=== PATIENT | female | born 1955 | race American Indian/Alaskan Native ===

== ENCOUNTER 2022-01-21 22:55 | Inpatient (IN) | payer SELFPAY ==
[2022-01-21] MEDS ORDERED: CLOPIDOGREL 300 MG TAB ONE (23:00)
[2022-01-21] MEDS ORDERED: ASPIRIN 81 MG TAB CHEW ONE (23:10)
[2022-01-21] MEDS ORDERED: CLOPIDOGREL 300 MG TAB PO ONE (23:13)
[2022-01-21] MEDS ORDERED: HEPARIN 10,000 UNITS/10 ML VIAL IV PRN (23:13)
[2022-01-21] MEDS ORDERED: ONDANSETRON 4 MG/2 ML INJ IV ONE (23:13)
[2022-01-21] MEDS ORDERED: ASPIRIN 81 MG TAB CHEW PO ONE (23:13)
[2022-01-21] MEDS ORDERED: HEPARIN 10,000 UNITS/10 ML VIAL IV ONE (23:13)
[2022-01-21] MEDS ORDERED: MORPHINE 4 MG/1 ML INJ IV ONE (23:14)
[2022-01-21] MEDS ORDERED: NITROGLYCERIN 0.4 MG TAB SUBL SL PRN ×2 (23:14→23:35)
[2022-01-21 23:29] LABS: Basophils # (Auto) 0.1 K/mm3 (0.0-0.1); Basophils % (Auto) 1.3 % (0.0-1.8); Eosinophils # (Auto) 0.1 K/mm3 (0.0-0.4); Eosinophils % (Auto) 1.7 % (0.0-4.3); Hematocrit 44.9 % (30.3-42.9); Hemoglobin 14.4 gm/dl (10.1-14.3); Lymphocytes # (Auto) 2.6 K/mm3 (1.2-5.4); Lymphocytes % (Auto) 31.1 % (13.4-35.0); Mean Corpuscular HGB Conc 32 % (30-34); Mean Corpuscular Volume 78 fl (79-97); Monocytes # (Auto) 0.4 K/mm3 (0.0-0.8); Monocytes % (Auto) 4.7 % (0.0-7.3); Platelet Count 296 K/mm3 (140-440); Red Blood Count 5.76 M/mm3 (3.65-5.03); Red Cell Distribution Width 17.2 % (13.2-15.2)
[2022-01-21] MEDS: NITROGLYCERIN DRIP 50 MG/250 ML BOTTLE IV SCH (23:32)
--- NOTE | 2022-01-21 23:32 | Emergency Department Report ---
ED Chest Pain HPI - General Chief Complaint: Chest Pain Stated Complaint: CHEST PAINS Time Seen by Provider: 01/21/22 23:12 Source: patient, family, RN notes reviewed Mode of arrival: Ambulatory Limitations: Physical Limitation - History of Present Illness Initial Comments: The patient was evaluated in the emergency department for symptoms described in the history of present illness. He/she was evaluated in the context of the global COVID-19 pandemic, which necessitated consideration that the patient might be at risk for infection with the virus that causes COVID-19. Institutional protocols and algorithms that pertain to the evaluation of patien ts at risk for COVID-19 are in a state of rapid change based on information released by regulatory bodies including the CDC and federal and state organizations. These policies and algorithms were followed during the patient's care in the emergency department. Please note that these policies, procedures and recommendations changed on a rapid basis. The patient is a 66-year-old female who presents to the ER today with a complaint of acute stuttering chest pain. She has nausea and some shortness of breath. She is found to be hypertensive in the emergency room, with evidence of septal STEMI with high lateral involvement. The patient denies hematemesis and bright red blood per rectum. The patient denies travel, surgery, immobilization, DVT and pulmonary embolism risk factors. A code STEMI was called overhead immediately upon evaluation. The EKG is transmitted to our technical solution architect, Dr. Durbin at 1109 pm, while simultaneously activating code STEMI. Patient medicated maximally in the emergency room, with full dose aspirin, 600 mg of Plavix at the recommendation of the aforementioned assistant superintendent for curriculum, initiation of nitroglycerin drip for hypertensive emergency with acute chest pain, and initiation of heparinization, also in conjunction with recommendation of Dr. Durbin Patient did endorse some resolution and improvement in symptoms with initiation of nitroglycerin drip. Discussed with critical care physician, Dr. Castro, who authorized admission to the ICU postcatheterization. Hospital physician, Dr. Suresh to admit Extensive discussion had with patient and daughter at the bedside, who articulated understanding. Complaint: chest pain -: Gradual Onset: during rest, during exertion Pain Location: substernal, left chest Severity: severe Quality: aching, heaviness Consistency: constant Improves With: nitroglycerin re: nausea Aspirin use within the Past 7 Days: (1) Yes - Related Data Allergies Allergy/AdvReac Type Severity Reaction Status Date / Time No Known Allergies Allergy Verified 01/21/22 23:36 Heart Score - HEART Score History: Highly suspicious EKG: Significant ST-depression Age: 45-65 Risk factors: 1-2 risk factors Troponin: > 3x normal limit HEART Score: 8 - EKG Read Time Time EKG Completed: 11:07 EKG Read Time: 11:08 - Critical Actions Critical Actions: >7 pts:50-65% risk of adverse cardiac event. Early invasive measures ED Review of Systems ROS: Stated complaint: CHEST PAINS Other details as noted in HPI Constitutional: malaise. denies: fever Eyes: denies: eye discharge ENT: denies: epistaxis Respiratory: shortness of breath Cardiovascular: chest pain Gastrointestinal: denies: hematemesis, melena, hematochezia Neurological: weakness Psychiatric: anxiety Hematological/Lymphatic: denies: easy bleeding ED Past Medical Hx - Past Medical History Previous Medical History?: Yes Hx Hypertension: Yes Hx Diabetes: Yes Hx Arthritis: Yes - Surgical History Past Surgical History?: Yes Additional Surgical History: - Social History Smoking Status: Never Smoker Substance Use Type: None ED Physical Exam - General Limitations: Physical Limitation General appearance: anxious, in distress - Head Head exam: Present: atraumatic, normocephalic - Eye Eye exam: Present: normal appearance, EOMI. Absent: nystagmus - ENT ENT exam: Present: normal exam, normal orophraynx, mucous membranes moist, no rmal external ear exam - Neck Neck exam: Present: normal inspection, full ROM. Absent: tenderness, meningismus - Respiratory Respiratory exam: Present: respiratory distress. Absent: rhonchi, stridor - Cardiovascular Cardiovascular Exam: Present: normal rhythm, tachycardia, normal heart sounds. Absent: bradycardia, irregular rhythm, systolic murmur, diastolic murmur, rubs, gallop - GI/Abdominal GI/Abdominal exam: Present: soft. Absent: distended, tenderness, guarding, rebound, rigid, pulsatile mass - Rectal Rectal exam: Present: normal inspection - External exam: Present: normal external exam - Extremities Exam Extremities exam: Present: normal inspection, full ROM, other (2+ pulses noted in the bilateral upper and lower extremities. There is no palpable cord. negative Homans sign. Muscular compartments are soft. The pelvis is stable.). Absent: pedal edema, calf tenderness - Back Exam Back exam: Present: normal inspection. Absent: tenderness, CVA tenderness (R), CVA tenderness (L), paraspinal tenderness, vertebral tenderness - Neurological Exam Neurological exam: Present: alert, oriented X3, other (No facial droop. Tongue midline. Extraocular movements intact bilaterally. Facial sensation intact to light touch in V1, V2, V3 distribution bilaterally. 5 and a 5 strength in 4 extremities. Sensation intact to light touch in 4 extremities.) - Psychiatric Psychiatric exam: Present: anxious - Skin Skin exam: Present: warm, dry, intact, normal color. Absent: rash ED Course Vital Signs 01/21/22 22:56 Temperature 99.1 F Pulse Rate 113 H Respiratory 24 Rate Blood Pressure 228/150 O2 Sat by Pulse 94 Oximetry - Reevaluation(s) Reevaluation #1: 01/21/22 23:42 Differential diagnosis, including but not limited to: Hypertensive emergency, STEMI, acute coronary syndrome, pulmonary edema Assessment and plan: 66-year-old female with very clinically concerning chest pain, accompanied by hypertension, and EKG suggestive of STEMI. Blood pressure markedly improved with initiation of nitroglycerin drip, blood pressure currently 165 mmHg systolic. To be medicated with aspirin, Plavix, heparin, morphine. Extensive discussion has been had with patient and family. Interventional cardiology to take patient to the cardiac catheterization lab for presumed STEMI. Critical care consulted, hospital physician to admit patient to the medical service. Please note that secondary to the time sensitive nature of presumed STEMI, patient will have left the emergency room before all of her laboratory studies have resulted. Therefore, she may have laboratory studies which are actionable, but she is no longer in the emergency room. We will therefore defer to the inpatient team to follow-up on her laboratory studies, and address any abnormalities, should be required. JALIL score - Jalil Score Age > 65: (0) No Aspirin use within the Past 7 Days: (1) Yes 3 or more CAD Risk Factors: (0) No 2 or more Angina events in past 24 hrs: (1) Yes Known CAD with more than 50% Stenosis: (1) Yes Elevated Cardiac Markers: (1) Yes ST Deviation Greater than 0.5mm: (1) Yes JALIL Score: 5 ED Medical Decision Making - Lab Data Result diagrams: 01/21/22 23:19 01/21/22 23:19 Vital Signs 01/21/22 22:56 Temperature 99.1 F Pulse Rate 113 H Respiratory 24 Rate Blood Pressure 228/150 O2 Sat by Pulse 94 Oximetry Lab Results 01/21/22 01/21/22 01/21/22 Range/Units 23:19 23:19 23:19 WBC 8.2 (4.5-11.0) K/mm3 RBC 5.76 H (3.65-5.03) M/mm3 Hgb 14.4 H (10.1-14.3) gm/dl Hct 44.9 H (30.3-42.9) % MCV 78 L (79-97) fl MCH 25 L (28-32) pg MCHC 32 (30-34) % RDW 17.2 H (13.2-15.2) % Plt Count 296 (140-440) K/mm3 Lymph % (Auto) 31.1 (13.4-35.0) % [place] % (Auto) 4.7 (0.0-7.3) % Eos % (Auto) 1.7 (0.0-4.3) % Baso % (Auto) 1.3 (0.0-1.8) % Lymph # (Auto) 2.6 (1.2-5.4) K/mm3 [place] # (Auto) 0.4 (0.0-0.8) K/mm3 Eos # (Auto) 0.1 (0.0-0.4) K/mm3 Baso # (Auto) 0.1 (0.0-0.1) K/mm3 Seg Neutrophils % 61.2 (40.0-70.0) % Seg Neutrophils # 5.1 (1.8-7.7) K/mm3 PT 13.4 (12.2-14.9) Sec. INR 0.92 (0.87-1.13) APTT 27.5 (24.2-36.6) Sec. Sodium 140 (137-145) mmol/L Potassium 3.5 L (3.6-5.0) mmol/L Chloride 100.3 (98-107) mmol/L Carbon Dioxide 25 (22-30) mmol/L Anion Gap 18 mmol/L BUN 12 (7-17) mg/dL Creatinine 0.7 (0.6-1.2) mg/dL Estimated GFR > 60 ml/min BUN/Creatinine Ratio 17 % Glucose 264 H (65-100) mg/dL Calcium 9.8 (8.4-10.2) mg/dL Total Bilirubin 0.20 (0.1-1.2) mg/dL AST 24 (5-40) units/L ALT 15 (7-56) units/L Alkaline Phosphatase 129 (35-129) units/L Total Creatine Kinase 249 H (30-135) units/L CK-MB (CK-2) 18.5 H (0.0-4.0) ng/mL CK-MB (CK-2) Rel Index 7.4 H (0-4) Troponin T 0.211 H* (0.00-0.029) ng/mL Total Protein 8.1 (6.3-8.2) g/dL Albumin 4.7 (3.9-5) g/dL Albumin/Globulin Ratio 1.4 % Blood Type Antibody Screen 01/21/22 Range/Units 23:19 WBC (4.5-11.0) K/mm3 RBC (3.65-5.03) M/mm3 Hgb (10.1-14.3) gm/dl Hct (30.3-42.9) % MCV (79-97) fl MCH (28-32) pg MCHC (30-34) % RDW (13.2-15.2) % Plt Count (140-440) K/mm3 Lymph % (Auto) (13.4-35.0) % [place] % (Auto) (0.0-7.3) % Eos % (Auto) (0.0-4.3) % Baso % (Auto) (0.0-1.8) % Lymph # (Auto) (1.2-5.4) K/mm3 [place] # (Auto) (0.0-0.8) K/mm3 Eos # (Auto) (0.0-0.4) K/mm3 Baso # (Auto) (0.0-0.1) K/mm3 Seg Neutrophils % (40.0-70.0) % Seg Neutrophils # (1.8-7.7) K/mm3 PT (12.2-14.9) Sec. INR (0.87-1.13) APTT (24.2-36.6) Sec. Sodium (137-145) mmol/L Potassium (3.6-5.0) mmol/L Chloride (98-107) mmol/L Carbon Dioxide (22-30) mmol/L Anion Gap mmol/L BUN (7-17) mg/dL Creatinine (0.6-1.2) mg/dL Estimated GFR ml/min BUN/Creatinine Ratio % Glucose (65-100) mg/dL Calcium (8.4-10.2) mg/dL Total Bilirubin (0.1-1.2) mg/dL AST (5-40) units/L ALT (7-56) units/L Alkaline Phosphatase (35-129) units/L Total Creatine Kinase (30-135) units/L CK-MB (CK-2) (0.0-4.0) ng/mL CK-MB (CK-2) Rel Index (0-4) Troponin T (0.00-0.029) ng/mL Total Protein (6.3-8.2) g/dL Albumin (3.9-5) g/dL Albumin/Globulin Ratio % Blood Type O POSITIVE Antibody Screen Negative Vital Signs 01/21/22 22:56 Temperature 99.1 F Pulse Rate 113 H Respiratory 24 Rate Blood Pressure 228/150 O2 Sat by Pulse 94 Oximetry - EKG Data -: EKG Interpreted by Mi - EKG Data Interpretation: acute FL 01/21/22 23:41 The initial EKG is interpreted by myself is consistent with STEMI. The initial EKG is interpreted at 23: 0 8 PM. This is a sinus rhythm, with a ventricular rate of 105 bpm. There is a leftward axis deviation. There is ST elevation consistent with STEMI V2, V3, V4, lead I, and aVL, with reciprocal depression in the inferior leads. There is normal P wave axis. There is no prior EKG available for comparison. - Radiology Data Radiology results: pending, report reviewed, image reviewed Chest single view INDICATION: Chest pain IMPRESSION: Mild bilateral interstitial edema. Heart size is within normal limits. Signer Name: Varun Dunbar MD Signed: 01/21/2022 10:47 PM Workstation Name: [email or web address] Critical Care Time: Yes Critical care time in (mins) excluding proc time.: 45 Critical care attestation.: If time is entered above; I have spent that time in minutes in the direct care of this critically ill patient, excluding procedure time. ED Disposition Clinical Impression: STEMI (ST elevation myocardial infarction), Hypertensive emergency Disposition: 09 ADMITTED INPATIENT Is pt being admited?: Yes Does the pt Need Aspirin: No (given in er) Condition: Critical Instructions: Hypertension (ED) Referrals: KAUSHAL CONNELLY MD [Primary Care Provider] - 3-5 Days
[2022-01-21] MEDS ORDERED: traMADol 50 MG TAB PO PRN (23:35)
[2022-01-21] MEDS ORDERED: DEXTROSE 50% IN WATER (25GM) 50 ML SYRINGE IV PRN (23:35)
[2022-01-21] MEDS ORDERED: ACETAMINOPHEN 325 MG TAB PO PRN (23:35)
--- NOTE | 2022-01-21 23:42 | History and Physical Report ---
History of Present Illness Date of examination: 01/21/22 Date of admission: 01/21/22 Chief complaint: Chest pain STEMI History of present illness: 66 years old female with history of hypertension, diabetes was brought to the emergency room because of severe chest pain 10/10 left-sided for last 1 hour. In the emergency room EKG consistent with septal acute myocardial infarction. She has nausea and some shortness of breath. She is found to be hypertensive in the emergency room, with evidence of septal STEMI with high lateral involvement. Initial troponin is 0.211. Subsequently Case was discussed with on-call interventional cardiology Dr. Hernández. Patient is going to the [facility] for cardiac cath and further evaluation and treatment.Patient medicated maximally in the emergency room, with full dose aspirin, 600 mg of Plavix at the recommendation of the aforementioned dealer development manager, initiation of nitroglycerin drip for hypertensive emergency with acute chest pain, and initiation of heparinization, also in conjunction with recommendation of Dr. Durbin. We also consult critical care Dr. Castro. Past History Past Medical History: arthritis, diabetes, hypertension Past Surgical History: , Other () Social history: smoking Family history: diabetes, hypertension Medications and Allergies Allergies Allergy/AdvReac Type Severity Reaction Status Date / Time No Known Allergies Allergy Verified 01/21/22 23:36 Active Meds: Active Medications Heparin Sodium (Porcine) (Heparin 10,000 Units/10 Ml Vial) 0 unit IV Q6H PRN; Protocol PRN Reason: Anti-Xa Assay less than 0.1 un Heparin Sodium (Porcine) (Heparin 1,000 Unit/1 Ml Vial) 4,000 unit IV BOLUS ONE Stop: 01/21/22 23:14 Heparin Sodium/Sodium Chloride (Heparin/ 0.45% Nacl-25,000 Unit/500 Ml) 25,000 unit in 500 mls @ 0 mls/hr IV TITRATE IVETTE; Protocol Sodium Chloride (Nacl 0.9% 500 Ml) 500 mls @ 50 mls/hr IV DIRECT IVETTE Nitroglycerin/Dextrose (Tridil Drip 50mg/250ml) 50 mg in 250 mls @ 3 mls/hr IV TITR IVETTE; Protocol Last Admin: 01/21/22 23:32 Dose: 100 mcg/min, 30 mls/hr Nitroglycerin (Nitroglycerin 0.4 Mg Tab Subl) 0.4 mg SL .Q5MIN PRN PRN Reason: Chest Pain Review of Systems All systems: negative Cardiovascular: chest pain, lightheadedness, shortness of breath, dyspnea on exertion Exam - Constitutional Vitals: Temp Pulse Resp BP Pulse Ox 99.1 F 113 H 24 228/150 94 01/21/22 22:56 01/21/22 22:56 01/21/22 22:56 01/21/22 22:56 01/21/22 22:56 General appearance: Present: no acute distress, well-nourished - EENT Eyes: Present: PERRL ENT: hearing intact, clear oral mucosa - Neck Neck: Present: supple, normal ROM - Respiratory Respiratory effort: normal Respiratory: bilateral: diminished - Cardiovascular Heart Sounds: Present: S1 & S2. Absent: rub, click - Extremities Extremities: pulses symmetrical, No edema Peripheral Pulses: within normal limits - Abdominal General gastrointestinal: Present: soft, non-tender, non-distended, normal bowel sounds Female genitourinary: Present: normal - Integumentary Integumentary: Present: clear, warm, dry - Musculoskeletal Musculoskeletal: gait normal, strength equal bilaterally - Psychiatric Psychiatric: appropriate mood/affect, intact judgment & insight - Neurologic Neurologic: CNII-XII intact, moves all extremities Results - Labs CBC & Chem 7: 01/21/22 23:19 01/21/22 23:19 Labs: Laboratory Last Values WBC 8.2 K/mm3 (4.5-11.0) 01/21/22 23:19 RBC 5.76 M/mm3 (3.65-5.03) H 01/21/22 23:19 Hgb 14.4 gm/dl (10.1-14.3) H 01/21/22 23:19 Hct 44.9 % (30.3-42.9) H 01/21/22 23:19 MCV 78 fl (79-97) L 01/21/22 23:19 MCH 25 pg (28-32) L 01/21/22 23:19 MCHC 32 % (30-34) 01/21/22 23:19 RDW 17.2 % (13.2-15.2) H 01/21/22 23:19 Plt Count 296 K/mm3 (140-440) 01/21/22 23:19 Lymph % (Auto) 31.1 % (13.4-35.0) 01/21/22 23:19 [place] % (Auto) 4.7 % (0.0-7.3) 01/21/22 23:19 Eos % (Auto) 1.7 % (0.0-4.3) 01/21/22 23:19 Baso % (Auto) 1.3 % (0.0-1.8) 01/21/22 23:19 Lymph # (Auto) 2.6 K/mm3 (1.2-5.4) 01/21/22 23:19 [place] # (Auto) 0.4 K/mm3 (0.0-0.8) 01/21/22 23:19 Eos # (Auto) 0.1 K/mm3 (0.0-0.4) 01/21/22 23:19 Baso # (Auto) 0.1 K/mm3 (0.0-0.1) 01/21/22 23:19 Seg Neutrophils % 61.2 % (40.0-70.0) 01/21/22 23:19 Seg Neutrophils # 5.1 K/mm3 (1.8-7.7) 01/21/22 23:19 Blood Type O POSITIVE 01/21/22 23:19 Assessment and Plan VTE prophylaxis?: Chemical Plan of care discussed with patient/family: Yes - Patient Problems (1) STEMI (ST elevation myocardial infarction) Current Visit: Yes Status: Acute Plan to address problem: Admit the patient to the critical care unit. Patient already got aspirin 325 p.o. x1 dose. Lipitor 40 mg p.o. nightly. Patient is going to the [facility] for further evaluation and treatment. Cardiology evaluation. Echocardiogram. Serial cardiac enzyme (2) Diabetes Current Visit: Yes Status: Acute Plan to address problem: Accu-Chek every 6 hours with Humalog moderate dose coverage. Diabetic education (3) Arthritis Current Visit: Yes Status: Acute Plan to address problem: Tylenol 650 mg p.o. every 6 hours as needed. Morphine 2 mg IV every 4 hours as needed (4) Tobacco abuse Current Visit: Yes Status: Acute Plan to address problem: We counseled the patient regarding quitting smoking. We put the patient on nicotine patch. (5) Hypertensive emergency Current Visit: Yes Status: Acute Plan to address problem: We put the patient on nitroglycerin drip.. We continue the home medication. We will monitor the patient closely (6) DVT prophylaxis Current Visit: Yes Status: Acute Plan to address problem: Anticoagulation as per cardiology for DVT prophylaxis. Pepcid 20 mg IV every 12 hours for GI prophylaxis. Patient is a full code
[2022-01-21] MEDS ORDERED: SODIUM CHLORIDE 0.9% 1000 ML 1,000 ML ONE (23:44)
[2022-01-21] MEDS ORDERED: SODIUM CHLORIDE 0.9% 500 ML 500 ML IV SCH (23:45)
[2022-01-21] MEDS ORDERED: SODIUM CHLORIDE 0.9% 1000 ML 1,000 ML IV SCH (23:45)
[2022-01-21] MEDS ORDERED: HEPARIN/NS 5000 UNIT/500ML 1,000 ML IR ONE (23:45)
[2022-01-21] MEDS ORDERED: MIDAZOLAM 2 MG/2 ML INJ ONE (23:45)
[2022-01-21] MEDS ORDERED: HEPARIN/ 0.45% NACL DRIP 25,000 UNIT/500 ML BAG IV SCH (23:45)
[2022-01-21 23:46] LABS: INR 0.92 (0.87-1.13)
[2022-01-21] MEDS ORDERED: fentaNYL 100 MCG/2 ML INJ ONE (23:46)
[2022-01-21] MEDS ORDERED: NITROGLYCERIN SYRINGE 3 ML ONE (23:46)
[2022-01-21] MEDS ORDERED: VERAPAMIL 5 MG/2 ML INJ ONE (23:46)
[2022-01-21 23:47] LABS: Partial Thromboplastin Time 27.5 Sec. (24.2-36.6)
[2022-01-21] MEDS ORDERED: LIDOCAINE (2%) 20 MG/1 ML VIAL 20 ML MDV INFILTRATI ONE (23:47)
[2022-01-21 23:50] LABS: Creatine Kinase MB 18.5 ng/mL (0.0-4.0)
[2022-01-21 23:51] LABS: Alanine Aminotransferase 15 units/L (7-56); Albumin 4.7 g/dL (3.9-5); Blood Urea Nitrogen 12 mg/dL (7-17); Calcium 9.8 mg/dL (8.4-10.2); Hemolysis Index 6
[2022-01-21 23:52] LABS: BUN/Creatinine Ratio 17
--- NOTE | 2022-01-21 23:52 | XRay Report ---
Chest single view INDICATION: Chest pain IMPRESSION: Mild bilateral interstitial edema. Heart size is within normal limits. Signer Name: Varun Dunbar MD Signed: 01/21/2022 11:47 PM Workstation Name: [email or web address]
[2022-01-22] MEDS: HEPARIN 10,000 UNITS/10 ML VIAL ONE ×2 (00:08→00:23)
[2022-01-22] MEDS ORDERED: TIROFIBAN/NS 12,500 MCG/250 ML BAG IV ONE (00:19)
[2022-01-22] MEDS: NITROGLYCERIN DRIP 50 MG/250 ML BOTTLE IV SCH (00:24)
--- NOTE | 2022-01-22 00:53 | Consultation ---
History of Present Illness Consult date: 01/22/22 Consult reason: other (Acute DE) History of present illness: 66-year-old woman with a history of diabetes, who reports no prior cardiac history, presented with chest pain, ECG consistent with an acute anterolateral ST elevation myocardial infarction. She was taken to the cardiac catheterization laboratory under emergency protocol, where we found complete occlusion of the LAD in its proximal segment. Successful primary angioplasty restored JALIL-3 flow, and the residual lesion was stabilized with a 3.5 x 8 mm drug-eluting stent. The patient is admitted to the CCU for post DE supportive care on guideline directed medical therapy. Past History Past Medical History: arthritis, diabetes, hypertension Past Surgical History: , Other () Social history: smoking Family history: diabetes, hypertension Medications and Allergies Allergies Allergy/AdvReac Type Severity Reaction Status Date / Time No Known Allergies Allergy Verified 01/21/22 23:36 Active Meds: Active Medications Acetaminophen (Acetaminophen 325 Mg Tab) 650 mg PO Q6H PRN PRN Reason: Pain, Mild (1-3) Aspirin (Aspirin Ec 81 Mg Tab) 81 mg PO QDAY IVETTE Atorvastatin Calcium (Atorvastatin 40 Mg Tab) 40 mg PO QHS IVETTE Clopidogrel Bisulfate (Clopidogrel 75 Mg Tab) 75 mg PO QDAY IVETTE Dextrose (Dextrose 50% In Water (25gm) 50 Ml Syringe) 50 ml IV Q30MIN PRN; Protocol PRN Reason: Hypoglycemia Sodium Chloride (Nacl 0.9% 500 Ml) 500 mls @ 50 mls/hr IV DIRECT IVETTE Nitroglycerin/Dextrose (Tridil Drip 50mg/250ml) 50 mg in 250 mls @ 3 mls/hr IV TITR IVETTE; Protocol Last Admin: 01/22/22 00:24 Dose: 100 mcg/min, 30 mls/hr Sodium Chloride (Nacl 0.9% 1000 Ml) 1,000 mls @ 100 mls/hr IV DIRECT IVETTE Stop: 01/22/22 09:44 Tirofiban/Sodium Chloride (Aggrastat Drip (12.5 Mg/250 Ml)) 12,500 mcg in 250 mls @ 0 mls/hr IV DIRECT IVETTE; Protocol Stop: 01/22/22 18:59 Insulin Human Lispro (Insulin Lispro 100 Unit/Ml) 0 unit SUB-Q Q6HR IVETTE; Protocol Lisinopril (Lisinopril 5 Mg Tab) 5 mg PO QDAY [facility] Metoprolol Tartrate (Metoprolol Tartrate 50 Mg Tab) 50 mg PO BID [facility] Morphine Sulfate (Morphine 4 Mg/1 Ml Inj) 2 mg IV Q5MIN PRN PRN Reason: Chest Pain unrelieved by NTG Nitroglycerin (Nitroglycerin 0.4 Mg Tab Subl) 0.4 mg SL Q5M PRN PRN Reason: Chest Pain Pantoprazole Sodium (Pantoprazole 40 Mg Tab) 40 mg PO QDAY [facility] Sodium Chloride (Sodium Chloride 0.9% 10 Ml Flush Syringe) 10 ml IV PRN PRN PRN Reason: LINE FLUSH Tramadol HCl (Tramadol 50 Mg Tab) 50 mg PO Q6H PRN PRN Reason: Pain, Moderate (4-6) Review of Systems Cardiovascular: chest pain, shortness of breath, no orthopnea, no palpitations, no rapid/irregular heart beat, no edema, no syncope, no lightheadedness Physical Examination Vital Signs Temp Pulse Resp BP Pulse Ox 99.1 F 113 H 24 228/150 94 01/21/22 22:56 01/21/22 22:56 01/21/22 22:56 01/21/22 22:56 01/21/22 22:56 General appearance: mild distress HEENT: Positive: PERRL Neck: Positive: neck supple Cardiac: Positive: Reg Rate and Rhythm Lungs: Positive: Decreased Breath Sounds Neuro: Positive: Grossly Intact Abdomen: Positive: Soft Female genitourinary: deferred Skin: Positive: Clear Extremities: Absent: edema Results 01/21/22 23:19 01/21/22 23:19 Cardiac Enzymes 01/21/22 Range/Units 23:19 AST 24 (5-40) units/L CK-MB (CK-2) 18.5 H (0.0-4.0) ng/mL Coagulation 01/21/22 Range/Units 23:19 PT 13.4 (12.2-14.9) Sec. INR 0.92 (0.87-1.13) APTT 27.5 (24.2-36.6) Sec. CBC 01/21/22 Range/Units 23:19 WBC 8.2 (4.5-11.0) K/mm3 RBC 5.76 H (3.65-5.03) M/mm3 Hgb 14.4 H (10.1-14.3) gm/dl Hct 44.9 H (30.3-42.9) % Plt Count 296 (140-440) K/mm3 Lymph # (Auto) 2.6 (1.2-5.4) K/mm3 [place] # (Auto) 0.4 (0.0-0.8) K/mm3 Eos # (Auto) 0.1 (0.0-0.4) K/mm3 Baso # (Auto) 0.1 (0.0-0.1) K/mm3 Comprehensive Metabolic Panel 01/21/22 Range/Units 23:19 Sodium 140 (137-145) mmol/L Potassium 3.5 L (3.6-5.0) mmol/L Chloride 100.3 (98-107) mmol/L Carbon Dioxide 25 (22-30) mmol/L BUN 12 (7-17) mg/dL Creatinine 0.7 (0.6-1.2) mg/dL Glucose 264 H (65-100) mg/dL Calcium 9.8 (8.4-10.2) mg/dL AST 24 (5-40) units/L ALT 15 (7-56) units/L Alkaline Phosphatase 129 (35-129) units/L Total Protein 8.1 (6.3-8.2) g/dL Albumin 4.7 (3.9-5) g/dL EKG interpretations - Telemetry EKG Rhythm: Sinus Rhythm (With an acute anterolateral wall ST elevation myocardial infarction) Assessment and Plan - Patient Problems (1) STEMI (ST elevation myocardial infarction) Current Visit: Yes Status: Acute Plan to address problem: Patient is status post successful primary angioplasty and stenting of the LAD following an acute anterolateral STEMI. Admitted to the CCU for supportive management on guideline directed medical management. Echocardiogram is ordered for left ventricular function assessment. Prognosis is guarded.
[2022-01-22] MEDS ORDERED: POTASSIUM CHLORIDE ER 20 MEQ TAB PO ONE (00:54)
[2022-01-22 00:56] LABS: Chol/HDL Ratio 6.97 %; HDL Cholesterol 47 mg/dL (40-59); LDL Cholesterol,Direct 246 mg/dL (50-130)
[2022-01-22] MEDS ORDERED: TIROFIBAN/NS 12,500 MCG/250 ML BAG IV SCH (01:00)
[2022-01-22] MEDS: METOPROLOL TARTRATE 50 MG TAB PO SCH ×3 (02:24→21:21)
[2022-01-22] MEDS: INSULIN LISPRO 100 UNIT/ML SUB-Q SCH ×5 (02:24→21:41)
[2022-01-22] MEDS: ASPIRIN EC 81 MG TAB PO SCH (09:07)
[2022-01-22] MEDS: CLOPIDOGREL 75 MG TAB PO SCH (09:07)
--- NOTE | 2022-01-22 09:49 | Electrocardiograph Report ---
[facility] Test Date: 2022-01-22 Test Time: 01:23:54 Pat Name: MIRZA DOZIER Department: Room: A256 1 Gender: F Primary Care Nurse Practitioner: ANASTASIA : 1955 Requested By: JO ANN TEMPLETON Order Number: [id number] Reading MD: Janes Mata Measurements Intervals [place] Rate: 92 P: 34 MI: 121 QRS: 79 QRSD: 80 T: 80 QT: 379 QTc: 469 Interpretive Statements Sinus rhythm Multiple ventricular premature complexes Anterolateral infarct, acute Compared to ECG 01/21/2022 23:04:20 Ventricular premature complex(es) now present Sinus tachycardia no longer present Left ventricular hypertrophy no longer present Myocardial infarct finding still present Electronically Signed On 01-22-2022 9:49:31 EDT by Janes Mata
--- NOTE | 2022-01-22 09:49 | Electrocardiograph Report ---
[facility] Test Date: 2022-01-21 Test Time: 23:04:20 Pat Name: MIRZA DOZIER Department: Room: A256 1 Gender: F Lead Sustainability Specialist: CLAUDIA : 1955 Requested By: BENJAMIN ARMENDARIZ Order Number: [id number] Reading MD: Janes Mata Measurements Intervals [place] Rate: 100 P: 48 PA: 138 QRS: -33 QRSD: 89 T: -14 QT: 353 QTc: 456 Interpretive Statements Sinus tachycardia Left ventricular hypertrophy Anterolateral infarct, acute No previous ECG available for comparison Electronically Signed On 01-22-2022 9:49:19 EDT by Janes Mata
[2022-01-22] MEDS ORDERED: LISINOPRIL 5 MG TAB PO SCH (10:00)
[2022-01-22] MEDS ORDERED: PANTOPRAZOLE 40 MG TAB PO SCH (10:00)
[2022-01-22] MEDS ORDERED: LISINOPRIL 20 MG TAB PO SCH (10:00)
[2022-01-22] MEDS ORDERED: ONDANSETRON 4 MG/2 ML INJ IV PRN (10:02)
[2022-01-22 10:40] LABS: Hemoglobin 12.2 gm/dl (10.1-14.3); Mean Corpuscular HGB Conc 32 % (30-34); Mean Corpuscular Volume 78 fl (79-97); Platelet Count 277 K/mm3 (140-440); Red Blood Count 4.88 M/mm3 (3.65-5.03); Red Cell Distribution Width 17.2 % (13.2-15.2)
[2022-01-22 11:22] LABS: BUN/Creatinine Ratio 14; Blood Urea Nitrogen 13 mg/dL (7-17); Calcium 8.9 mg/dL (8.4-10.2); Hemolysis Index 11
[2022-01-22 11:54] LABS: Creatine Kinase MB > 600.0 ng/mL (0.0-4.0)
--- NOTE | 2022-01-22 12:09 | Consultation ---
History of Present Illness - Reason for Consult Consult date: 01/22/22 STEMI Requesting physician: BENJAMIN ARMENDARIZ - History of Present Illness 66 y/o woman presents with chest pain, found to have chest pain. 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 Awake and alert, on Nitro at 75. No current chest pain. Getting echo right now. Past History Past Medical History: arthritis, diabetes, hypertension Past Surgical History: , Other () Social history: smoking Family history: diabetes, hypertension Medications and Allergies Allergies Allergy/AdvReac Type Severity Reaction Status Date / Time No Known Allergies Allergy Verified 01/21/22 23:36 Active Meds: Active Medications Acetaminophen (Acetaminophen 325 Mg Tab) 650 mg PO Q6H PRN PRN Reason: Pain, Mild (1-3) Aspirin (Aspirin Ec 81 Mg Tab) 81 mg PO QDAY [facility] Last Admin: 01/22/22 09:07 Dose: 81 mg Atorvastatin Calcium (Atorvastatin 40 Mg Tab) 40 mg PO QHS IVETTE Clopidogrel Bisulfate (Clopidogrel 75 Mg Tab) 75 mg PO QDAY IVETTE Last Admin: 01/22/22 09:07 Dose: 75 mg Dextrose (Dextrose 50% In Water (25gm) 50 Ml Syringe) 50 ml IV Q30MIN PRN; Protocol PRN Reason: Hypoglycemia Sodium Chloride (Nacl 0.9% 500 Ml) 500 mls @ 50 mls/hr IV DIRECT IVETTE Nitroglycerin/Dextrose (Tridil Drip 50mg/250ml) 50 mg in 250 mls @ 3 mls/hr IV TITR IVETTE; Protocol Last Titration: 01/22/22 12:01 Dose: 50 mcg/min, 15 mls/hr Tirofiban/Sodium Chloride (Aggrastat Drip (12.5 Mg/250 Ml)) 12,500 mcg in 250 mls @ 13.5 mls/hr IV DIRECT IVETTE; Protocol Stop: 01/22/22 18:59 Last Admin: 01/22/22 01:00 Dose: 13.5 mls/hr Insulin Glargine (Insulin Glargine 100 Units/Ml) 10 units SUB-Q QAMDIAB IVETTE Insulin Human Lispro (Insulin Lispro 100 Unit/Ml) 0 unit SUB-Q ACHS IVETTE; Protocol Metoprolol Tartrate (Metoprolol Tartrate 50 Mg Tab) 50 mg PO BID [facility] Last Admin: 01/22/22 09:07 Dose: 50 mg Morphine Sulfate (Morphine 4 Mg/1 Ml Inj) 2 mg IV Q5MIN PRN PRN Reason: Chest Pain unrelieved by NTG Nifedipine (Nifedipine Xl 60 Mg Tab) 60 mg PO QDAY [facility] Nitroglycerin (Nitroglycerin 0.4 Mg Tab Subl) 0.4 mg SL Q5M PRN PRN Reason: Chest Pain Last Admin: 01/22/22 09:16 Dose: 0.4 mg Ondansetron HCl (Ondansetron 4 Mg/2 Ml Inj) 4 mg IV Q4H PRN PRN Reason: Nausea And Vomiting Last Admin: 01/22/22 10:18 Dose: 4 mg Pantoprazole Sodium (Pantoprazole 40 Mg Tab) 40 mg PO QDAY [facility] Last Admin: 01/22/22 09:07 Dose: 40 mg Sodium Chloride (Sodium Chloride 0.9% 10 Ml Flush Syringe) 10 ml IV PRN PRN PRN Reason: LINE FLUSH Tramadol HCl (Tramadol 50 Mg Tab) 50 mg PO Q6H PRN PRN Reason: Pain, Moderate (4-6) Review of Systems All systems: negative Exam - Constitutional Vitals: Temp Pulse Resp BP Pulse Ox 97.6 F 86 21 135/87 93 01/22/22 08:00 01/22/22 11:45 01/22/22 11:45 01/22/22 11:45 01/22/22 11:45 General appearance: Present: no acute distress, obese - EENT Eyes: Present: PERRL, EOM intact ENT: hearing intact - Neck Neck: Present: supple, normal ROM - Respiratory Respiratory effort: normal Respiratory: bilateral: diminished - Cardiovascular Rhythm: regular Results - Labs CBC & Chem 7: 01/22/22 10:10 01/22/22 10:10 Labs: Abnormal lab results 01/21/22 01/21/22 01/21/22 Range/Units 23:19 23:19 23:19 WBC (4.5-11.0) K/mm3 RBC 5.76 H (3.65-5.03) M/mm3 Hgb 14.4 H (10.1-14.3) gm/dl Hct 44.9 H (30.3-42.9) % MCV 78 L (79-97) fl MCH 25 L (28-32) pg RDW 17.2 H (13.2-15.2) % Potassium 3.5 L (3.6-5.0) mmol/L Glucose 264 H (65-100) mg/dL POC Glucose (70-105) mg/dL Hemoglobin A1c 7.7 H (4-6) % Total Creatine Kinase 249 H (30-135) units/L CK-MB (CK-2) 18.5 H (0.0-4.0) ng/mL CK-MB (CK-2) Rel Index 7.4 H (0-4) Troponin T 0.211 H* (0.00-0.029) ng/mL Triglycerides 203 H (2-149) mg/dL Cholesterol 328 H (50-199) mg/dL LDL Cholesterol Direct 246 H (50-130) mg/dL 01/22/22 01/22/22 01/22/22 Range/Units 01:02 02:27 05:50 WBC (4.5-11.0) K/mm3 RBC (3.65-5.03) M/mm3 Hgb (10.1-14.3) gm/dl Hct (30.3-42.9) % MCV (79-97) fl MCH (28-32) pg RDW (13.2-15.2) % Potassium (3.6-5.0) mmol/L Glucose (65-100) mg/dL POC Glucose 213 H 244 H (70-105) mg/dL Hemoglobin A1c (4-6) % Total Creatine Kinase 54532 H (30-135) units/L CK-MB (CK-2) 300.0 H (0.0-4.0) ng/mL CK-MB (CK-2) Rel Index (0-4) Troponin T 71.610 H* (0.00-0.029) ng/mL Triglycerides (2-149) mg/dL Cholesterol (50-199) mg/dL LDL Cholesterol Direct (50-130) mg/dL 01/22/22 01/22/22 01/22/22 Range/Units 10:10 10:10 10:10 WBC 11.1 H (4.5-11.0) K/mm3 RBC (3.65-5.03) M/mm3 Hgb (10.1-14.3) gm/dl Hct (30.3-42.9) % MCV 78 L (79-97) fl MCH 25 L (28-32) pg RDW 17.2 H (13.2-15.2) % Potassium (3.6-5.0) mmol/L Glucose 293 H (65-100) mg/dL POC Glucose (70-105) mg/dL Hemoglobin A1c (4-6) % Total Creatine Kinase 8640 H (30-135) units/L CK-MB (CK-2) > 600.0 H (0.0-4.0) ng/mL CK-MB (CK-2) Rel Index 6.9 H (0-4) Troponin T 18.270 H* D (0.00-0.029) ng/mL Triglycerides (2-149) mg/dL Cholesterol (50-199) mg/dL LDL Cholesterol Direct (50-130) mg/dL - Imaging and Cardiology Chest x-ray: image reviewed (pulmonary edema) Assessment and Plan 66 y/o female with STEMI 1. Wean Nitro drip to off 2. Monitor for chest pain, serial EKG's if needed 3. BP control 4. Follow up Echo report
--- NOTE | 2022-01-22 13:15 | Cat Scan Report ---
CT head without contrast INDICATION : ams. TECHNIQUE: Axial imaging performed from the skull apex through the skull base without the use of con trast. All CT scans at this location are performed using CT dose reduction for ALARA by means of aut omated exposure control. COMPARISON: None FINDINGS: Parenchyma: No mass, stroke or hemorrhage. Ventricles: Ventricles are normal in size and appear symmetric. Soft tissues: Soft tissues including the orbits appear normal. Bones: No acute osseous abnormality. Sinuses: Sinuses and mastoid air cells are clear. IMPRESSION: No acute abnormality. Signer Name: Jose Maddox MD Signed: 01/22/2022 1:11 PM Workstation Name: [id number]
[2022-01-22] MEDS: INSULIN GLARGINE 100 UNITS/ML SUB-Q SCH (13:30)
--- NOTE | 2022-01-22 15:26 | Progress Note ---
Assessment and Plan Assessment and plan: This is a 66-year-old female with HTN, DM admitted with a STEMI Neuro: Acute metabolic encephalopathy secondary to hypotension vs medication induced -Patient had an acute change in mental status and was taken for a stat CT head -CT head negative for acute changes -Reorientation as needed -Maintain sleep-wake cycle -As needed analgesia Cardiac: STEMI -Cardiology consulted, appreciate recommendations -s/p PCI with stent to LAD (100% occlusion) -ACEi, BB, Plavix, lipitor -Heparin subq -Blood pressure monitoring per protocol -Echocardiogram pending -Nitro paste -Trend Tropnin (admit 0.211, 0227 71.6, 1010 18.2) Respiratory: Acute hypoxic respiratory failure (resolved) -Currently on room air -Supplemental oxygen as needed -SPO2 monitor per protocol -Pulmonary hygiene GI: NAD -CC cardiac diet -PPI -BR: colace : Hypokalemia (resolved) -Monitor intake and output -Renally dose medications -Avoid nephrotoxic medications -Trend BMP ID: NAD -Monitor WBC and temperature curve Endo: h/o DM -Hbg A1C 7.7 -SSI -Accu-Cheks ACHS -Long-acting insulin, titrate as needed -Avoid hypoglycemia Heme: Leukocytosis -Trend CBC -Transfuse hemoglobin less than 7 -SCDs to BLE while in bed The high probability of a clinically significant, sudden or life threatening deterioration of the [cardio] system(s) required my full and direct attention, intervention and personal management. The aggregate critical care time was [60] minutes. This time is in addition to time spent performing reported procedures but includes the following: [x] Data Review and interpretation [x] Patient assessment and monitoring of vital signs [x] Documentation [x] Medication orders and management Disposition Plan: icu Total Time Spent with Patient (Minutes): 60 History Interval history: This is this is a 66-year-old female with HTN, DM who presented to the emergency department on 01/21 for severe chest pain rated 10/10 on the left side for the past hour prior to arrival. In the emergency department patient ECG was consi stent with STEMI and patient was hypotensive, initial troponin was 0.211. Patient received Plavix and aspirin and she was initiated on nitroglycerin drip. Cardiology was consulted and was taken emergently to the [facility] for cardiac cath by Dr. Durbin. Patient was admitted to the hospitalist service with consults to cardiology for STEMI with consult to [facility] Hospital course to date: 01/22: Patient was on nitroglycerin drip and due to hypotension blood pressure medications were adjusted. After nitroglycerin drip was increased patient became hypotensive and exhibited altered mental status with orientation to self only. Prior to this patient was having in conversation with staff. Patient was taken for a stat CT head which was negative. Dr. Durbin was updated. Aggrastat discontinued. Patient placed on heparin subcu and placed back on lisinopril. She will continue FIONA, beta-mac, Plavix and Lipitor. Hospitalist Physical - Constitutional Vitals: Temp Pulse Resp BP Pulse Ox 98.8 F 91 H 21 150/99 94 01/22/22 12:00 01/22/22 15:00 01/22/22 15:00 01/22/22 15:00 01/22/22 15:00 General appearance: Present: no acute distress, obese - EENT Eyes: Present: PERRL, EOM intact ENT: hearing intact, clear oral mucosa, dentition normal - Neck Neck: Present: normal ROM - Respiratory Respiratory effort: normal Respiratory: bilateral: CTA, diminished - Cardiovascular Rhythm: regular Heart Sounds: Present: S1 & S2. Absent: systolic murmur, diastolic murmur - Extremities Extremities: no ischemia, pulses intact, pulses symmetrical, No edema, normal temperature, normal color, Full ROM Peripheral Pulses: within normal limits - Abdominal General gastrointestinal: soft, non-tender, non-distended, normal bowel sounds - Integumentary Integumentary: Present: warm, dry - Psychiatric Psychiatric: cooperative - Neurologic Neurologic: CNII-XII intact, no focal deficits, moves all extremities - Allied Health Allied health notes reviewed: nursing, RT HEART Score - HEART Score EKG: Significant ST-depression Age: 45-65 Risk factors: 1-2 risk factors Troponin: Troponin T 18.270 ng/mL (0.00-0.029) H* D 01/22/22 10:10 Troponin: > 3x normal limit - Critical Actions Critical Actions: >7 pts:50-65% risk of adverse cardiac event. Early invasive measures Results - Labs CBC & Chem 7: 01/22/22 10:10 01/22/22 10:10 Labs: Laboratory Last Values WBC 11.1 K/mm3 (4.5-11.0) H 01/22/22 10:10 RBC 4.88 M/mm3 (3.65-5.03) 01/22/22 10:10 Hgb 12.2 gm/dl (10.1-14.3) 01/22/22 10:10 Hct 38.0 % (30.3-42.9) D 01/22/22 10:10 MCV 78 fl (79-97) L 01/22/22 10:10 MCH 25 pg (28-32) L 01/22/22 10:10 MCHC 32 % (30-34) 01/22/22 10:10 RDW 17.2 % (13.2-15.2) H 01/22/22 10:10 Plt Count 277 K/mm3 (140-440) 01/22/22 10:10 Lymph % (Auto) 31.1 % (13.4-35.0) 01/21/22 23:19 [place] % (Auto) 4.7 % (0.0-7.3) 01/21/22 23:19 Eos % (Auto) 1.7 % (0.0-4.3) 01/21/22 23:19 Baso % (Auto) 1.3 % (0.0-1.8) 01/21/22 23:19 Lymph # (Auto) 2.6 K/mm3 (1.2-5.4) 01/21/22 23:19 Labette # (Auto) 0.4 K/mm3 (0.0-0.8) 01/21/22 23:19 Eos # (Auto) 0.1 K/mm3 (0.0-0.4) 01/21/22 23:19 Baso # (Auto) 0.1 K/mm3 (0.0-0.1) 01/21/22 23:19 Seg Neutrophils % 61.2 % (40.0-70.0) 01/21/22 23:19 Seg Neutrophils # 5.1 K/mm3 (1.8-7.7) 01/21/22 23:19 PT 13.4 Sec. (12.2-14.9) 01/21/22 23:19 INR 0.92 (0.87-1.13) 01/21/22 23:19 APTT 27.5 Sec. (24.2-36.6) 01/21/22 23:19 Sodium 140 mmol/L (137-145) 01/22/22 10:10 Potassium 5.0 mmol/L (3.6-5.0) D 01/22/22 10:10 Chloride 103.1 mmol/L (98-107) 01/22/22 10:10 Carbon Dioxide 22 mmol/L (22-30) 01/22/22 10:10 Anion Gap 20 mmol/L 01/22/22 10:10 BUN 13 mg/dL (7-17) 01/22/22 10:10 Creatinine 0.9 mg/dL (0.6-1.2) 01/22/22 10:10 Estimated GFR > 60 ml/min 01/22/22 10:10 BUN/Creatinine Ratio 14 % 01/22/22 10:10 Glucose 293 mg/dL (65-100) H 01/22/22 10:10 POC Glucose 277 mg/dL (70-105) H 01/22/22 12:34 Hemoglobin A1c 7.7 % (4-6) H 01/21/22 23:19 Calcium 8.9 mg/dL (8.4-10.2) 01/22/22 10:10 Phosphorus 3.70 mg/dL (2.5-4.5) 01/22/22 10:10 Magnesium 1.90 mg/dL (1.7-2.3) 01/22/22 10:10 Total Bilirubin 0.20 mg/dL (0.1-1.2) 01/21/22 23:19 AST 24 units/L (5-40) 01/21/22 23:19 ALT 15 units/L (7-56) 01/21/22 23:19 Alkaline Phosphatase 129 units/L (35-129) 01/21/22 23:19 Total Creatine Kinase 8640 units/L (30-135) H 01/22/22 10:10 CK-MB (CK-2) > 600.0 ng/mL (0.0-4.0) H 01/22/22 10:10 CK-MB (CK-2) Rel Index 6.9 (0-4) H 01/22/22 10:10 Troponin T 18.270 ng/mL (0.00-0.029) H* D 01/22/22 10:10 Total Protein 8.1 g/dL (6.3-8.2) 01/21/22 23:19 Albumin 4.7 g/dL (3.9-5) 01/21/22 23:19 Albumin/Globulin Ratio 1.4 % 01/21/22 23:19 Triglycerides 203 mg/dL (2-149) H 01/21/22 23:19 Cholesterol 328 mg/dL (50-199) H 01/21/22 23:19 LDL Cholesterol Direct 246 mg/dL (50-130) H 01/21/22 23:19 HDL Cholesterol 47 mg/dL (40-59) 01/21/22 23:19 Cholesterol/HDL Ratio 6.97 % 01/21/22 23:19 Blood Type O POSITIVE 01/21/22 23:19 Antibody Screen Negative 01/21/22 23:19 Alvarez/IV: Voiding Method Bedside Commode Active Medications - Current Medications Current Medications: Generic Name Dose Route Start Last Admin Trade Name Freq PRN Reason Stop Dose Admin Acetaminophen 650 mg 01/21/22 23:35 Acetaminophen 325 Mg Tab PO Q6H PRN Pain, Mild (1-3) Aspirin 81 mg 01/22/22 10:00 01/22/22 09:07 Aspirin Ec 81 Mg Tab PO 81 mg QDAY IVETTE Administration Atorvastatin Calcium 40 mg 01/22/22 22:00 Atorvastatin 40 Mg Tab PO QHS IVETTE Clopidogrel Bisulfate 75 mg 01/22/22 10:00 01/22/22 09:07 Clopidogrel 75 Mg Tab PO 75 mg QDAY IVETTE Administration Dextrose 50 ml 01/21/22 23:35 Dextrose 50% In Water (25gm) 50 Ml Syringe IV Q30MIN PRN Hypoglycemia Protocol Docusate Sodium 100 mg 01/22/22 22:00 Docusate Sodium 100 Mg Cap PO BID IVETTE Heparin Sodium (Porcine) 5,000 unit 01/22/22 22:00 Heparin 5,000 Unit/1 Ml Vial SUB-Q Q8HR IVETTE Sodium Chloride 500 mls @ 50 mls/hr 01/21/22 23:45 Nacl 0.9% 500 Ml IV DIRECT IVETTE Nitroglycerin/Dextrose 50 mg in 250 mls @ 3 mls/hr 01/21/22 23:45 01/22/22 12:09 Tridil Drip 50mg/250ml IV 0 mcg/min TITR IVETTE 0 mls/hr Titration Protocol 10 MCG/MIN Insulin Glargine 10 units 01/22/22 11:30 01/22/22 13:30 Insulin Glargine 100 Units/Ml SUB-Q 10 units QAMDIAB IVETTE Administration Insulin Human Lispro 0 unit 01/22/22 11:30 01/22/22 13:30 Insulin Lispro 100 Unit/Ml SUB-Q 4 unit ACHS IVETTE Administration Protocol Lisinopril 5 mg 01/23/22 10:00 Lisinopril 5 Mg Tab PO QDAY IVETTE Metoprolol Tartrate 50 mg 01/22/22 01:00 01/22/22 09:07 Metoprolol Tartrate 50 Mg Tab PO 50 mg BID IVETTE Administration Morphine Sulfate 2 mg 01/21/22 23:35 Morphine 4 Mg/1 Ml Inj IV Q5MIN PRN Chest Pain unrelieved by NTG Nitroglycerin 0.4 mg 01/21/22 23:35 01/22/22 09:16 Nitroglycerin 0.4 Mg Tab Subl SL 0.4 mg Q5M PRN Administration Chest Pain Ondansetron HCl 4 mg 01/22/22 10:02 01/22/22 10:18 Ondansetron 4 Mg/2 Ml Inj IV 4 mg Q4H PRN Administration Nausea And Vomiting Pantoprazole Sodium 40 mg 01/22/22 10:00 01/22/22 09:07 Pantoprazole 40 Mg Tab PO 40 mg QDAY IVETTE Administration Sodium Chloride 10 ml 01/21/22 23:35 Sodium Chloride 0.9% 10 Ml Flush Syringe IV PRN PRN LINE FLUSH Tramadol HCl 50 mg 01/21/22 23:35 Tramadol 50 Mg Tab PO Q6H PRN Pain, Moderate (4-6) Nutrition/Malnutrition Assess - Dietary Evaluation Nutrition/Malnutrition Findings: Nutrition Notes Start: 01/22/22 09:19 Freq: Status: Active Protocol: Document 01/22/22 09:19 TW (Rec: 01/22/22 10:04 TW [id number]) Nutrition Notes 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 Pt has chest pain/Acute SC. Not able to assess PO intake at this time. Burn Absent Trauma Absent GI Symptoms Nausea Minimum of two criteria No Is patient on ventilator? No Is Patient Ambulatory and/or Out of Bed No REE-([facility]-confined to bed) 5813.983 Nutrition Intervention Change Diet Order: Continue current diet Follow-Up By: 01/23/22 Additional Comments F/U for intakes
--- NOTE | 2022-01-22 15:46 | Progress Note ---
Assessment and Plan - Patient Problems (1) STEMI (ST elevation myocardial infarction) Current Visit: Yes Status: Acute Plan to address problem: Patient is status post successful primary angioplasty and stenting of the LAD following an acute anterolateral STEMI. Continue guideline directed medical therapy. Echo pending for left ventricular function and valvular function assessment. Subjective Date of service: 01/22/22 Principal diagnosis: Acute STEMI Interval history: Patient is awake and alert, but appears mildly disoriented this morning. A head CT was ordered by the medical service, and reported negative. Patient has no chest pain, remains in stable sinus rhythm hemodynamically stable. On exam there are no murmurs. ECG shows a reduced magnitude of ST elevation, and is consistent with evolution of the anterolateral infarct. Objective Vital Signs Temp Pulse Pulse Resp BP Pulse Ox 01/22/22 15:00 91 H 21 150/99 94 01/22/22 14:45 100 H 22 132/82 95 01/22/22 14:30 92 H 24 136/94 93 01/22/22 14:24 94 H 23 125/83 94 01/22/22 14:22 91 H 25 H 125/83 95 01/22/22 14:20 89 22 125/83 97 01/22/22 14:18 90 19 125/83 95 01/22/22 14:16 80 20 125/83 94 01/22/22 14:15 85 20 125/83 94 01/22/22 14:14 85 20 123/81 94 01/22/22 14:12 93 H 18 123/81 93 01/22/22 14:10 87 23 123/81 95 01/22/22 14:08 82 22 123/81 95 01/22/22 14:06 90 22 123/81 93 01/22/22 14:04 88 23 123/81 96 01/22/22 14:02 94 H 27 H 123/81 94 01/22/22 14:00 79 19 123/81 94 01/22/22 13:58 83 19 136/92 95 01/22/22 13:56 80 20 136/92 95 01/22/22 13:54 87 22 136/92 93 01/22/22 13:52 96 H 30 H 136/92 95 01/22/22 13:50 85 20 136/92 94 01/22/22 13:48 81 22 136/92 93 01/22/22 13:46 77 23 136/92 96 01/22/22 13:45 85 22 136/92 93 01/22/22 13:44 81 22 124/84 96 01/22/22 13:42 84 24 124/84 95 01/22/22 13:40 90 22 138/93 96 01/22/22 13:38 90 26 H 138/93 96 01/22/22 13:36 92 H 26 H 138/93 95 01/22/22 13:34 98 H 24 138/93 95 01/22/22 13:32 92 H 26 H 138/93 95 01/22/22 13:30 92 H 19 138/93 95 01/22/22 13:28 83 22 137/92 95 01/22/22 13:26 79 21 137/92 94 01/22/22 13:24 81 22 137/92 95 01/22/22 13:22 87 21 137/92 94 01/22/22 13:20 94 H 23 137/92 93 01/22/22 13:18 85 20 137/92 95 01/22/22 13:16 85 21 137/92 96 01/22/22 13:15 84 22 137/92 93 01/22/22 13:14 88 21 139/95 93 01/22/22 13:12 88 22 139/95 95 01/22/22 13:10 92 H 26 H 139/95 96 01/22/22 13:08 90 28 H 139/95 97 01/22/22 13:06 94 H 139/95 01/22/22 13:04 139/95 96 01/22/22 12:45 87 21 124/84 95 01/22/22 12:44 88 25 H 107/75 94 01/22/22 12:42 81 24 107/75 95 01/22/22 12:40 82 23 107/75 96 01/22/22 12:38 88 27 H 107/75 95 01/22/22 12:36 88 23 107/75 95 01/22/22 12:34 78 23 89/59 95 01/22/22 12:32 72 22 89/59 95 01/22/22 12:30 73 23 89/59 95 01/22/22 12:28 72 22 80/50 94 01/22/22 12:26 72 24 80/50 95 01/22/22 12:24 73 24 80/50 94 01/22/22 12:22 73 22 80/50 95 01/22/22 12:20 73 23 80/50 94 01/22/22 12:18 70 20 80/50 96 01/22/22 12:16 72 25 H 80/50 95 01/22/22 12:14 73 25 H 80/50 95 01/22/22 12:12 69 24 75/45 95 01/22/22 12:10 67 21 75/45 94 01/22/22 12:08 71 16 75/45 95 01/22/22 12:06 70 20 84/51 95 01/22/22 12:04 71 21 84/51 95 01/22/22 12:03 71 20 79/49 95 01/22/22 12:02 79 23 97/60 94 01/22/22 12:00 98.8 F 76 69 19 97/60 93 01/22/22 11:58 80 19 135/87 94 01/22/22 11:56 78 20 135/87 96 01/22/22 11:54 81 20 135/87 94 01/22/22 11:52 77 20 135/87 95 01/22/22 11:50 82 20 135/87 95 01/22/22 11:45 86 21 135/87 93 01/22/22 11:30 93 H 16 153/99 94 01/22/22 11:15 93 H 22 165/110 94 01/22/22 11:00 88 17 143/98 96 01/22/22 10:45 84 18 141/94 98 01/22/22 10:30 86 20 146/100 97 01/22/22 10:15 94 H 23 148/87 94 01/22/22 10:00 100 H 26 H 139/84 93 01/22/22 09:45 93 H 24 127/90 96 01/22/22 09:30 91 H 21 123/85 95 01/22/22 09:16 94 H 17 137/92 96 01/22/22 09:07 92 H 137/92 01/22/22 09:06 95 H 137/92 01/22/22 09:00 87 19 137/92 96 01/22/22 08:48 97 01/22/22 08:45 89 19 148/100 96 01/22/22 08:30 98 H 18 158/104 96 01/22/22 08:15 91 H 18 168/111 96 01/22/22 08:00 97.6 F 92 H 94 H 17 166/111 96 01/22/22 07:45 102 H 18 144/105 95 01/22/22 07:30 95 H 20 144/104 97 01/22/22 07:17 92 H 01/22/22 07:10 92 H 17 142/101 98 01/22/22 07:00 92 H 16 142/101 96 01/22/22 06:50 94 H 19 145/101 99 01/22/22 06:43 97 H 16 97 01/22/22 06:30 101 H 16 144/102 94 01/22/22 06:21 114 H 19 151/106 96 01/22/22 06:11 113 H 25 H 151/106 96 01/22/22 06:00 100 H 17 151/106 01/22/22 05:51 103 H 19 148/107 98 01/22/22 05:41 103 H 19 146/99 99 01/22/22 05:30 101 H 20 146/99 96 01/22/22 05:21 99 H 18 142/105 98 01/22/22 05:11 98 H 18 144/105 98 01/22/22 05:00 96 H 17 144/105 98 01/22/22 04:51 96 H 19 148/106 99 01/22/22 04:41 98 H 19 146/101 96 01/22/22 04:30 101 H 20 146/101 96 01/22/22 04:21 103 H 18 153/110 98 01/22/22 04:11 107 H 17 144/97 96 01/22/22 04:00 98 F 88 79 20 141/99 94 01/22/22 03:51 94 H 18 142/98 97 01/22/22 03:41 97 H 19 144/97 99 01/22/22 03:30 88 17 144/97 01/22/22 03:21 91 H 19 149/103 97 01/22/22 03:11 99 H 18 147/101 97 01/22/22 03:00 90 18 147/101 01/22/22 02:51 87 18 149/103 97 01/22/22 02:41 93 H 20 147/99 98 01/22/22 02:30 89 16 147/99 01/22/22 02:24 94 H 150/101 01/22/22 02:21 93 H 21 150/101 95 01/22/22 02:11 90 20 150/102 97 01/22/22 02:00 93 H 18 150/102 95 01/22/22 01:51 95 H 19 155/107 95 01/22/22 01:41 99 H 17 153/105 94 01/22/22 01:30 92 H 15 153/105 01/22/22 01:21 91 H 19 155/104 93 01/22/22 01:11 94 H 18 92 01/22/22 01:05 97.5 F L 94 H 20 94 01/22/22 01:00 100 H 17 145/98 88 01/22/22 00:58 100 H 01/21/22 22:56 99.1 F 113 H 24 228/150 94 - Physical Examination General: No Apparent Distress, Other (Mild disorientation) HEENT: Positive: PERRL Neck: Positive: neck supple Cardiac: Positive: Reg Rate and Rhythm Lungs: Positive: clear to auscultation Neuro: Positive: Grossly Intact Abdomen: Positive: Soft Skin: Positive: Clear Extremities: Absent: edema - Labs and Meds Cardiac Enzymes 01/21/22 01/22/22 01/22/22 Range/Units 23:19 02:27 10:10 AST 24 (5-40) units/L CK-MB (CK-2) 18.5 H 300.0 H > 600.0 H (0.0-4.0) ng/mL Coagulation 01/21/22 Range/Units 23:19 PT 13.4 (12.2-14.9) Sec. INR 0.92 (0.87-1.13) APTT 27.5 (24.2-36.6) Sec. Lipids 01/21/22 Range/Units 23:19 Triglycerides 203 H (2-149) mg/dL Cholesterol 328 H (50-199) mg/dL HDL Cholesterol 47 (40-59) mg/dL Cholesterol/HDL Ratio 6.97 % CBC 01/21/22 01/22/22 Range/Units 23:19 10:10 WBC 8.2 11.1 H (4.5-11.0) K/mm3 RBC 5.76 H 4.88 (3.65-5.03) M/mm3 Hgb 14.4 H 12.2 (10.1-14.3) gm/dl Hct 44.9 H 38.0 D (30.3-42.9) % Plt Count 296 277 (140-440) K/mm3 Lymph # (Auto) 2.6 (1.2-5.4) K/mm3 Beckham # (Auto) 0.4 (0.0-0.8) K/mm3 Eos # (Auto) 0.1 (0.0-0.4) K/mm3 Baso # (Auto) 0.1 (0.0-0.1) K/mm3 Comprehensive Metabolic Panel 01/21/22 01/22/22 Range/Units 23:19 10:10 Sodium 140 140 (137-145) mmol/L Potassium 3.5 L 5.0 D (3.6-5.0) mmol/L Chloride 100.3 103.1 (98-107) mmol/L Carbon Dioxide 25 22 (22-30) mmol/L BUN 12 13 (7-17) mg/dL Creatinine 0.7 0.9 (0.6-1.2) mg/dL Glucose 264 H 293 H (65-100) mg/dL Calcium 9.8 8.9 (8.4-10.2) mg/dL AST 24 (5-40) units/L ALT 15 (7-56) units/L Alkaline Phosphatase 129 (35-129) units/L Total Protein 8.1 (6.3-8.2) g/dL Albumin 4.7 (3.9-5) g/dL
[2022-01-22] MEDS ORDERED: hydrALAZINE 20 MG/1 ML INJ IV PRN (17:08)
--- NOTE | 2022-01-22 18:36 | Cat Scan Report ---
CT HEAD WITHOUT CONTRAST, 01/22/2022 1807 hours Eastern standard time INDICATION / CLINICAL INFORMATION: AMS. TECHNIQUE: All CT scans at this location are performed using CT dose reduction for ALARA by means of automated e xposure control. COMPARISON: Head CT 01/22/2022 1252 hours Eastern standard time FINDINGS: HEMORRHAGE: No evidence of intracranial hemorrhage or extra-axial fluid collection. EXTRA-AXIAL SPACES: Cortical sulci, sylvian fissures and basilar cisterns have an unremarkable appear ance. VENTRICULAR SYSTEM: The third and lateral ventricles are of normal size and configuration. CEREBRAL PARENCHYMA: No areas of abnormal brain parenchymal attenuation are identified. There is no i ndication of recent infarction. MIDLINE SHIFT OR HERNIATION: There is no mass effect. CEREBELLUM / BRAINSTEM: Brainstem and cerebellum have an unremarkable appearance. MIDLINE STRUCTURES:No abnormalities of the pituitary gland or pineal region are identified. INTRACRANIAL VESSELS:No abnormalities are identified on this noncontrast head CT. ORBITS: visualized portions of the orbits have an unremarkable appearance. SOFT TISSUES of HEAD: No significant abnormality. CALVARIUM: Evaluation of bone windows reveals no abnormalities. PARANASAL SINUSES / MASTOID AIR CELLS: Visualized portions of the paranasal sinuses are free from inf lammatory mucosal disease. Mastoid air cells are normally pneumatized. ADDITIONAL FINDINGS: None. IMPRESSION: 1. No significant intracranial abnormality. No interval change since recent previous study 01/22/2022 1252 hours. Signer Name: Garo Reeder MD Signed: 01/22/2022 6:32 PM Workstation Name: [id number]
[2022-01-22] MEDS: MORPHINE 4 MG/1 ML INJ IV PRN (19:55)
[2022-01-22] MEDS: HEPARIN 5,000 UNIT/1 ML VIAL SUB-Q SCH (21:21)
[2022-01-22 21:24] LABS: Hematocrit 39.8 % (30.3-42.9); Hemoglobin 12.8 gm/dl (10.1-14.3); Mean Corpuscular HGB Conc 32 % (30-34); Mean Corpuscular Volume 77 fl (79-97); Platelet Count 251 K/mm3 (140-440); Red Blood Count 5.17 M/mm3 (3.65-5.03); Red Cell Distribution Width 17.5 % (13.2-15.2)
[2022-01-22 21:40] LABS: Alanine Aminotransferase 119 units/L (7-56); Albumin 3.9 g/dL (3.9-5); BUN/Creatinine Ratio 23; Blood Urea Nitrogen 18 mg/dL (7-17); Calcium 9.3 mg/dL (8.4-10.2); Hemolysis Index 10
[2022-01-22] MEDS ORDERED: DOCUSATE SODIUM 100 MG CAP PO SCH (22:00)
[2022-01-22 23:56] LABS: Color,Urine Yellow (Yellow)
[2022-01-23] LABS: Bacteria,Urine 2+ /HPF (Negative); Ictotest,Urine Negative (Negative); Mucus,Urine FEW /HPF; RBC,Urine < 1.0 /HPF (0.0-6.0)
[2022-01-23] MEDS: MORPHINE 4 MG/1 ML INJ IV PRN (01:05)
--- NOTE | 2022-01-23 03:16 | XRay Report ---
Chest single view INDICATION: Dyspnea IMPRESSION: Severe progression of bilateral airspace disease/edema when compared to 01/21/2022. Signer Name: Varun Dunbar MD Signed: 01/23/2022 3:11 AM Workstation Name: [email or web address]
[2022-01-23 04:54] LABS: Basophils # (Auto) 0.1 K/mm3 (0.0-0.1); Basophils % (Auto) 0.5 % (0.0-1.8); Eosinophils % (Auto) 0.1 % (0.0-4.3); Hematocrit 40.5 % (30.3-42.9); Lymphocytes % (Auto) 12.5 % (13.4-35.0); Mean Corpuscular HGB Conc 32 % (30-34); Mean Corpuscular Volume 77 fl (79-97); Monocytes # (Auto) 1.1 K/mm3 (0.0-0.8); Monocytes % (Auto) 6.8 % (0.0-7.3); Platelet Count 238 K/mm3 (140-440); Red Blood Count 5.27 M/mm3 (3.65-5.03); Red Cell Distribution Width 17.2 % (13.2-15.2)
[2022-01-23 05:17] LABS: BUN/Creatinine Ratio 29; Blood Urea Nitrogen 26 mg/dL (7-17); Calcium 9.2 mg/dL (8.4-10.2); Hemolysis Index 85
[2022-01-23] MEDS: HEPARIN 5,000 UNIT/1 ML VIAL SUB-Q SCH ×2 (05:54→15:47)
[2022-01-23] MEDS: INSULIN GLARGINE 100 UNITS/ML SUB-Q SCH (08:37)
[2022-01-23] MEDS ORDERED: SODIUM CHLORIDE 0.9% 1000 ML 1,000 ML ONE (08:49)
[2022-01-23] MEDS ORDERED: AZITHROMYCIN/NS 500 MG/250 ML 500 MG/250 ML BAG IV SCH ×3 (09:00→18:00)
[2022-01-23] MEDS: ASPIRIN EC 81 MG TAB PO SCH ×2 (09:57→23:09)
[2022-01-23] MEDS: CLOPIDOGREL 75 MG TAB PO SCH (09:57)
--- NOTE | 2022-01-23 09:58 | Electrocardiograph Report ---
[facility] Test Date: 2022-01-22 Test Time: 10:37:21 Pat Name: MIRZA DOZIER Department: Room: A256 1 Gender: F Blocklayer: ELO : 1955 Requested By: AJ SELF Order Number: [id number] Reading MD: Long Holguin Measurements Intervals [place] Rate: 92 P: 51 GA: 123 QRS: 67 QRSD: 70 T: 78 QT: 337 QTc: 419 Interpretive Statements Sinus rhythm Probable anterolateral infarct, acute Compared to ECG 01/22/2022 01:23:54 Ventricular premature complex(es) no longer present Myocardial infarct finding still present Electronically Signed On 01-23-2022 9:58:05 EDT by Long Holguin
[2022-01-23] MEDS: cefTRIAXone/NS 2 GM/100 ML 2 GM/100 ML BAG IV SCH (09:59)
[2022-01-23] MEDS ORDERED: LISINOPRIL 5 MG TAB PO SCH (10:00)
[2022-01-23] MEDS ORDERED: NIFEdipine XL 60 MG TAB PO SCH (10:00)
[2022-01-23] MEDS: HALOPERIDOL LACTATE 5 MG/1 ML INJ IV PRN ×2 (10:36→18:29)
[2022-01-23] MEDS: INSULIN LISPRO 100 UNIT/ML SUB-Q SCH ×4 (10:44→22:12)
--- NOTE | 2022-01-23 10:57 | Progress Note ---
Assessment and Plan 66 y/o female with STEMI 01/23/22: MRI. Will speak with Cards about starting dobutamine as pressure is too soft for diuresis right now and needs volume removal. Still not sure why mental status has changed. Agree with abx therapy. Could be delirious. If MRI negative, may place on scheduled haldol. Attempt to get sleep wake cycle back together as well. 1. Wean Nitro drip to off 2. Monitor for chest pain, serial EKG's if needed 3. BP control 4. Follow up Echo report Subjective Date of service: 01/23/22 Principal diagnosis: Acute STEMI Interval history: Remains altered. Off nitro and blood pressure is better. EF is 25% and patient has gotten fluids over the last 24 hours, now volume overloaded. Requiring oxygen with nasal cannula. UA negative. Repeat head CT last night again was negative. Objective - Constitutional Vitals: Vital Signs - 12hr 01/22/22 01/22/22 01/22/22 23:00 23:04 23:30 Temperature Pulse Rate 97 H 96 H 93 H Pulse Rate [ From Monitor] Respiratory 24 24 24 Rate Blood Pressure 138/88 138/88 144/85 O2 Sat by Pulse 97 97 96 Oximetry 01/23/22 01/23/22 01/23/22 00:00 00:30 01:00 Temperature 98.8 F Pulse Rate 92 H 111 H 126 H Pulse Rate [ 92 H From Monitor] Respiratory 20 37 H 39 H Rate Blood Pressure 132/88 140/94 169/102 O2 Sat by Pulse 96 89 69 L Oximetry 01/23/22 01/23/22 01/23/22 01:05 01:30 01:35 Temperature Pulse Rate 120 H Pulse Rate [ From Monitor] Respiratory 24 38 H 22 Rate Blood Pressure 177/128 O2 Sat by Pulse 96 89 Oximetry 01/23/22 01/23/22 01/23/22 02:00 02:30 03:00 Temperature Pulse Rate 113 H 101 H 96 H Pulse Rate [ From Monitor] Respiratory 30 H 25 H 25 H Rate Blood Pressure 169/109 169/109 141/87 O2 Sat by Pulse 92 95 97 Oximetry 01/23/22 01/23/22 01/23/22 03:30 04:00 04:30 Temperature 99 F Pulse Rate 91 H 87 126 H Pulse Rate [ 87 From Monitor] Respiratory 25 H 24 37 H Rate Blood Pressure 114/74 105/71 105/71 O2 Sat by Pulse 97 98 79 L Oximetry 01/23/22 01/23/22 01/23/22 05:00 05:30 06:00 Temperature Pulse Rate 88 83 83 Pulse Rate [ From Monitor] Respiratory 23 24 25 H Rate Blood Pressure 101/68 93/61 98/65 O2 Sat by Pulse 95 97 97 Oximetry 01/23/22 01/23/22 01/23/22 06:30 07:00 07:14 Temperature 99.0 F Pulse Rate 81 82 Pulse Rate [ From Monitor] Respiratory 24 28 H Rate Blood Pressure 101/68 92/55 O2 Sat by Pulse 99 99 Oximetry 01/23/22 01/23/22 01/23/22 07:30 07:44 08:00 Temperature Pulse Rate 115 H 82 Pulse Rate [ 93 H From Monitor] Respiratory 38 H 24 26 H Rate Blood Pressure 92/55 91/52 O2 Sat by Pulse 87 93 96 Oximetry 01/23/22 01/23/22 01/23/22 08:30 09:00 09:30 Temperature Pulse Rate 80 82 111 H Pulse Rate [ From Monitor] Respiratory 29 H 19 37 H Rate Blood Pressure 89/43 96/60 96/60 O2 Sat by Pulse 98 99 94 Oximetry 01/23/22 01/23/22 10:00 10:30 Temperature Pulse Rate 105 H 119 H Pulse Rate [ From Monitor] Respiratory 34 H 48 H Rate Blood Pressure 148/89 145/97 O2 Sat by Pulse 79 L 88 Oximetry - Labs CBC & Chem 7: 01/23/22 04:14 01/23/22 04:14 Labs: Abnormal lab results 01/22/22 01/22/22 01/22/22 Range/Units 10:10 10:10 12:34 WBC (4.5-11.0) K/mm3 RBC (3.65-5.03) M/mm3 MCV (79-97) fl MCH (28-32) pg RDW (13.2-15.2) % Lymph % (Auto) (13.4-35.0) % [place] # (Auto) (0.0-0.8) K/mm3 Seg Neutrophils % (40.0-70.0) % Seg Neutrophils # (1.8-7.7) K/mm3 Potassium (3.6-5.0) mmol/L Carbon Dioxide (22-30) mmol/L BUN (7-17) mg/dL Glucose 293 H (65-100) mg/dL POC Glucose 277 H (70-105) mg/dL AST (5-40) units/L ALT (7-56) units/L Total Creatine Kinase 8640 H (30-135) units/L CK-MB (CK-2) > 600.0 H (0.0-4.0) ng/mL CK-MB (CK-2) Rel Index 6.9 H (0-4) Troponin T 18.270 H* D (0.00-0.029) ng/mL 01/22/22 01/22/22 01/22/22 Range/Units 16:43 20:11 20:11 WBC 12.5 H (4.5-11.0) K/mm3 RBC 5.17 H (3.65-5.03) M/mm3 MCV 77 L (79-97) fl MCH 25 L (28-32) pg RDW 17.5 H (13.2-15.2) % Lymph % (Auto) (13.4-35.0) % [place] # (Auto) (0.0-0.8) K/mm3 Seg Neutrophils % (40.0-70.0) % Seg Neutrophils # (1.8-7.7) K/mm3 Potassium (3.6-5.0) mmol/L Carbon Dioxide 18 L (22-30) mmol/L BUN 18 H (7-17) mg/dL Glucose 191 H (65-100) mg/dL POC Glucose 188 H (70-105) mg/dL AST 351 H (5-40) units/L ALT 119 H (7-56) units/L Total Creatine Kinase (30-135) units/L CK-MB (CK-2) (0.0-4.0) ng/mL CK-MB (CK-2) Rel Index (0-4) Troponin T (0.00-0.029) ng/mL 01/22/22 01/23/22 01/23/22 Range/Units 21:37 04:14 04:14 WBC 16.0 H (4.5-11.0) K/mm3 RBC 5.27 H (3.65-5.03) M/mm3 MCV 77 L (79-97) fl MCH 25 L (28-32) pg RDW 17.2 H (13.2-15.2) % Lymph % (Auto) 12.5 L (13.4-35.0) % [place] # (Auto) 1.1 H (0.0-0.8) K/mm3 Seg Neutrophils % 80.1 H (40.0-70.0) % Seg Neutrophils # 12.8 H (1.8-7.7) K/mm3 Potassium 6.0 H D (3.6-5.0) mmol/L Carbon Dioxide 20 L (22-30) mmol/L BUN 26 H (7-17) mg/dL Glucose 156 H (65-100) mg/dL POC Glucose 206 H (70-105) mg/dL AST (5-40) units/L ALT (7-56) units/L Total Creatine Kinase (30-135) units/L CK-MB (CK-2) (0.0-4.0) ng/mL CK-MB (CK-2) Rel Index (0-4) Troponin T 8.010 H* D (0.00-0.029) ng/mL Medications & Allergies - Medications Allergies/Adverse Reactions: Allergies No Known Allergies Allergy (Verified 01/21/22 23:36) Active Medications: Generic Name Dose Route Start Last Admin Trade Name Freq PRN Reason Stop Dose Admin Acetaminophen 650 mg 01/21/22 23:35 Acetaminophen 325 Mg Tab PO Q6H PRN Pain, Mild (1-3) Aspirin 81 mg 01/22/22 10:00 01/23/22 09:57 Aspirin Ec 81 Mg Tab PO 81 mg QDAY IVETTE Administration Atorvastatin Calcium 40 mg 01/22/22 22:00 01/22/22 21:21 Atorvastatin 40 Mg Tab PO 40 mg QHS IVETTE Administration Clopidogrel Bisulfate 75 mg 01/22/22 10:00 01/23/22 09:57 Clopidogrel 75 Mg Tab PO 75 mg QDAY IVETTE Administration Dextrose 50 ml 01/21/22 23:35 Dextrose 50% In Water (25gm) 50 Ml Syringe IV Q30MIN PRN Hypoglycemia Protocol Docusate Sodium 100 mg 01/22/22 22:00 01/22/22 21:22 Docusate Sodium 100 Mg Cap PO 100 mg BID IVETTE Administration Haloperidol Lactate 5 mg 01/23/22 10:21 01/23/22 10:36 Haloperidol Lactate 5 Mg/1 Ml Inj IV 5 mg Q6HR PRN Administration Agitation Heparin Sodium (Porcine) 5,000 unit 01/22/22 22:00 01/23/22 05:54 Heparin 5,000 Unit/1 Ml Vial SUB-Q 5,000 unit Q8HR IVETTE Administration Hydralazine HCl 10 mg 01/22/22 17:08 01/22/22 17:19 Hydralazine 20 Mg/1 Ml Inj IV 10 mg Q4HR PRN Administration Hypertension Nitroglycerin/Dextrose 50 mg in 250 mls @ 3 mls/hr 01/21/22 23:45 01/22/22 12:09 Tridil Drip 50mg/250ml IV 0 mcg/min TITR IVETTE 0 mls/hr Titration Protocol 10 MCG/MIN Dexmedetomidine HCl 200 mcg/ 50 mls @ 3.856 mls/hr 01/23/22 01:09 01/23/22 08:57 Sodium Chloride IV 0 mcg/kg/hr TITRATE IVETTE 0 mls/hr Titration Protocol 0.2 MCG/KG/HR Ceftriaxone Sodium 2 gm in 100 mls @ 200 mls/hr 01/23/22 09:00 01/23/22 09:59 Rocephin/Ns 2 Gm/100 Ml IV 200 mls/hr Q24H IVETTE Administration Protocol Azithromycin 500 mg in 250 mls @ 250 mls/hr 01/23/22 09:00 01/23/22 09:59 Zithromax/Ns IV 250 mls/hr Q24H IVETTE Administration Dobutamine HCl/Dextrose 500 mg in 250 mls @ 11.567 mls/hr 01/23/22 11:00 Dobutrex Drip 500mg/D5w 250ml IV DIRECT IVETTE Protocol 5 MCG/KG/MIN Insulin Glargine 10 units 01/22/22 11:30 01/23/22 08:37 Insulin Glargine 100 Units/Ml SUB-Q 10 units QAMDIAB IVETTE Administration Insulin Human Lispro 0 unit 01/22/22 11:30 01/23/22 10:44 Insulin Lispro 100 Unit/Ml SUB-Q Not Given ACHS IVETTE Protocol Lisinopril 5 mg 01/23/22 10:00 Lisinopril 5 Mg Tab PO QDAY IVETTE Lorazepam 1 mg 01/23/22 10:21 Lorazepam 2 Mg/Ml Vial IV Q4HR PRN Agitation Metoprolol Tartrate 50 mg 01/22/22 01:00 01/22/22 21:21 Metoprolol Tartrate 50 Mg Tab PO 50 mg BID IVETTE Administration Morphine Sulfate 2 mg 01/21/22 23:35 01/23/22 01:05 Morphine 4 Mg/1 Ml Inj IV 2 mg Q5MIN PRN Administration Chest Pain unrelieved by NTG Nitroglycerin 0.4 mg 01/21/22 23:35 01/22/22 09:16 Nitroglycerin 0.4 Mg Tab Subl SL 0.4 mg Q5M PRN Administration Chest Pain Ondansetron HCl 4 mg 01/22/22 10:02 01/22/22 10:18 Ondansetron 4 Mg/2 Ml Inj IV 4 mg Q4H PRN Administration Nausea And Vomiting Pantoprazole Sodium 40 mg 01/22/22 10:00 01/22/22 09:07 Pantoprazole 40 Mg Tab PO 40 mg QDAY IVETTE Administration Sodium Chloride 10 ml 01/21/22 23:35 Sodium Chloride 0.9% 10 Ml Flush Syringe IV PRN PRN LINE FLUSH Tramadol HCl 50 mg 01/21/22 23:35 Tramadol 50 Mg Tab PO Q6H PRN Pain, Moderate (4-6) HEART Score - HEART Score EKG: Significant ST-depression Age: 45-65 Risk factors: 1-2 risk factors Troponin: Troponin T 8.010 ng/mL (0.00-0.029) H* D 01/23/22 04:14 Troponin: > 3x normal limit - Critical Actions Critical Actions: >7 pts:50-65% risk of adverse cardiac event. Early invasive measures
[2022-01-23] MEDS ORDERED: DOBUTamine/D5W 500 MG/250 ML 500 MG/250 ML BAG IV SCH (11:00)
[2022-01-23] MEDS: LORazepam 2 MG/ML VIAL IV PRN (11:29)
[2022-01-23] MEDS ORDERED: FUROSEMIDE 40 MG/4 ML INJ IV SCH ×2 (11:45→16:00)
--- NOTE | 2022-01-23 12:53 | Progress Note ---
Assessment and Plan Assessment and plan: This is a 66-year-old female with HTN, DM admitted with a STEMI Neuro: Acute metabolic encephalopathy secondary to hypotension vs medication induced -Patient had an acute change in mental status and was taken for a stat CT head -CT head negative for acute changes -Repeat CT head negative for acute changes -MRI brain pending -Reorientation as needed -Maintain sleep-wake cycle -As needed analgesia -Prn haldol and ativan -Started on precedex gtt overnight but DC today Cardiac: STEMI -Cardiology consulted, appreciate recommendations -s/p PCI with stent to LAD (100% occlusion) -ACEi, BB, Plavix, lipitor -Heparin subq -Blood pressure monitoring per protocol -Echocardiogram shows EF of 25-30% -Nitro SL prn -Trend Troponin (admit 0.211, 0227: 71.6, 1010: 18.2) -Lasix IVP x2 -Dobutamine gtt Respiratory: Acute hypoxic respiratory failure -Currently on NRB -Supplemental oxygen as needed -SPO2 monitor per protocol -Pulmonary hygiene GI: NAD -CC cardiac diet -PPI -BR: colace : NAD -Monitor intake and output -Renally dose medications -Avoid nephrotoxic medications -Trend BMP ID: r/o CAP -Cefepime -vancomycin x1 -BC x 2 -follow up with BC -Procal and CRP pending -Monitor WBC and temperature curve Endo: h/o DM -Hbg A1C 7.7 -SSI -Accu-Cheks ACHS -Long-acting insulin, titrate as needed -Avoid hypoglycemia Heme: Leukocytosis -Trend CBC -Transfuse hemoglobin less than 7 -SCDs to BLE while in bed The high probability of a clinically significant, sudden or life threatening deterioration of the [cardio] system(s) required my full and direct attention, intervention and personal management. The aggregate critical care time was [60] minutes. This time is in addition to time spent performing reported procedures but includes the following: [x] Data Review and interpretation [x] Patient assessment and monitoring of vital signs [x] Documentation [x] Medication orders and management Disposition Plan: icu Total Time Spent with Patient (Minutes): 60 History Interval history: This is this is a 66-year-old female with HTN, DM who presented to the emergency department on 01/21 for severe chest pain rated 10/10 on the left side for the past hour prior to arrival. In the emergency department patient ECG was consistent with STEMI and patient was hypotensive, initial troponin was 0.211. Patient received Plavix and aspirin and she was initiated on nitroglycerin drip. Cardiology was consulted and was taken emergently to the [facility] for cardiac cath by Dr. Durbin. Patient was admitted to the hospitalist service with consults to cardiology for STEMI with consult to [facility] Hospital course to date: 01/22: Patient was on nitroglycerin drip and due to hypotension blood pressure medications were adjusted. After nitroglycerin drip was increased patient became hypotensive and exhibited altered mental status with orientation to self only. Prior to this patient was having in conversation with staff. Patient was taken for a stat CT head which was negative. Dr. Durbin was updated. Aggrastat discontinued. Patient placed on heparin subcu and placed back on lisinopril. She will continue FIONA, beta-mac, Plavix and Lipitor. 01/23: Patient still having altered mental status, repeat CT head was negative, MRI brain pending. Patient started on dobutamine and CXR did not show pulmonary edema and blood pressures are on the softer side. Patient was given Lasix. She was given Haldol and Ativan also. Hospitalist Physical - Constitutional Vitals: Temp Pulse Resp BP Pulse Ox 100.5 F H 106 H 31 H 111/70 100 01/23/22 11:45 01/23/22 12:20 01/23/22 12:20 01/23/22 12:20 01/23/22 12:20 General appearance: Present: mild distress, obese - EENT Eyes: Present: PERRL, EOM intact ENT: clear oral mucosa, dentition normal - Neck Neck: Present: normal ROM - Respiratory Respiratory effort: normal Respiratory: bilateral: diminished - Cardiovascular Rhythm: regular Heart Sounds: Present: S1 & S2. Absent: systolic murmur, diastolic murmur Peripheral Pulses: within normal limits - Abdominal General gastrointestinal: soft, non-tender, non-distended, normal bowel sounds - Integumentary Integumentary: Present: warm, dry - Psychiatric Psychiatric: no appropriate mood/affect, no intact judgment & insight, agitated - Neurologic Neurologic: moves all extremities, other (confused, orientated to self, agitated) - Allied Health Allied health notes reviewed: nursing, RT, social work HEART Score - HEART Score EKG: Significant ST-depression Age: 45-65 Risk factors: 1-2 risk factors Troponin: Troponin T 8.010 ng/mL (0.00-0.029) H* D 01/23/22 04:14 Troponin: > 3x normal limit - Critical Actions Critical Actions: >7 pts:50-65% risk of adverse cardiac event. Early invasive measures Results - Labs CBC & Chem 7: 01/23/22 04:14 01/23/22 04:14 Labs: Laboratory Last Values WBC 16.0 K/mm3 (4.5-11.0) H 01/23/22 04:14 RBC 5.27 M/mm3 (3.65-5.03) H 01/23/22 04:14 Hgb 13.0 gm/dl (10.1-14.3) 01/23/22 04:14 Hct 40.5 % (30.3-42.9) 01/23/22 04:14 MCV 77 fl (79-97) L 01/23/22 04:14 MCH 25 pg (28-32) L 01/23/22 04:14 MCHC 32 % (30-34) 01/23/22 04:14 RDW 17.2 % (13.2-15.2) H 01/23/22 04:14 Plt Count 238 K/mm3 (140-440) 01/23/22 04:14 Lymph % (Auto) 12.5 % (13.4-35.0) L 01/23/22 04:14 [place] % (Auto) 6.8 % (0.0-7.3) 01/23/22 04:14 Eos % (Auto) 0.1 % (0.0-4.3) 01/23/22 04:14 Baso % (Auto) 0.5 % (0.0-1.8) 01/23/22 04:14 Lymph # (Auto) 2.0 K/mm3 (1.2-5.4) 01/23/22 04:14 [place] # (Auto) 1.1 K/mm3 (0.0-0.8) H 01/23/22 04:14 Eos # (Auto) 0.0 K/mm3 (0.0-0.4) 01/23/22 04:14 Baso # (Auto) 0.1 K/mm3 (0.0-0.1) 01/23/22 04:14 Seg Neutrophils % 80.1 % (40.0-70.0) H 01/23/22 04:14 Seg Neutrophils # 12.8 K/mm3 (1.8-7.7) H 01/23/22 04:14 PT 13.4 Sec. (12.2-14.9) 01/21/22 23:19 INR 0.92 (0.87-1.13) 01/21/22 23:19 APTT 27.5 Sec. (24.2-36.6) 01/21/22 23:19 Sodium 139 mmol/L (137-145) 01/23/22 04:14 Potassium 6.0 mmol/L (3.6-5.0) H D 01/23/22 04:14 Chloride 106.6 mmol/L (98-107) 01/23/22 04:14 Carbon Dioxide 20 mmol/L (22-30) L 01/23/22 04:14 Anion Gap 18 mmol/L 01/23/22 04:14 BUN 26 mg/dL (7-17) H 01/23/22 04:14 Creatinine 0.9 mg/dL (0.6-1.2) 01/23/22 04:14 Estimated GFR > 60 ml/min 01/23/22 04:14 BUN/Creatinine Ratio 29 % 01/23/22 04:14 Glucose 156 mg/dL (65-100) H 01/23/22 04:14 POC Glucose 206 mg/dL (70-105) H 01/22/22 21:37 Hemoglobin A1c 7.7 % (4-6) H 01/21/22 23:19 Calcium 9.2 mg/dL (8.4-10.2) 01/23/22 04:14 Phosphorus 3.70 mg/dL (2.5-4.5) 01/22/22 10:10 Magnesium 1.90 mg/dL (1.7-2.3) 01/22/22 10:10 Total Bilirubin 0.50 mg/dL (0.1-1.2) 01/22/22 20:11 AST 351 units/L (5-40) H 01/22/22 20:11 ALT 119 units/L (7-56) H 01/22/22 20:11 Alkaline Phosphatase 111 units/L (35-129) 01/22/22 20:11 Ammonia 52.0 umol/L (25-60) 01/22/22 20:11 Total Creatine Kinase 8640 units/L (30-135) H 01/22/22 10:10 CK-MB (CK-2) > 600.0 ng/mL (0.0-4.0) H 01/22/22 10:10 CK-MB (CK-2) Rel Index 6.9 (0-4) H 01/22/22 10:10 Troponin T 8.010 ng/mL (0.00-0.029) H* D 01/23/22 04:14 Total Protein 7.1 g/dL (6.3-8.2) 01/22/22 20:11 Albumin 3.9 g/dL (3.9-5) 01/22/22 20:11 Albumin/Globulin Ratio 1.2 % 01/22/22 20:11 Triglycerides 203 mg/dL (2-149) H 01/21/22 23:19 Cholesterol 328 mg/dL (50-199) H 01/21/22 23:19 LDL Cholesterol Direct 246 mg/dL (50-130) H 01/21/22 23:19 HDL Cholesterol 47 mg/dL (40-59) 01/21/22 23:19 Cholesterol/HDL Ratio 6.97 % 01/21/22 23:19 Urine Color Yellow (Yellow) 01/22/22 22:30 Urine Turbidity Clear (Clear) 01/22/22 22:30 Specific [place] (Man) 1.020 (1.003-1.030) 01/22/22 22:30 Ur Protein (Man) 3+ mg/dL (Negative) 01/22/22 22:30 Ur Ketones (Man) Negative (Negative) 01/22/22 22:30 Ur Nitrite (Man) Negative (Negative) 01/22/22 22:30 Urine Bilirubin (Man) Small (Negative) 01/22/22 22:30 Urine Ictotest Negative (Negative) 01/22/22 22:30 Leukocyte Esterase (Man) Negative (Negative) 01/22/22 22:30 Urine WBC (Auto) 4.0 /HPF (0.0-6.0) 01/22/22 22:30 Urine RBC (Auto) < 1.0 /HPF (0.0-6.0) 01/22/22 22:30 U Epithel Cells (Auto) 5.0 /HPF (0-13.0) 01/22/22 22:30 Urine Bacteria (Auto) 2+ /HPF (Negative) 01/22/22 22:30 Urine RBC (Manual) Negative (Negative) 01/22/22 22:30 Urine Mucus Few /HPF 01/22/22 22:30 Blood Type O POSITIVE 01/21/22 23:19 Antibody Screen Negative 01/21/22 23:19 Alvarez/IV: Voiding Method Indwelling Catheter Active Medications - Current Medications Current Medications: Generic Name Dose Route Start Last Admin Trade Name Freq PRN Reason Stop Dose Admin Acetaminophen 650 mg 01/21/22 23:35 Acetaminophen 325 Mg Tab PO Q6H PRN Pain, Mild (1-3) Aspirin 81 mg 01/22/22 10:00 01/23/22 09:57 Aspirin Ec 81 Mg Tab PO 81 mg QDAY IVETTE Administration Atorvastatin Calcium 40 mg 01/22/22 22:00 01/22/22 21:21 Atorvastatin 40 Mg Tab PO 40 mg QHS IVETTE Administration Clopidogrel Bisulfate 75 mg 01/22/22 10:00 01/23/22 09:57 Clopidogrel 75 Mg Tab PO 75 mg QDAY IVETTE Administration Dextrose 50 ml 01/21/22 23:35 Dextrose 50% In Water (25gm) 50 Ml Syringe IV Q30MIN PRN Hypoglycemia Protocol Docusate Sodium 100 mg 01/22/22 22:00 01/22/22 21:22 Docusate Sodium 100 Mg Cap PO 100 mg BID IVETTE Administration Furosemide 40 mg 01/23/22 11:45 01/23/22 11:32 Furosemide 40 Mg/4 Ml Inj IV 01/23/22 15:45 40 mg ONCE@1145 IVETTE Administration Haloperidol Lactate 5 mg 01/23/22 10:21 01/23/22 10:36 Haloperidol Lactate 5 Mg/1 Ml Inj IV 5 mg Q6HR PRN Administration Agitation Heparin Sodium (Porcine) 5,000 unit 01/22/22 22:00 01/23/22 05:54 Heparin 5,000 Unit/1 Ml Vial SUB-Q 5,000 unit Q8HR IVETTE Administration Hydralazine HCl 10 mg 01/22/22 17:08 01/22/22 17:19 Hydralazine 20 Mg/1 Ml Inj IV 10 mg Q4HR PRN Administration Hypertension Nitroglycerin/Dextrose 50 mg in 250 mls @ 3 mls/hr 01/21/22 23:45 01/22/22 12:09 Tridil Drip 50mg/250ml IV 0 mcg/min TITR IVETTE 0 mls/hr Titration Protocol 10 MCG/MIN Dexmedetomidine HCl 200 mcg/ 50 mls @ 3.856 mls/hr 01/23/22 01:09 01/23/22 08:57 Sodium Chloride IV 0 mcg/kg/hr TITRATE IVETTE 0 mls/hr Titration Protocol 0.2 MCG/KG/HR Ceftriaxone Sodium 2 gm in 100 mls @ 200 mls/hr 01/23/22 09:00 01/23/22 11:15 Rocephin/Ns 2 Gm/100 Ml IV Infused Q24H IVETTE Infusion Protocol Azithromycin 500 mg in 250 mls @ 250 mls/hr 01/23/22 09:00 01/23/22 11:15 Zithromax/Ns IV Infused Q24H IVETTE Infusion Dobutamine HCl/Dextrose 500 mg in 250 mls @ 11.567 mls/hr 01/23/22 11:00 01/23/22 11:25 Dobutrex Drip 500mg/D5w 250ml IV 0 mcg/kg/min DIRECT IVETTE 0 mls/hr Infusion Protocol 5 MCG/KG/MIN Insulin Glargine 10 units 01/22/22 11:30 01/23/22 08:37 Insulin Glargine 100 Units/Ml SUB-Q 10 units QAMDIAB IVETTE Administration Insulin Human Lispro 0 unit 01/22/22 11:30 01/23/22 11:41 Insulin Lispro 100 Unit/Ml SUB-Q Not Given ACHS [facility] Protocol Lisinopril 5 mg 01/23/22 10:00 Lisinopril 5 Mg Tab PO QDAY IVETTE Lorazepam 1 mg 01/23/22 10:21 01/23/22 11:29 Lorazepam 2 Mg/Ml Vial IV 1 mg Q4HR PRN Administration Agitation Metoprolol Tartrate 50 mg 01/22/22 01:00 01/22/22 21:21 Metoprolol Tartrate 50 Mg Tab PO 50 mg BID IVETTE Administration Morphine Sulfate 2 mg 01/21/22 23:35 01/23/22 01:05 Morphine 4 Mg/1 Ml Inj IV 2 mg Q5MIN PRN Administration Chest Pain unrelieved by NTG Nitroglycerin 0.4 mg 01/21/22 23:35 01/22/22 09:16 Nitroglycerin 0.4 Mg Tab Subl SL 0.4 mg Q5M PRN Administration Chest Pain Ondansetron HCl 4 mg 01/22/22 10:02 01/22/22 10:18 Ondansetron 4 Mg/2 Ml Inj IV 4 mg Q4H PRN Administration Nausea And Vomiting Pantoprazole Sodium 40 mg 01/22/22 10:00 01/22/22 09:07 Pantoprazole 40 Mg Tab PO 40 mg QDAY IVETTE Administration Sodium Chloride 10 ml 01/21/22 23:35 Sodium Chloride 0.9% 10 Ml Flush Syringe IV PRN PRN LINE FLUSH Tramadol HCl 50 mg 01/21/22 23:35 Tramadol 50 Mg Tab PO Q6H PRN Pain, Moderate (4-6) Nutrition/Malnutrition Assess - Dietary Evaluation Nutrition/Malnutrition Findings: Nutrition Notes Start: 01/22/22 09:19 Freq: Status: Active Protocol: Document 01/22/22 09:19 TW (Rec: 01/22/22 10:04 TW [email or web address]) Nutrition Notes 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 Pt has chest pain/Acute AR. Not able to assess PO intake at this time. Burn Absent Trauma Absent GI Symptoms Nausea Minimum of two criteria No Is patient on ventilator? No Is Patient Ambulatory and/or Out of Bed No REE-([facility]-confined to bed) 0711.421 Nutrition Intervention Change Diet Order: Continue current diet Follow-Up By: 01/23/22 Additional Comments F/U for intakes
[2022-01-23] MEDS ORDERED: LORazepam 2 MG/ML VIAL IV NR ×2 (13:00→19:11)
--- NOTE | 2022-01-23 13:07 | XRay Report ---
ABDOMEN 1 VIEW 01/23/2022 INDICATION / CLINICAL INFORMATION: dobhoff placement. COMPARISON: Chest radiograph from earlier in the day FINDINGS: TUBES / LINES: Weighted enteric tube terminates within the stomach. BOWEL GAS PATTERN: No significant abnormality. FREE AIR / EXTRALUMINAL GAS: None seen. ADDITIONAL FINDINGS: No significant change in lung parenchyma compared to prior radiograph. IMPRESSION: 1. Weighted enteric tube terminates within the stomach. Signer Name: Timbo Hooper DO Signed: 01/23/2022 1:02 PM Workstation Name: [id number]
[2022-01-23] MEDS ORDERED: VANCOMYCIN 1,250 MG in SODIUM CHLORIDE 0.9% 500 ML 500 ML IV ONE (13:20)
[2022-01-23] MEDS ORDERED: ASPIRIN 81 MG TAB CHEW FEEDTUBE SCH (14:00)
[2022-01-23] MEDS ORDERED: LISINOPRIL 5 MG TAB FEEDTUBE SCH (14:00)
--- NOTE | 2022-01-23 14:08 | Progress Note ---
Assessment and Plan - Patient Problems (1) STEMI (ST elevation myocardial infarction) Current Visit: Yes Status: Acute Plan to address problem: Patient is status post successful primary angioplasty and stenting of the LAD following an acute anterolateral STEMI. Continue guideline directed medical therapy. (2) CHF (congestive heart failure) Current Visit: Yes Status: Acute Qualifiers: Heart failure type: combined systolic and diastolic Plan to address problem: Patient in mild respiratory distress likely from low EF on echo. Unclear reason for altered mental status. Heart dobutamine 2.5 mcg/kg per minute. she got 1 dose of Lasix we will give another dose in about 6 hours. Please give Lasix as needed. Subjective Principal diagnosis: Acute STEMI Interval history: Patient became altered yesterday. She had a CT scan which did not show any acute stroke. Patient appears to be in mild respiratory distress on nonrebreather. Objective Vital Signs Temp Pulse Pulse Resp BP Pulse Ox 01/23/22 13:00 107 H 27 H 123/68 100 01/23/22 12:56 108 H 28 H 112/68 100 01/23/22 12:50 107 H 27 H 112/68 100 01/23/22 12:46 107 H 27 H 112/68 100 01/23/22 12:40 108 H 28 H 112/68 100 01/23/22 12:36 106 H 30 H 112/68 01/23/22 12:30 106 H 26 H 112/68 100 01/23/22 12:26 106 H 28 H 111/70 100 01/23/22 12:20 106 H 31 H 111/70 100 01/23/22 12:16 110 H 33 H 111/70 100 01/23/22 12:10 105 H 29 H 100 01/23/22 12:06 105 H 29 H 190/100 100 01/23/22 12:00 105 H 107 H 30 H 190/100 100 01/23/22 11:56 106 H 29 H 190/100 01/23/22 11:50 109 H 30 H 190/100 01/23/22 11:46 110 H 29 H 190/100 01/23/22 11:45 100.5 F H 01/23/22 11:40 114 H 29 H 190/100 100 01/23/22 11:36 122 H 28 H 190/100 01/23/22 11:30 148 H 39 H 157/103 79 L 01/23/22 11:26 140 H 47 H 157/103 93 01/23/22 11:20 128 H 41 H 157/103 93 01/23/22 11:16 124 H 37 H 157/103 93 01/23/22 11:00 121 H 32 H 157/103 91 01/23/22 10:30 119 H 48 H 145/97 88 01/23/22 10:00 105 H 34 H 148/89 97 01/23/22 09:30 111 H 37 H 96/60 94 01/23/22 09:00 82 19 96/60 99 01/23/22 08:30 80 29 H 89/43 98 01/23/22 08:00 82 26 H 91/52 96 01/23/22 07:44 93 H 24 93 01/23/22 07:30 115 H 38 H 92/55 87 01/23/22 07:14 99.0 F 01/23/22 07:00 82 28 H 92/55 99 01/23/22 06:30 81 24 101/68 99 01/23/22 06:00 83 25 H 98/65 97 01/23/22 05:30 83 24 93/61 97 01/23/22 05:00 88 23 101/68 95 01/23/22 04:30 126 H 37 H 105/71 79 L 01/23/22 04:00 99 F 87 87 24 105/71 98 01/23/22 03:30 91 H 25 H 114/74 97 01/23/22 03:00 96 H 25 H 141/87 97 01/23/22 02:30 101 H 25 H 169/109 95 01/23/22 02:00 113 H 30 H 169/109 92 01/23/22 01:35 22 01/23/22 01:30 120 H 38 H 177/128 89 01/23/22 01:05 24 96 01/23/22 01:00 126 H 39 H 169/102 69 L 01/23/22 00:30 111 H 37 H 140/94 89 01/23/22 00:00 98.8 F 92 H 92 H 20 132/88 96 01/22/22 23:30 93 H 24 144/85 96 01/22/22 23:04 96 H 24 138/88 97 01/22/22 23:00 97 H 24 138/88 97 01/22/22 22:30 106 H 28 H 144/87 94 01/22/22 22:00 105 H 28 H 154/97 95 01/22/22 21:30 117 H 36 H 158/103 92 01/22/22 21:21 115 H 158/103 01/22/22 21:00 116 H 34 H 153/101 89 01/22/22 20:46 96 01/22/22 20:30 115 H 34 H 154/100 96 01/22/22 20:25 18 01/22/22 20:00 98.2 F 107 H 107 H 28 H 149/96 92 01/22/22 19:55 22 01/22/22 19:45 113 H 34 H 150/102 91 01/22/22 19:30 111 H 30 H 147/92 93 01/22/22 19:15 103 H 28 H 147/92 01/22/22 19:00 117 H 18 118/64 01/22/22 18:45 100 H 27 H 141/87 01/22/22 18:30 93 H 26 H 129/75 94 01/22/22 18:18 118/64 95 01/22/22 18:00 94 H 24 118/64 01/22/22 17:45 98 H 22 124/77 95 01/22/22 17:30 102 H 21 145/91 96 01/22/22 17:19 93 H 164/104 01/22/22 17:15 93 H 22 164/104 94 01/22/22 17:00 91 H 20 178/113 01/22/22 16:45 101 H 24 184/124 94 01/22/22 16:30 114 H 21 174/118 93 01/22/22 16:15 90 24 165/111 93 01/22/22 16:00 90 102 H 22 162/104 94 01/22/22 15:57 99.5 F 01/22/22 15:46 97 H 22 150/99 94 01/22/22 15:30 94 H 22 138/92 95 01/22/22 15:15 87 21 138/92 95 01/22/22 15:00 91 H 21 150/99 94 01/22/22 14:45 100 H 22 132/82 95 01/22/22 14:30 92 H 24 136/94 93 01/22/22 14:24 94 H 23 125/83 94 01/22/22 14:22 91 H 25 H 125/83 95 01/22/22 14:20 89 22 125/83 97 01/22/22 14:18 90 19 125/83 95 01/22/22 14:16 80 20 125/83 94 01/22/22 14:15 85 20 125/83 94 01/22/22 14:14 85 20 123/81 94 01/22/22 14:12 93 H 18 123/81 93 01/22/22 14:10 87 23 123/81 95 01/22/22 14:08 82 22 123/81 95 01/22/22 14:06 90 22 123/81 93 - Physical Examination General: Other (Mild respiratory disease and altered mental status) HEENT: Positive: PERRL Neck: Positive: neck supple Cardiac: Positive: Regular Rate, S1/S2 Lungs: Positive: Decreased Breath Sounds, Rales Neuro: Positive: Grossly Intact Abdomen: Positive: Soft Skin: Positive: Clear Extremities: Absent: edema - Labs and Meds Cardiac Enzymes 01/22/22 Range/Units 20:11 AST 351 H (5-40) units/L CBC 01/22/22 01/23/22 Range/Units 20:11 04:14 WBC 12.5 H 16.0 H (4.5-11.0) K/mm3 RBC 5.17 H 5.27 H (3.65-5.03) M/mm3 Hgb 12.8 13.0 (10.1-14.3) gm/dl Hct 39.8 40.5 (30.3-42.9) % Plt Count 251 238 (140-440) K/mm3 Lymph # (Auto) 2.0 (1.2-5.4) K/mm3 Riley # (Auto) 1.1 H (0.0-0.8) K/mm3 Eos # (Auto) 0.0 (0.0-0.4) K/mm3 Baso # (Auto) 0.1 (0.0-0.1) K/mm3 Comprehensive Metabolic Panel 01/22/22 01/23/22 Range/Units 20:11 04:14 Sodium 139 139 (137-145) mmol/L Potassium 4.9 6.0 H D (3.6-5.0) mmol/L Chloride 105.6 106.6 (98-107) mmol/L Carbon Dioxide 18 L 20 L (22-30) mmol/L BUN 18 H 26 H (7-17) mg/dL Creatinine 0.8 0.9 (0.6-1.2) mg/dL Glucose 191 H 156 H (65-100) mg/dL Calcium 9.3 9.2 (8.4-10.2) mg/dL AST 351 H (5-40) units/L ALT 119 H (7-56) units/L Alkaline Phosphatase 111 (35-129) units/L Total Protein 7.1 (6.3-8.2) g/dL Albumin 3.9 (3.9-5) g/dL - Telemetry EKG Rhythm: Sinus Tachycardia
[2022-01-23] MEDS ORDERED: AZITHROMYCIN 250 MG/6.25 ML ORAL LIQD PO SCH (15:01)
--- NOTE | 2022-01-23 15:14 | Magnetic Resonance Report ---
MR brain wo con INDICATION / CLINICAL INFORMATION: 66 years Female; AMS. TECHNIQUE: Multiplanar, multisequence MR images of the brain were obtained. COMPARISON: None available. FINDINGS: BRAIN / INTRACRANIAL CONTENTS: There is an acute to infarct centered within the left or parietal lobe measuring approximately 5.7 cm in greatest AP dimension. There is developing edema and mild mass eff ect with sulcal effacement from the earlier CT. There are scattered smaller foci of acute infarction within the left frontal lobe as well as the right frontal and parieto-occipital regions along the bor rico zone vascular distributions. The findings may be related to hypoxia given the distribution or pos sibly embolic in nature given the predominant left parietal finding. There is no evidence of acute infarction within the posterior fossa. There appears be slight mass eff ect upon the posterior left lateral ventricle. Otherwise, the ventricular system is unremarkable. The brain otherwise appears to demonstrate appropriate signal characteristics for age. CRANIOCERVICAL JUNCTION: The motion artifact limits the sagittal imaging. However, the craniocervical junction appears unremarkable. VASCULAR FLOW-VOIDS: No significant abnormality. ORBITS: No significant abnormality of visualized orbits. SINUSES / MASTOIDS: There are mild inflammatory changes within the right maxillary sinus at. ADDITIONAL FINDINGS: None. IMPRESSION: 1. There is an acute infarct centered within the left parietal lobe as detailed above. There are smal ler foci along the border zone vascular distributions of the cerebral hemispheres bilaterally. Signer Name: Sherif Farley MD Signed: 01/23/2022 3:10 PM Workstation Name: [id number]
[2022-01-23] MEDS: CLOPIDOGREL 75 MG TAB FEEDTUBE SCH (15:39)
--- NOTE | 2022-01-23 16:39 | Event Note ---
Date: 01/23/2201/23: Patient had an MRI which revealed acute infarct centered within the left parietal lobe measuring approximately 5.7 cm, developing edema and mild mass- effect with sulcal effacement from earlier CT. Scattered smaller foci of acute infarction within the left frontal lobe as well as a right frontal and parietal occipital regions along the border zone vascular distributions. Findings may be related to hypoxia given the distribution or possibly embolic in nature given predominant left parietal finding. Dr. Bergman and Dr. Castro are aware of the findings. Patient will be started on 2% normal saline through PIV. MRA head and neck with contrast ordered for as stat. Neurology consulted. I updated daughter at bedside, Louisa Arenas of current events and she stated understanding. After speaking with CNO, informed no electrical assembly technician available for MRA H/N which is the preferred test. Dr. Bergman also informed. Changed test to CTA H/N stat. Dr. Coburn placed CVL, 3% saline ordered.
--- NOTE | 2022-01-23 16:39 | Event Note ---
Date: 01/23/22 Patient has been encephalopathic. Initial CT studies x 2 negative. MRI completed this afternoon demonstrates new stroke in left parietal region. some mild edema noted. Appears more embolic rather than hypoxia/cerebral perfusion induced. MRA head and neck ordered. Ordered 2% NS IV. Consult to neurology, awaiting input. Family updated. Discussed findings and care plan with Screw Supervisor Dr. Castro and ICU team. 30 min cct.
[2022-01-23] MEDS ORDERED: SODIUM CHLORIDE 3% 500 ML IV ONE (17:39)
--- NOTE | 2022-01-23 18:22 | Procedure Note ---
Date of procedure: 01/23/22 Pre-op diagnosis: STEMI, respiratory failure Post-op diagnosis: same Procedure: Right internal jugular vein triple-lumen catheter placement ultrasound guidance after informed consent was obtained the patient was prepped and draped in the usual sterile fashion. A timeout was taken with the patient's nurse at bedside to verify the correct patient, correct procedure, and correct operative site. Local anesthesia obtained with 1% lidocaine. Ultrasound was utilized to localize the right internal jugular vein without difficulty. A seeker needle was utilized using the Seldinger technique to access the right internal jugular vein under ultrasound guidance without difficulty. A guidewire was then advanced into the right internal jugular vein via the seeker needle and the seeker needle subsequently removed. A scalpel was used to incise the skin at t he insertion site. A dilator was then passed over the guidewire into the right internal jugular vein and subsequently removed. A preflushed triple-lumen catheter was then advanced over the guidewire into the right internal jugular vein without difficulty and the guidewire removed. All 3 ports flush and drawl with ease. 3-0 silk suture was utilized to secure the line in place. A Biopatch was placed at the insertion site. A sterile dressing was utilized to cover the triple-lumen catheter. Postoperative chest x-ray reveals triple-lumen catheter in expected position. No pneumothorax. Estimated blood loss minimal. Complications none. Specimens none.
--- NOTE | 2022-01-23 18:59 | XRay Report ---
CHEST 1 VIEW INDICATION / CLINICAL INFORMATION: CVL PLACEMENT STUDY TIME: 1838 COMPARISON: 01/23/2022 1443 FINDINGS: SUPPORT DEVICES: Feeding tube now extends well into the proximal stomach. A right jugular central tolu e is now seen with tip in the area of the mid to distal superior vena cava. HEART / MEDIASTINUM: Stable LUNGS / PLEURA: Patchy bilateral moderate pulmonary infiltrates continue with mild worsening noted. N o pneumothorax. ADDITIONAL FINDINGS: No significant additional findings. Signer Name: Coy Moctezuma MD Signed: 01/23/2022 6:55 PM Workstation Name: [id number]
[2022-01-23 19:44] LABS: BUN/Creatinine Ratio 31; Blood Urea Nitrogen 31 mg/dL (7-17); Calcium 8.4 mg/dL (8.4-10.2); Hemolysis Index 58
[2022-01-23 21:41] LABS: Creatine Kinase MB 38.7 ng/mL (0.0-4.0)
[2022-01-23] MEDS ORDERED: FAMOTIDINE 20 MG TAB FEEDTUBE SCH (22:00)
[2022-01-23] MEDS ORDERED: METOPROLOL TARTRATE 25 MG TAB FEEDTUBE SCH (22:00)
[2022-01-23] MEDS: DOCUSATE SODIUM 100 MG/10 ML ORAL LIQD FEEDTUBE SCH (23:10)
[2022-01-23] MEDS ORDERED: METOPROLOL TARTRATE 5 MG/5 ML INJ IV ONE (23:36)
--- NOTE | 2022-01-23 23:43 | Cat Scan Report ---
CT angio head INDICATION / CLINICAL INFORMATION: 66 years Female; cva. TECHNIQUE: Thin cut axial images obtained through the head during IV bolus contrast administration. S agittal, coronal, and 3 plane MIP reconstructions performed by the technologist. NASCET type criteria used evaluate stenoses. Automated exposure control utilized for radiation reduction purposes. COMPARISON: The study is compared to the earlier MRI brain of 01/22/2022. FINDINGS: INTERNAL CAROTID ARTERIES: There is mild calcification involving the intracranial ICAs without clear CTA evidence of significant stenosis by NASCET criteria. VERTEBROBASILAR SYSTEM: The visualized vertebrobasilar system also appears to demonstrate appropriate caliber without significant focal narrowing. CEREBRAL ARTERIES: The motion degrades the image quality. However, there is notable edema involving t he high left parietal lobe compatible with the earlier MRI demonstrating acute infarction. There is r elative paucity of distal enhancing branches within this region compatible with relative decreased fl ow. There is no significant stenosis or large vessel occlusion involving the more proximal M1 or M2 s egments. The anterior and posterior cerebral arteries appear to demonstrate appropriate caliber without signif icant stenosis involving visualized segments. The right MCA branches also appear to demonstrate appro priate caliber. The dural venous sinuses opacify with contrast. ANEURYSM: Findings appear most consistent with incidental infundibulum of the right posterior communi cating artery. Otherwise, there is no clear CTA evidence of intracranial aneurysm. ADDITIONAL FINDINGS: Remainder of the surrounding soft tissues are grossly normal. IMPRESSION: There is edema centered within the left parietal lobe compatible with recent infarct with associated posterior vessels in this region and decreased flow. However, there is no clear evidence of significa nt stenosis or large vessel occlusion involving more proximal M1 or M2 segments Signer Name: Sherif Farley MD Signed: 01/23/2022 11:39 PM Workstation Name: [id number]
--- NOTE | 2022-01-24 00:08 | Cat Scan Report ---
CT angio neck INDICATION / CLINICAL INFORMATION: 66 years Female; cva. TECHNIQUE: Thin cut axial images obtained through the head during IV bolus contrast administration. S agittal, coronal, and 3 plane MIP reconstructions performed by the technologist. NASCET type criteria used evaluate stenoses. All CT scans at this location are performed using CT dose reduction for ALAR A by means of automated exposure control. COMPARISON: None available. FINDINGS: CAROTID ARTERIES: The motion and beam hardening from the dense contrast within the venous structures significant degrades the image quality, particularly evaluating the proximal neck vessels at. However , there is atherosclerotic calcification involving carotid bifurcations and proximal internal carotid arteries bilaterally without significant stenosis by NASCET to criteria. However, there does appear to be some ulceration of the plaque involving right carotid bifurcation. VERTEBRAL ARTERIES: The origins of the vertebral arteries are particularly obscured by the degree of artifact. The more distal segments appear to demonstrate appropriate caliber without significant foca l stenosis bilaterally. There is suggestion of moderate to stenosis involving origin of the right johnny tebral artery. ARCH: The arch vessels are also obscured by the degree of artifact at. This mild calcification involv ing proximal left subclavian artery. However, there is no gross evidence of significant stenosis of t he origins of the arch vessels. ADDITIONAL FINDINGS: There is notable scattered consolidation involving visualized upper lungs bilate rally. There are also bilateral pleural effusions. IMPRESSION: There is mild calcified plaque involving carotid bifurcations bilaterally without significant stenosi s by NASCET criteria. However, there appears be component of ulceration on the right. The motion and beam hardening degrade the image quality. However, there appears be moderate narrowing of the origin of the right vertebral artery. There is notable scattered consolidation involving visualized upper lungs with bilateral pleural effu sions. The study was specified as stat and dictated emergently at 11:02 PM Central standard time. Signer Name: Sherif Farley MD Signed: 01/24/2022 12:03 AM Workstation Name: [id number]
[2022-01-24] MEDS: HALOPERIDOL LACTATE 5 MG/1 ML INJ IV PRN ×3 (00:34→16:31)
[2022-01-24] MEDS ORDERED: MORPHINE 2 MG/1 ML INJ IV ONE (00:52)
[2022-01-24 01:00] LABS: BUN/Creatinine Ratio 33; Blood Urea Nitrogen 30 mg/dL (7-17); Hemolysis Index 6
[2022-01-24] MEDS: FUROSEMIDE 40 MG/4 ML INJ IV SCH ×2 (01:02→09:10)
[2022-01-24 03:45] LABS: Hematocrit 37.9 % (30.3-42.9); Hemoglobin 11.8 gm/dl (10.1-14.3); Mean Corpuscular HGB Conc 31 % (30-34); Mean Corpuscular Volume 78 fl (79-97); Platelet Count 187 K/mm3 (140-440); Red Blood Count 4.88 M/mm3 (3.65-5.03); Red Cell Distribution Width 17.3 % (13.2-15.2)
[2022-01-24 03:59] LABS: Osmolality,Urine 574 Mosm/kg
[2022-01-24 04:08] LABS: Alanine Aminotransferase 59 units/L (7-56); Albumin 3.1 g/dL (3.9-5); BUN/Creatinine Ratio 36; Blood Urea Nitrogen 29 mg/dL (7-17); Calcium 7.8 mg/dL (8.4-10.2); Hemolysis Index 3
[2022-01-24] MEDS: MORPHINE 4 MG/1 ML INJ IV PRN (04:30)
[2022-01-24] MEDS: LORazepam 2 MG/ML VIAL IV PRN ×3 (07:40→19:05)
[2022-01-24] MEDS: INSULIN LISPRO 100 UNIT/ML SUB-Q SCH ×3 (08:15→17:08)
[2022-01-24 08:17] LABS: BUN/Creatinine Ratio 31; Blood Urea Nitrogen 25 mg/dL (7-17); Calcium 7.9 mg/dL (8.4-10.2); Hemolysis Index 4
[2022-01-24 08:50] LABS: Osmolality,Urine 704 Mosm/kg
[2022-01-24] MEDS: CLOPIDOGREL 75 MG TAB FEEDTUBE SCH (09:10)
[2022-01-24] MEDS: DOCUSATE SODIUM 100 MG/10 ML ORAL LIQD FEEDTUBE SCH (09:10)
[2022-01-24] MEDS: ASPIRIN EC 81 MG TAB PO SCH (09:10)
[2022-01-24] MEDS: cefTRIAXone/NS 2 GM/100 ML 2 GM/100 ML BAG IV SCH (09:11)
[2022-01-24] MEDS: INSULIN GLARGINE 100 UNITS/ML SUB-Q SCH (09:11)
[2022-01-24] MEDS ORDERED: AZITHROMYCIN 250 MG/6.25 ML ORAL LIQD PO SCH (10:00)
[2022-01-24] MEDS ORDERED: FUROSEMIDE 40 MG/4 ML INJ IV SCH (10:00)
[2022-01-24] MEDS ORDERED: SODIUM CHLORIDE 3% 500 ML IV SCH (11:00)
[2022-01-24] MEDS ORDERED: AZITHROMYCIN/NS 500 MG/250 ML 500 MG/250 ML BAG IV SCH (11:00)
[2022-01-24] MEDS ORDERED: SODIUM CHLORIDE 3% 500 ML IV ONE (11:00)
--- NOTE | 2022-01-24 11:06 | Progress Note ---
Assessment and Plan 66 y/o female with STEMI 01/14/22: MRI shows acute stroke. Neuro still has not evaluated. I have called [facility] (no beds) and Just got off the phone with [facility] who took the patient information. Hoping they will accept in transfer as currently we have no neurology support. Increased the rate on 3% and checking Na's q6 hours. Goal is 150-155. Continue lasix therapy for now and hold dobutamine. Request ABG not for hypoxemia, monitoring of CO2. Spoke with [facility] who will review images via [facility] and then get back to me. 01/23/22: MRI. Will speak with Cards about starting dobutamine as pressure is too soft for diuresis right now and needs volume removal. Still not sure why mental status has changed. Agree with abx therapy. Could be delirious. If MRI negative, may place on scheduled haldol. Attempt to get sleep wake cycle back together as well. 1. Wean Nitro drip to off 2. Monitor for chest pain, serial EKG's if needed 3. BP control 4. Follow up Echo report Subjective Date of service: 01/24/22 Principal diagnosis: Acute STEMI Interval history: MRI showed acute infarct. Neurology consulted but did not see patient on yesterday. CVL placed and started on hypertonic saline but no improvement in sodium. Still in pulmonary edema. unable to start dobutamine secondary to tachycardia. Patient will respond to pain, does not follow commands. Objective - Constitutional Vitals: Vital Signs - 12hr 01/23/22 01/23/22 01/23/22 23:02 23:06 23:10 Temperature Pulse Rate 128 H 134 H 129 H Pulse Rate [ From Monitor] Respiratory 32 H 32 H Rate Blood Pressure 139/68 134/92 134/92 O2 Sat by Pulse 87 90 86 Oximetry 01/23/22 01/23/22 01/23/22 23:16 23:20 23:26 Temperature Pulse Rate 134 H 144 H 147 H Pulse Rate [ From Monitor] Respiratory 16 19 44 H Rate Blood Pressure 123/102 123/102 123/102 O2 Sat by Pulse 87 88 84 Oximetry 01/23/22 01/23/22 01/23/22 23:30 23:36 23:40 Temperature Pulse Rate 146 H 142 H 130 H Pulse Rate [ From Monitor] Respiratory 33 H 34 H 31 H Rate Blood Pressure 123/102 184/130 184/130 O2 Sat by Pulse 91 93 91 Oximetry 01/23/22 01/23/22 01/23/22 23:45 23:47 23:50 Temperature Pulse Rate 133 H 134 H 107 H Pulse Rate [ From Monitor] Respiratory 33 H 29 H Rate Blood Pressure 142/106 142/106 142/106 O2 Sat by Pulse 92 89 Oximetry 01/23/22 01/24/22 01/24/22 23:56 00:00 00:06 Temperature Pulse Rate 113 H 122 H 120 H Pulse Rate [ From Monitor] Respiratory 32 H 44 H 41 H Rate Blood Pressure 142/106 145/106 145/106 O2 Sat by Pulse 94 96 97 Oximetry 01/24/22 01/24/22 01/24/22 00:10 00:15 00:20 Temperature Pulse Rate 126 H 122 H 129 H Pulse Rate [ From Monitor] Respiratory 47 H 41 H 46 H Rate Blood Pressure 145/106 177/101 177/101 O2 Sat by Pulse 82 L 93 96 Oximetry 01/24/22 01/24/22 01/24/22 00:26 00:30 00:36 Temperature Pulse Rate 143 H 142 H 127 H Pulse Rate [ 145 H From Monitor] Respiratory 41 H 43 H 34 H Rate Blood Pressure 177/101 177/101 150/87 O2 Sat by Pulse 84 95 94 Oximetry 01/24/22 01/24/22 01/24/22 00:40 00:45 00:50 Temperature Pulse Rate 122 H 122 H 119 H Pulse Rate [ From Monitor] Respiratory 32 H 31 H 32 H Rate Blood Pressure 150/87 157/88 150/87 O2 Sat by Pulse 95 95 98 Oximetry 01/24/22 01/24/22 01/24/22 00:56 01:00 01:06 Temperature Pulse Rate 120 H 119 H 120 H Pulse Rate [ From Monitor] Respiratory 32 H 32 H 32 H Rate Blood Pressure 150/87 136/93 136/93 O2 Sat by Pulse 96 100 98 Oximetry 01/24/22 01/24/22 01/24/22 01:10 01:11 01:15 Temperature 99.2 F Pulse Rate 120 H 117 H Pulse Rate [ From Monitor] Respiratory 32 H 32 H Rate Blood Pressure 136/93 127/82 O2 Sat by Pulse 100 99 Oximetry 01/24/22 01/24/22 01/24/22 01:20 01:26 01:30 Temperature Pulse Rate 117 H 117 H 117 H Pulse Rate [ From Monitor] Respiratory 30 H 29 H 31 H Rate Blood Pressure 127/82 127/82 123/83 O2 Sat by Pulse 100 100 100 Oximetry 01/24/22 01/24/22 01/24/22 01:36 01:40 01:45 Temperature Pulse Rate 117 H 118 H 117 H Pulse Rate [ From Monitor] Respiratory 30 H 29 H 30 H Rate Blood Pressure 123/83 123/83 131/86 O2 Sat by Pulse 100 100 100 Oximetry 01/24/22 01/24/22 01/24/22 01:50 01:56 02:00 Temperature Pulse Rate 118 H 116 H 115 H Pulse Rate [ From Monitor] Respiratory 29 H 30 H 29 H Rate Blood Pressure 131/86 131/86 136/84 O2 Sat by Pulse 99 96 99 Oximetry 01/24/22 01/24/22 01/24/22 02:06 02:10 02:15 Temperature Pulse Rate 116 H 116 H 116 H Pulse Rate [ From Monitor] Respiratory 30 H 30 H 30 H Rate Blood Pressure 136/84 136/84 127/85 O2 Sat by Pulse 100 99 100 Oximetry 01/24/22 01/24/22 01/24/22 02:20 02:26 02:30 Temperature Pulse Rate 115 H 115 H 115 H Pulse Rate [ 113 H From Monitor] Respiratory 31 H 29 H 27 H Rate Blood Pressure 127/85 127/85 132/89 O2 Sat by Pulse 100 100 92 Oximetry 01/24/22 01/24/22 01/24/22 02:36 02:40 02:45 Temperature Pulse Rate 114 H 115 H 114 H Pulse Rate [ From Monitor] Respiratory 30 H 28 H 29 H Rate Blood Pressure 132/89 132/89 127/81 O2 Sat by Pulse 98 80 L 82 L Oximetry 01/24/22 01/24/22 01/24/22 02:50 02:56 03:00 Temperature Pulse Rate 114 H 114 H 112 H Pulse Rate [ From Monitor] Respiratory 31 H 30 H 29 H Rate Blood Pressure 127/81 127/81 122/80 O2 Sat by Pulse 98 98 93 Oximetry 01/24/22 01/24/22 01/24/22 03:06 03:10 03:15 Temperature Pulse Rate 115 H 116 H 115 H Pulse Rate [ From Monitor] Respiratory 31 H 31 H 27 H Rate Blood Pressure 122/80 122/80 142/83 O2 Sat by Pulse 100 100 100 Oximetry 01/24/22 01/24/22 01/24/22 03:20 03:26 03:29 Temperature 98.0 F Pulse Rate 117 H 118 H Pulse Rate [ From Monitor] Respiratory 31 H 33 H Rate Blood Pressure 142/83 142/83 O2 Sat by Pulse 100 100 Oximetry 01/24/22 01/24/22 01/24/22 03:30 03:36 03:40 Temperature Pulse Rate 115 H 115 H 117 H Pulse Rate [ From Monitor] Respiratory 29 H 27 H 27 H Rate Blood Pressure 145/82 145/82 145/82 O2 Sat by Pulse 100 100 100 Oximetry 01/24/22 01/24/22 01/24/22 03:45 03:50 03:56 Temperature Pulse Rate 114 H 114 H 119 H Pulse Rate [ From Monitor] Respiratory 30 H 27 H 30 H Rate Blood Pressure 146/84 146/84 145/82 O2 Sat by Pulse 100 100 100 Oximetry 01/24/22 01/24/22 01/24/22 04:00 04:06 04:10 Temperature Pulse Rate 118 H 114 H 113 H Pulse Rate [ From Monitor] Respiratory 28 H 29 H 31 H Rate Blood Pressure 152/91 152/91 152/91 O2 Sat by Pulse 100 100 100 Oximetry 01/24/22 01/24/22 01/24/22 04:15 04:20 04:26 Temperature Pulse Rate 114 H 127 H 133 H Pulse Rate [ From Monitor] Respiratory 26 H 30 H 35 H Rate Blood Pressure 161/89 161/89 161/89 O2 Sat by Pulse 100 100 90 Oximetry 01/24/22 01/24/22 01/24/22 04:30 04:36 04:40 Temperature Pulse Rate 133 H 120 H 118 H Pulse Rate [ From Monitor] Respiratory 37 H 28 H 30 H Rate Blood Pressure 161/89 153/90 153/90 O2 Sat by Pulse 93 98 96 Oximetry 01/24/22 01/24/22 01/24/22 04:45 04:50 04:56 Temperature Pulse Rate 121 H 120 H 123 H Pulse Rate [ From Monitor] Respiratory 21 22 20 Rate Blood Pressure 161/100 161/100 161/100 O2 Sat by Pulse 93 93 92 Oximetry 01/24/22 01/24/22 01/24/22 05:00 05:06 05:10 Temperature Pulse Rate 120 H 121 H 121 H Pulse Rate [ From Monitor] Respiratory 33 H 24 23 Rate Blood Pressure 169/88 169/88 169/88 O2 Sat by Pulse 90 92 96 Oximetry 01/24/22 01/24/22 01/24/22 05:15 05:20 05:26 Temperature Pulse Rate 118 H 123 H 126 H Pulse Rate [ From Monitor] Respiratory 49 H 18 39 H Rate Blood Pressure 153/92 153/92 153/92 O2 Sat by Pulse 99 97 98 Oximetry 01/24/22 01/24/22 01/24/22 05:30 05:36 05:40 Temperature Pulse Rate 120 H 121 H 120 H Pulse Rate [ From Monitor] Respiratory 43 H 43 H 52 H Rate Blood Pressure 170/91 170/91 170/91 O2 Sat by Pulse 100 98 100 Oximetry 01/24/22 01/24/22 01/24/22 05:46 05:50 05:56 Temperature Pulse Rate 137 H 126 H 128 H Pulse Rate [ From Monitor] Respiratory 31 H 30 H 20 Rate Blood Pressure 165/99 165/99 165/99 O2 Sat by Pulse 99 98 93 Oximetry 01/24/22 01/24/22 01/24/22 06:00 06:06 06:10 Temperature Pulse Rate 128 H 114 H 115 H Pulse Rate [ From Monitor] Respiratory 29 H 31 H 41 H Rate Blood Pressure 160/102 160/102 160/102 O2 Sat by Pulse 98 93 98 Oximetry 01/24/22 01/24/22 01/24/22 06:15 06:20 06:26 Temperature Pulse Rate 124 H 122 H 124 H Pulse Rate [ From Monitor] Respiratory 24 11 L 22 Rate Blood Pressure 159/97 159/97 159/97 O2 Sat by Pulse 98 99 98 Oximetry 01/24/22 01/24/22 01/24/22 06:30 06:36 06:40 Temperature Pulse Rate 121 H 121 H 122 H Pulse Rate [ From Monitor] Respiratory 23 13 19 Rate Blood Pressure 160/91 160/91 160/91 O2 Sat by Pulse 96 97 96 Oximetry 01/24/22 01/24/22 01/24/22 06:45 06:50 06:56 Temperature Pulse Rate 117 H 118 H 123 H Pulse Rate [ From Monitor] Respiratory 24 42 H 23 Rate Blood Pressure 141/86 141/86 141/86 O2 Sat by Pulse 95 97 98 Oximetry 01/24/22 01/24/22 01/24/22 07:00 07:06 07:10 Temperature Pulse Rate 123 H 125 H 126 H Pulse Rate [ From Monitor] Respiratory 22 36 H Rate Blood Pressure 163/96 163/96 163/96 O2 Sat by Pulse 98 92 85 Oximetry 01/24/22 01/24/22 01/24/22 07:15 07:20 07:24 Temperature 98.9 F Pulse Rate 124 H 126 H Pulse Rate [ From Monitor] Respiratory 17 18 Rate Blood Pressure 180/106 180/106 O2 Sat by Pulse 96 100 Oximetry 01/24/22 01/24/22 01/24/22 07:26 07:30 07:36 Temperature Pulse Rate 121 H 126 H 125 H Pulse Rate [ From Monitor] Respiratory 20 25 H 30 H Rate Blood Pressure 180/106 161/104 161/104 O2 Sat by Pulse 98 100 98 Oximetry 01/24/22 01/24/22 01/24/22 07:40 07:44 07:45 Temperature Pulse Rate 120 H 116 H 118 H Pulse Rate [ From Monitor] Respiratory 24 28 H Rate Blood Pressure 161/104 175/97 O2 Sat by Pulse 100 100 Oximetry 01/24/22 01/24/22 01/24/22 07:50 07:56 08:00 Temperature Pulse Rate 135 H 123 H 118 H Pulse Rate [ 118 H From Monitor] Respiratory 35 H 27 H 26 H Rate Blood Pressure 175/97 175/97 171/96 O2 Sat by Pulse 98 98 98 Oximetry 01/24/22 01/24/22 01/24/22 08:06 08:10 08:16 Temperature Pulse Rate 117 H 116 H 117 H Pulse Rate [ From Monitor] Respiratory 25 H 28 H 28 H Rate Blood Pressure 171/96 171/96 171/96 O2 Sat by Pulse 100 83 L 99 Oximetry 01/24/22 01/24/22 01/24/22 08:20 08:26 08:30 Temperature Pulse Rate 120 H 118 H 118 H Pulse Rate [ From Monitor] Respiratory 28 H 27 H 28 H Rate Blood Pressure 171/96 171/96 157/93 O2 Sat by Pulse 100 100 100 Oximetry 01/24/22 01/24/22 01/24/22 08:34 08:36 08:40 Temperature Pulse Rate 122 H 120 H Pulse Rate [ From Monitor] Respiratory 29 H 27 H Rate Blood Pressure 157/93 157/93 O2 Sat by Pulse 100 100 100 Oximetry 01/24/22 01/24/22 01/24/22 08:46 08:50 08:56 Temperature Pulse Rate 116 H 117 H 121 H Pulse Rate [ From Monitor] Respiratory 27 H 27 H 27 H Rate Blood Pressure 157/93 157/93 157/93 O2 Sat by Pulse 100 100 100 Oximetry 01/24/22 01/24/22 01/24/22 09:00 09:06 09:10 Temperature Pulse Rate 118 H 118 H 119 H Pulse Rate [ From Monitor] Respiratory 28 H 27 H 26 H Rate Blood Pressure 165/96 157/93 157/93 O2 Sat by Pulse 100 100 100 Oximetry 01/24/22 01/24/22 01/24/22 09:16 09:20 09:26 Temperature Pulse Rate 118 H 120 H 119 H Pulse Rate [ From Monitor] Respiratory 27 H 27 H 28 H Rate Blood Pressure 157/93 157/93 157/93 O2 Sat by Pulse 100 100 100 Oximetry 01/24/22 01/24/22 01/24/22 09:30 09:36 09:40 Temperature Pulse Rate 117 H 120 H 137 H Pulse Rate [ From Monitor] Respiratory 26 H 28 H 35 H Rate Blood Pressure 177/81 177/81 177/81 O2 Sat by Pulse 100 100 99 Oximetry 01/24/22 01/24/22 01/24/22 09:46 09:50 09:56 Temperature Pulse Rate 138 H 137 H 134 H Pulse Rate [ From Monitor] Respiratory 35 H 36 H 40 H Rate Blood Pressure 177/81 177/81 177/81 O2 Sat by Pulse 98 95 100 Oximetry 01/24/22 01/24/22 01/24/22 10:00 10:06 10:10 Temperature Pulse Rate 133 H 137 H 131 H Pulse Rate [ From Monitor] Respiratory 27 H 24 28 H Rate Blood Pressure 169/103 169/103 169/103 O2 Sat by Pulse 98 99 99 Oximetry 01/24/22 01/24/22 01/24/22 10:16 10:20 10:26 Temperature Pulse Rate 123 H 126 H 122 H Pulse Rate [ From Monitor] Respiratory 27 H 31 H 27 H Rate Blood Pressure 169/103 169/103 169/103 O2 Sat by Pulse 100 100 100 Oximetry - Labs CBC & Chem 7: 01/24/22 03:15 01/24/22 07:47 Labs: Abnormal lab results 01/23/22 01/23/22 01/23/22 Range/Units 07:26 11:34 11:39 WBC (4.5-11.0) K/mm3 MCV (79-97) fl MCH (28-32) pg RDW (13.2-15.2) % Chloride (98-107) mmol/L Carbon Dioxide (22-30) mmol/L BUN (7-17) mg/dL Glucose (65-100) mg/dL POC Glucose 177 H 130 H 132 H (70-105) mg/dL Lactic Acid (0.7-2.0) mmol/L Calcium (8.4-10.2) mg/dL AST (5-40) units/L ALT (7-56) units/L Total Creatine Kinase (30-135) units/L CK-MB (CK-2) (0.0-4.0) ng/mL Troponin T (0.00-0.029) ng/mL C-Reactive Protein (0.00-1.30) mg/dL Albumin (3.9-5) g/dL 01/23/22 01/23/22 01/23/22 Range/Units 18:52 18:52 18:52 WBC (4.5-11.0) K/mm3 MCV (79-97) fl MCH (28-32) pg RDW (13.2-15.2) % Chloride (98-107) mmol/L Carbon Dioxide 21 L (22-30) mmol/L BUN 31 H (7-17) mg/dL Glucose 114 H (65-100) mg/dL POC Glucose (70-105) mg/dL Lactic Acid 2.50 H* (0.7-2.0) mmol/L Calcium (8.4-10.2) mg/dL AST (5-40) units/L ALT (7-56) units/L Total Creatine Kinase (30-135) units/L CK-MB (CK-2) (0.0-4.0) ng/mL Troponin T (0.00-0.029) ng/mL C-Reactive Protein 17.00 H (0.00-1.30) mg/dL Albumin (3.9-5) g/dL 01/23/22 01/23/22 01/24/22 Range/Units 20:54 22:12 00:08 WBC (4.5-11.0) K/mm3 MCV (79-97) fl MCH (28-32) pg RDW (13.2-15.2) % Chloride (98-107) mmol/L Carbon Dioxide (22-30) mmol/L BUN 30 H (7-17) mg/dL Glucose 159 H (65-100) mg/dL POC Glucose 116 H (70-105) mg/dL Lactic Acid (0.7-2.0) mmol/L Calcium 8.0 L (8.4-10.2) mg/dL AST (5-40) units/L ALT (7-56) units/L Total Creatine Kinase 1650 H (30-135) units/L CK-MB (CK-2) 38.7 H (0.0-4.0) ng/mL Troponin T 9.970 H* D (0.00-0.029) ng/mL C-Reactive Protein (0.00-1.30) mg/dL Albumin (3.9-5) g/dL 01/24/22 01/24/22 01/24/22 Range/Units 03:15 03:15 05:12 WBC 13.0 H (4.5-11.0) K/mm3 MCV 78 L (79-97) fl MCH 24 L (28-32) pg RDW 17.3 H (13.2-15.2) % Chloride 108.7 H (98-107) mmol/L Carbon Dioxide (22-30) mmol/L BUN 29 H (7-17) mg/dL Glucose 150 H (65-100) mg/dL POC Glucose 144 H (70-105) mg/dL Lactic Acid (0.7-2.0) mmol/L Calcium 7.8 L (8.4-10.2) mg/dL AST 132 H (5-40) units/L ALT 59 H (7-56) units/L Total Creatine Kinase (30-135) units/L CK-MB (CK-2) (0.0-4.0) ng/mL Troponin T (0.00-0.029) ng/mL C-Reactive Protein (0.00-1.30) mg/dL Albumin 3.1 L (3.9-5) g/dL 01/24/22 01/24/22 Range/Units 07:32 07:47 WBC (4.5-11.0) K/mm3 MCV (79-97) fl MCH (28-32) pg RDW (13.2-15.2) % Chloride 109.1 H (98-107) mmol/L Carbon Dioxide (22-30) mmol/L BUN 25 H (7-17) mg/dL Glucose 131 H (65-100) mg/dL POC Glucose 126 H (70-105) mg/dL Lactic Acid (0.7-2.0) mmol/L Calcium 7.9 L (8.4-10.2) mg/dL AST (5-40) units/L ALT (7-56) units/L Total Creatine Kinase (30-135) units/L CK-MB (CK-2) (0.0-4.0) ng/mL Troponin T (0.00-0.029) ng/mL C-Reactive Protein (0.00-1.30) mg/dL Albumin (3.9-5) g/dL Medications & Allergies - Medications Allergies/Adverse Reactions: Allergies No Known Allergies Allergy (Verified 01/21/22 23:36) Home Medications: Home Medications Medication Instructions Recorded Confirmed Last Taken Type No Known Home Medications [No 01/24/22 01/24/22 Unknown History Reported Home Medications] Active Medications: Generic Name Dose Route Start Last Admin Trade Name Freq PRN Reason Stop Dose Admin Acetaminophen 650 mg 01/21/22 23:35 01/23/22 15:38 Acetaminophen 325 Mg Tab PO 650 mg Q6H PRN Administration Pain, Mild (1-3) Aspirin 81 mg 01/25/22 10:00 Aspirin 81 Mg Tab Chew FEEDTUBE QDAY IVETTE Atorvastatin Calcium 40 mg 01/23/22 22:00 01/23/22 23:10 Atorvastatin 40 Mg Tab FEEDTUBE 40 mg QHS IVETTE Administration Clopidogrel Bisulfate 75 mg 01/23/22 14:00 01/24/22 09:10 Clopidogrel 75 Mg Tab FEEDTUBE 75 mg QDAY IVETTE Administration Dextrose 50 ml 01/21/22 23:35 Dextrose 50% In Water (25gm) 50 Ml Syringe IV Q30MIN PRN Hypoglycemia Protocol Docusate Sodium 100 mg 01/23/22 22:00 01/24/22 09:10 Docusate Sodium 100 Mg/10 Ml Oral Liqd FEEDTUBE 100 mg BID IVETTE Administration Famotidine 40 mg 01/23/22 22:00 01/23/22 23:09 Famotidine 20 Mg Tab FEEDTUBE 40 mg QHS IVETTE Administration Furosemide 40 mg 01/24/22 10:00 01/24/22 09:14 Furosemide 40 Mg/4 Ml Inj IV 40 mg BID IVETTE Administration Haloperidol Lactate 5 mg 01/23/22 10:21 01/24/22 05:41 Haloperidol Lactate 5 Mg/1 Ml Inj IV 5 mg Q6HR PRN Administration Agitation Hydralazine HCl 10 mg 01/22/22 17:08 01/22/22 17:19 Hydralazine 20 Mg/1 Ml Inj IV 10 mg Q4HR PRN Administration Hypertension Dexmedetomidine HCl 200 mcg/ 50 mls @ 3.856 mls/hr 01/23/22 01:09 01/23/22 08:57 Sodium Chloride IV 0 mcg/kg/hr TITRATE IVETTE 0 mls/hr Titration Protocol 0.2 MCG/KG/HR Ceftriaxone Sodium 2 gm in 100 mls @ 200 mls/hr 01/23/22 09:00 01/24/22 10:45 Rocephin/Ns 2 Gm/100 Ml IV Infused Q24H IVETTE Infusion Protocol Dobutamine HCl/Dextrose 500 mg in 250 mls @ 5.783 mls/hr 01/23/22 11:00 01/23/22 14:00 Dobutrex Drip 500mg/D5w 250ml IV 0 mcg/kg/min DIRECT IVETTE 0 mls/hr Infusion Protocol 2.5 MCG/KG/MIN Azithromycin 500 mg in 250 mls @ 250 mls/hr 01/24/22 11:00 01/24/22 10:05 Zithromax/Ns IV 250 mls/hr Q24H IVETTE Administration Sodium Chloride 500 mls @ 40 mls/hr 01/24/22 11:00 Nacl 3% IV DIRECT IVETTE Insulin Human Lispro 0 unit 01/24/22 12:00 Insulin Lispro 100 Unit/Ml SUB-Q Q6HR IVETTE Protocol Lorazepam 1 mg 01/23/22 10:21 01/24/22 07:40 Lorazepam 2 Mg/Ml Vial IV 1 mg Q4HR PRN Administration Agitation Morphine Sulfate 2 mg 01/21/22 23:35 01/24/22 04:30 Morphine 4 Mg/1 Ml Inj IV 2 mg Q5MIN PRN Administration Chest Pain unrelieved by NTG Nitroglycerin 0.4 mg 01/21/22 23:35 01/22/22 09:16 Nitroglycerin 0.4 Mg Tab Subl SL 0.4 mg Q5M PRN Administration Chest Pain Ondansetron HCl 4 mg 01/22/22 10:02 01/22/22 10:18 Ondansetron 4 Mg/2 Ml Inj IV 4 mg Q4H PRN Administration Nausea And Vomiting Sodium Chloride 10 ml 01/21/22 23:35 01/24/22 09:11 Sodium Chloride 0.9% 10 Ml Flush Syringe IV 10 ml PRN PRN Administration LINE FLUSH Tramadol HCl 50 mg 01/21/22 23:35 Tramadol 50 Mg Tab PO Q6H PRN Pain, Moderate (4-6) HEART Score - HEART Score EKG: Significant ST-depression Age: 45-65 Risk factors: 1-2 risk factors Troponin: Troponin T 9.970 ng/mL (0.00-0.029) H* D 01/23/22 20:54 Troponin: > 3x normal limit - Critical Actions Critical Actions: >7 pts:50-65% risk of adverse cardiac event. Early invasive measures
[2022-01-24 11:42] LABS: ABG HCO3 25.9 mmol/L (20.0-26.0); ABG Methemoglobin 0.5 % (0.0-1.5); ABG Oxygen Saturation 96.7 % (95.0-99.0); ABG PCO2 42.5 mm Hg; ABG PH 7.402 pH Units (7.350-7.450); ABG PO2 82.9 mm Hg (80.0-90.0)
--- NOTE | 2022-01-24 12:17 | Progress Note ---
Hospitalist Physical - Constitutional Vitals: Temp Pulse Resp BP Pulse Ox 98.3 F 123 H 26 H 150/92 100 01/24/22 11:52 01/24/22 11:00 01/24/22 11:00 01/24/22 11:00 01/24/22 11:00 General appearance: Present: mild distress, obese HEART Score - HEART Score EKG: Significant ST-depression Age: 45-65 Risk factors: 1-2 risk factors Troponin: Troponin T 9.970 ng/mL (0.00-0.029) H* D 01/23/22 20:54 Troponin: > 3x normal limit - Critical Actions Critical Actions: >7 pts:50-65% risk of adverse cardiac event. Early invasive measures Results - Labs CBC & Chem 7: 01/24/22 03:15 01/24/22 07:47 Labs: Laboratory Last Values WBC 13.0 K/mm3 (4.5-11.0) H 01/24/22 03:15 RBC 4.88 M/mm3 (3.65-5.03) 01/24/22 03:15 Hgb 11.8 gm/dl (10.1-14.3) 01/24/22 03:15 Hct 37.9 % (30.3-42.9) 01/24/22 03:15 MCV 78 fl (79-97) L 01/24/22 03:15 MCH 24 pg (28-32) L 01/24/22 03:15 MCHC 31 % (30-34) 01/24/22 03:15 RDW 17.3 % (13.2-15.2) H 01/24/22 03:15 Plt Count 187 K/mm3 (140-440) 01/24/22 03:15 Lymph % (Auto) 12.5 % (13.4-35.0) L 01/23/22 04:14 Swisher % (Auto) 6.8 % (0.0-7.3) 01/23/22 04:14 Eos % (Auto) 0.1 % (0.0-4.3) 01/23/22 04:14 Baso % (Auto) 0.5 % (0.0-1.8) 01/23/22 04:14 Lymph # (Auto) 2.0 K/mm3 (1.2-5.4) 01/23/22 04:14 Swisher # (Auto) 1.1 K/mm3 (0.0-0.8) H 01/23/22 04:14 Eos # (Auto) 0.0 K/mm3 (0.0-0.4) 01/23/22 04:14 Baso # (Auto) 0.1 K/mm3 (0.0-0.1) 01/23/22 04:14 Seg Neutrophils % 80.1 % (40.0-70.0) H 01/23/22 04:14 Seg Neutrophils # 12.8 K/mm3 (1.8-7.7) H 01/23/22 04:14 PT 13.4 Sec. (12.2-14.9) 01/21/22 23:19 INR 0.92 (0.87-1.13) 01/21/22 23:19 APTT 27.5 Sec. (24.2-36.6) 01/21/22 23:19 ABG pH 7.402 pH Units (7.350-7.450) 01/24/22 11:00 ABG pCO2 42.5 mm Hg 01/24/22 11:00 ABG pO2 82.9 mm Hg (80.0-90.0) 01/24/22 11:00 ABG HCO3 25.9 mmol/L (20.0-26.0) 01/24/22 11:00 ABG O2 Saturation 96.7 % (95.0-99.0) 01/24/22 11:00 ABG O2 Content 16.5 (0.0-44) 01/24/22 11:00 ABG Base Excess 1.0 mmol/L (-2.0-3.0) 01/24/22 11:00 ABG Hemoglobin 12.3 gm/dl (12.0-16.0) 01/24/22 11:00 ABG Carboxyhemoglobin 1.3 % (0.0-5.0) 01/24/22 11:00 ABG Methemoglobin 0.5 % (0.0-1.5) 01/24/22 11:00 Oxyhemoglobin 95.0 % (95.0-99.0) 01/24/22 11:00 FiO2 50 % 01/24/22 11:00 Sodium 143 mmol/L (137-145) 01/24/22 07:47 Potassium 3.8 mmol/L (3.6-5.0) 01/24/22 07:47 Chloride 109.1 mmol/L (98-107) H 01/24/22 07:47 Carbon Dioxide 26 mmol/L (22-30) 01/24/22 07:47 Anion Gap 12 mmol/L 01/24/22 07:47 BUN 25 mg/dL (7-17) H 01/24/22 07:47 Creatinine 0.8 mg/dL (0.6-1.2) 01/24/22 07:47 Estimated GFR > 60 ml/min 01/24/22 07:47 BUN/Creatinine Ratio 31 % 01/24/22 07:47 Glucose 131 mg/dL (65-100) H 01/24/22 07:47 POC Glucose 126 mg/dL (70-105) H 01/24/22 07:32 Hemoglobin A1c 7.7 % (4-6) H 01/21/22 23:19 Lactic Acid 1.70 mmol/L (0.7-2.0) 01/24/22 00:08 Calcium 7.9 mg/dL (8.4-10.2) L 01/24/22 07:47 Phosphorus 2.90 mg/dL (2.5-4.5) 01/24/22 03:15 Magnesium 2.20 mg/dL (1.7-2.3) 01/24/22 03:15 Total Bilirubin 0.40 mg/dL (0.1-1.2) 01/24/22 03:15 AST 132 units/L (5-40) H 01/24/22 03:15 ALT 59 units/L (7-56) H 01/24/22 03:15 Alkaline Phosphatase 84 units/L (35-129) 01/24/22 03:15 Ammonia 39.0 umol/L (25-60) 01/23/22 18:52 Total Creatine Kinase 1650 units/L (30-135) H 01/23/22 20:54 CK-MB (CK-2) 38.7 ng/mL (0.0-4.0) H 01/23/22 20:54 CK-MB (CK-2) Rel Index 2.3 (0-4) 01/23/22 20:54 Troponin T 9.970 ng/mL (0.00-0.029) H* D 01/23/22 20:54 C-Reactive Protein 17.00 mg/dL (0.00-1.30) H 01/23/22 18:52 Total Protein 6.6 g/dL (6.3-8.2) 01/24/22 03:15 Albumin 3.1 g/dL (3.9-5) L 01/24/22 03:15 Albumin/Globulin Ratio 0.9 % 01/24/22 03:15 Triglycerides 203 mg/dL (2-149) H 01/21/22 23:19 Cholesterol 328 mg/dL (50-199) H 01/21/22 23:19 LDL Cholesterol Direct 246 mg/dL (50-130) H 01/21/22 23:19 HDL Cholesterol 47 mg/dL (40-59) 01/21/22 23:19 Cholesterol/HDL Ratio 6.97 % 01/21/22 23:19 Procalcitonin 0.63 ng/mL (<0.15) 01/23/22 18:52 Urine Color Yellow (Yellow) 01/22/22 22:30 Urine Turbidity Clear (Clear) 01/22/22 22:30 Specific Stephen (Man) 1.020 (1.003-1.030) 01/22/22 22:30 Ur Protein (Man) 3+ mg/dL (Negative) 01/22/22 22:30 Ur Ketones (Man) Negative (Negative) 01/22/22 22:30 Ur Nitrite (Man) Negative (Negative) 01/22/22 22:30 Urine Bilirubin (Man) Small (Negative) 01/22/22 22:30 Urine Ictotest Negative (Negative) 01/22/22 22:30 Leukocyte Esterase (Man) Negative (Negative) 01/22/22 22:30 Urine WBC (Auto) 4.0 /HPF (0.0-6.0) 01/22/22 22:30 Urine RBC (Auto) < 1.0 /HPF (0.0-6.0) 01/22/22 22:30 U Epithel Cells (Auto) 5.0 /HPF (0-13.0) 01/22/22 22:30 Urine Bacteria (Auto) 2+ /HPF (Negative) 01/22/22 22:30 Urine RBC (Manual) Negative (Negative) 01/22/22 22:30 Urine Mucus Few /HPF 01/22/22 22:30 Urine Osmolality 704 Mosm/kg 01/24/22 07:52 Urine Sodium 106 mmol/L 01/24/22 07:52 SARS-CoV-2 (PCR) Negative (Negative) 01/23/22 15:05 Blood Type O POSITIVE 01/21/22 23:19 Antibody Screen Negative 01/21/22 23:19 Microbiology: Microbiology 01/23/22 15:55 Peripheral/Venous Blood Culture - Preliminary Culture in Progress 01/23/22 15:55 Peripheral/Venous Blood Culture - Preliminary Culture in Progress Alvarez/IV: Voiding Method Indwelling Catheter Active Medications - Current Medications Current Medications: Generic Name Dose Route Start Last Admin Trade Name Freq PRN Reason Stop Dose Admin Acetaminophen 650 mg 01/21/22 23:35 01/23/22 15:38 Acetaminophen 325 Mg Tab PO 650 mg Q6H PRN Administration Pain, Mild (1-3) Aspirin 81 mg 01/25/22 10:00 Aspirin 81 Mg Tab Chew FEEDTUBE QDAY IVETTE Atorvastatin Calcium 40 mg 01/23/22 22:00 01/23/22 23:10 Atorvastatin 40 Mg Tab FEEDTUBE 40 mg QHS IVETTE Administration Clopidogrel Bisulfate 75 mg 01/23/22 14:00 01/24/22 09:10 Clopidogrel 75 Mg Tab FEEDTUBE 75 mg QDAY IVETTE Administration Dextrose 50 ml 01/21/22 23:35 Dextrose 50% In Water (25gm) 50 Ml Syringe IV Q30MIN PRN Hypoglycemia Protocol Docusate Sodium 100 mg 01/23/22 22:00 01/24/22 09:10 Docusate Sodium 100 Mg/10 Ml Oral Liqd FEEDTUBE 100 mg BID IVETTE Administration Famotidine 40 mg 01/23/22 22:00 01/23/22 23:09 Famotidine 20 Mg Tab FEEDTUBE 40 mg QHS IVETTE Administration Furosemide 40 mg 01/24/22 10:00 01/24/22 09:14 Furosemide 40 Mg/4 Ml Inj IV 40 mg BID IVETTE Administration Haloperidol Lactate 5 mg 01/23/22 10:21 01/24/22 05:41 Haloperidol Lactate 5 Mg/1 Ml Inj IV 5 mg Q6HR PRN Administration Agitation Hydralazine HCl 10 mg 01/22/22 17:08 01/22/22 17:19 Hydralazine 20 Mg/1 Ml Inj IV 10 mg Q4HR PRN Administration Hypertension Dexmedetomidine HCl 200 mcg/ 50 mls @ 3.856 mls/hr 01/23/22 01:09 01/23/22 08:57 Sodium Chloride IV 0 mcg/kg/hr TITRATE IVETTE 0 mls/hr Titration Protocol 0.2 MCG/KG/HR Ceftriaxone Sodium 2 gm in 100 mls @ 200 mls/hr 01/23/22 09:00 01/24/22 10:45 Rocephin/Ns 2 Gm/100 Ml IV Infused Q24H IVETTE Infusion Protocol Dobutamine HCl/Dextrose 500 mg in 250 mls @ 5.783 mls/hr 01/23/22 11:00 14:00 Dobutrex Drip 500mg/D5w 250ml IV 0 mcg/kg/min DIRECT IVETTE 0 mls/hr Infusion Protocol 2.5 MCG/KG/MIN Azithromycin 500 mg in 250 mls @ 250 mls/hr 01/24/22 11:00 01/24/22 10:05 Zithromax/Ns IV 250 mls/hr Q24H IVETTE Administration Sodium Chloride 500 mls @ 40 mls/hr 01/24/22 11:00 Nacl 3% IV DIRECT IVETTE Insulin Human Lispro 0 unit 01/24/22 12:00 01/24/22 11:57 Insulin Lispro 100 Unit/Ml SUB-Q Not Given Q6HR IVETTE Protocol Lorazepam 1 mg 01/23/22 10:21 01/24/22 07:40 Lorazepam 2 Mg/Ml Vial IV 1 mg Q4HR PRN Administration Agitation Morphine Sulfate 2 mg 01/21/22 23:35 01/24/22 04:30 Morphine 4 Mg/1 Ml Inj IV 2 mg Q5MIN PRN Administration Chest Pain unrelieved by NTG Nitroglycerin 0.4 mg 01/21/22 23:35 01/22/22 09:16 Nitroglycerin 0.4 Mg Tab Subl SL 0.4 mg Q5M PRN Administration Chest Pain Ondansetron HCl 4 mg 01/22/22 10:02 01/22/22 10:18 Ondansetron 4 Mg/2 Ml Inj IV 4 mg Q4H PRN Administration Nausea And Vomiting Sodium Chloride 10 ml 01/21/22 23:35 01/24/22 09:11 Sodium Chloride 0.9% 10 Ml Flush Syringe IV 10 ml PRN PRN Administration LINE FLUSH Tramadol HCl 50 mg 01/21/22 23:35 Tramadol 50 Mg Tab PO Q6H PRN Pain, Moderate (4-6) Nutrition/Malnutrition Assess - Dietary Evaluation Nutrition/Malnutrition Findings: Nutrition Notes Start: 01/22/22 09: 19 Freq: Status: Active Protocol: Document 01/23/22 14:06 KENDRA (Rec: 01/23/22 14:11 [facility] [id number]) Nutrition Notes Initial or Follow up Assessment Current Diagnosis Diabetes,Respiratory Failure Other Pertinent Diagnosis STEMI, acute metabolic encephalopathy Current Diet Cardiac/Consistent CHO Labs/Tests K 6 BUN 26 BG 156 Pertinent Medications Dobutamine gtt, Colace, Lasix Height 5 ft 5 in Weight 77.11 kg Sherrill Body Weight (kg) 56.81 BMI 28.3 Weight Status Overweight Subjective/Other Information Pt with change in mental status. MD order DHT placement; no TF consult received yet. Burn Absent Trauma Absent Minimum of two criteria No #1 Nutrition Diagnosis Inadequate oral intake Etiology change in mental status As Evidenced by Signs and Symptoms MD ordered DHT placement Is patient on ventilator? No Is Patient Ambulatory and/or Out of Bed No REE-([facility]-confined to bed) [phone] Calculation Used for Recommendations [facility] Additional Notes Pro needs 1.2-2g/k-154g/ day Fluid needs 1ml/kcal Nutrition Intervention Nutrition Support: Recommend Nepro at 35ml/hr if EN support necessary Goal #1 PO tolerance Goal #2 Start EN support if PO intake remains suboptimal Follow-Up By: 01/24/22 Additional Comments F/U: TF consult, renal function
--- NOTE | 2022-01-24 13:01 | Progress Note ---
Assessment and Plan - Patient Problems (1) STEMI (ST elevation myocardial infarction) Current Visit: Yes Status: Acute Plan to address problem: Patient is status post successful primary angioplasty and stenting of the LAD following an acute anterolateral STEMI. Initial post MO clinically stable and alert and oriented, but 24 hours following intervention developed mild alteration in mental status, which has progressed. In addition to the possible CVA, there is development of acute bilateral patchy pulmonary infiltrates, greater on the right, differential diagnosis acute pneumonia versus cardiogenic pulmonary edema. Patient's COVID-19 test is negative. Continue antibiotics, supportive management, diuretics, await neurological input. Prognosis is guarded. Subjective Date of service: 01/24/22 Principal diagnosis: Acute STEMI Interval history: Patient is somnolent, sleepy, with an NG tube. Arouses to touch. No acute respiratory distress. Further MRI evaluation reports a possible acute CVA, neurological assessment is pending. On engine monitor, there is sinus tachycardia at 120. Objective Vital Signs Temp Pulse Pulse Resp BP Pulse Ox 01/24/22 12:30 122 H 27 H 169/98 99 01/24/22 12:00 128 H 126 H 27 H 153/104 100 01/24/22 11:52 98.3 F 01/24/22 11:30 118 H 28 H 163/81 100 01/24/22 11:00 123 H 26 H 150/92 100 01/24/22 10:30 126 H 26 H 160/96 100 01/24/22 10:26 122 H 27 H 169/103 100 01/24/22 10:20 126 H 31 H 169/103 100 01/24/22 10:16 123 H 27 H 169/103 100 01/24/22 10:10 131 H 28 H 169/103 99 01/24/22 10:06 137 H 24 169/103 99 01/24/22 10:00 133 H 27 H 169/103 98 01/24/22 09:56 134 H 40 H 177/81 100 01/24/22 09:50 137 H 36 H 177/81 95 01/24/22 09:46 138 H 35 H 177/81 98 01/24/22 09:40 137 H 35 H 177/81 99 01/24/22 09:36 120 H 28 H 177/81 100 01/24/22 09:30 117 H 26 H 177/81 100 01/24/22 09:26 119 H 28 H 157/93 100 01/24/22 09:20 120 H 27 H 157/93 100 01/24/22 09:16 118 H 27 H 157/93 100 01/24/22 09:10 119 H 26 H 157/93 100 01/24/22 09:06 118 H 27 H 157/93 100 01/24/22 09:00 118 H 28 H 165/96 100 01/24/22 08:56 121 H 27 H 157/93 100 01/24/22 08:50 117 H 27 H 157/93 100 01/24/22 08:46 116 H 27 H 157/93 100 01/24/22 08:40 120 H 27 H 157/93 100 01/24/22 08:36 122 H 29 H 157/93 100 01/24/22 08:34 100 01/24/22 08:30 118 H 28 H 157/93 100 01/24/22 08:26 118 H 27 H 171/96 100 01/24/22 08:20 120 H 28 H 171/96 100 01/24/22 08:16 117 H 28 H 171/96 99 01/24/22 08:10 116 H 28 H 171/96 83 L 01/24/22 08:06 117 H 25 H 171/96 100 01/24/22 08:00 118 H 118 H 26 H 171/96 98 01/24/22 07:56 123 H 27 H 175/97 98 01/24/22 07:50 135 H 35 H 175/97 98 01/24/22 07:45 118 H 28 H 175/97 100 01/24/22 07:44 116 H 01/24/22 07:40 120 H 24 161/104 100 01/24/22 07:36 125 H 30 H 161/104 98 01/24/22 07:30 126 H 25 H 161/104 100 01/24/22 07:26 121 H 20 180/106 98 01/24/22 07:24 98.9 F 01/24/22 07:20 126 H 18 180/106 100 01/24/22 07:15 124 H 17 180/106 96 01/24/22 07:10 126 H 163/96 85 01/24/22 07:06 125 H 36 H 163/96 92 01/24/22 07:00 123 H 22 163/96 98 08/30/22 06:56 123 H 23 141/86 98 01/24/22 06:50 118 H 42 H 141/86 97 01/24/22 06:45 117 H 24 141/86 95 01/24/22 06:40 122 H 19 160/91 96 01/24/22 06:36 121 H 13 160/91 97 01/24/22 06:30 121 H 23 160/91 96 01/24/22 06:26 124 H 22 159/97 98 01/24/22 06:20 122 H 11 L 159/97 99 01/24/22 06:15 124 H 24 159/97 98 01/24/22 06:10 115 H 41 H 160/102 98 01/24/22 06:06 114 H 31 H 160/102 93 01/24/22 06:00 128 H 29 H 160/102 98 01/24/22 05:56 128 H 20 165/99 93 01/24/22 05:50 126 H 30 H 165/99 98 01/24/22 05:46 137 H 31 H 165/99 99 01/24/22 05:40 120 H 52 H 170/91 100 01/24/22 05:36 121 H 43 H 170/91 98 01/24/22 05:30 120 H 43 H 170/91 100 01/24/22 05:26 126 H 39 H 153/92 98 01/24/22 05:20 123 H 18 153/92 97 01/24/22 05:15 118 H 49 H 153/92 99 01/24/22 05:10 121 H 23 169/88 96 01/24/22 05:06 121 H 24 169/88 92 01/24/22 05:00 120 H 33 H 169/88 90 01/24/22 04:56 123 H 20 161/100 92 01/24/22 04:50 120 H 22 161/100 93 01/24/22 04:45 121 H 21 161/100 93 01/24/22 04:40 118 H 30 H 153/90 96 01/24/22 04:36 120 H 28 H 153/90 98 01/24/22 04:30 133 H 37 H 161/89 93 01/24/22 04:26 133 H 35 H 161/89 90 01/24/22 04:20 127 H 30 H 161/89 100 01/24/22 04:15 114 H 26 H 161/89 100 01/24/22 04:10 113 H 31 H 152/91 100 01/24/22 04:06 114 H 29 H 152/91 100 01/24/22 04:00 118 H 28 H 152/91 100 01/24/22 03:56 119 H 30 H 145/82 100 01/24/22 03:50 114 H 27 H 146/84 100 01/24/22 03:45 114 H 30 H 146/84 100 01/24/22 03:40 117 H 27 H 145/82 100 01/24/22 03:36 115 H 27 H 145/82 100 01/24/22 03:30 115 H 29 H 145/82 100 01/24/22 03:29 98.0 F 01/24/22 03:26 118 H 33 H 142/83 100 01/24/22 03:20 117 H 31 H 142/83 100 01/24/22 03:15 115 H 27 H 142/83 100 01/24/22 03:10 116 H 31 H 122/80 100 01/24/22 03:06 115 H 31 H 122/80 100 01/24/22 03:00 112 H 29 H 122/80 93 01/24/22 02:56 114 H 30 H 127/81 98 01/24/22 02:50 114 H 31 H 127/81 98 01/24/22 02:45 114 H 29 H 127/81 82 L 01/24/22 02:40 115 H 28 H 132/89 80 L 01/24/22 02:36 114 H 30 H 132/89 98 01/24/22 02:30 115 H 113 H 27 H 132/89 92 01/24/22 02:26 115 H 29 H 127/85 100 01/24/22 02:20 115 H 31 H 127/85 100 01/24/22 02:15 116 H 30 H 127/85 100 01/24/22 02:10 116 H 30 H 136/84 99 01/24/22 02:06 116 H 30 H 136/84 100 01/24/22 02:00 115 H 29 H 136/84 99 01/24/22 01:56 116 H 30 H 131/86 96 01/24/22 01:50 118 H 29 H 131/86 99 01/24/22 01:45 117 H 30 H 131/86 100 01/24/22 01:40 118 H 29 H 123/83 100 01/24/22 01:36 117 H 30 H 123/83 100 01/24/22 01:30 117 H 31 H 123/83 100 01/24/22 01:26 117 H 29 H 127/82 100 01/24/22 01:20 117 H 30 H 127/82 100 01/24/22 01:15 117 H 32 H 127/82 99 01/24/22 01:11 99.2 F 01/24/22 01:10 120 H 32 H 136/93 100 01/24/22 01:06 120 H 32 H 136/93 98 01/24/22 01:00 119 H 32 H 136/93 100 01/24/22 00:56 120 H 32 H 150/87 96 01/24/22 00:50 119 H 32 H 150/87 98 01/24/22 00:45 122 H 31 H 157/88 95 01/24/22 00:40 122 H 32 H 150/87 95 01/24/22 00:36 127 H 34 H 150/87 94 01/24/22 00:30 142 H 145 H 43 H 177/101 95 01/24/22 00:26 143 H 41 H 177/101 84 01/24/22 00:20 129 H 46 H 177/101 96 01/24/22 00:15 122 H 41 H 177/101 93 01/24/22 00:10 126 H 47 H 145/106 82 L 01/24/22 00:06 120 H 41 H 145/106 97 01/24/22 00:00 122 H 44 H 145/106 96 01/23/22 23:56 113 H 32 H 142/106 94 01/23/22 23:50 107 H 29 H 142/106 89 01/23/22 23:47 134 H 142/106 01/23/22 23:45 133 H 33 H 142/106 92 01/23/22 23:40 130 H 31 H 184/130 91 01/23/22 23:36 142 H 34 H 184/130 93 01/23/22 23:30 146 H 33 H 123/102 91 01/23/22 23:26 147 H 44 H 123/102 84 01/23/22 23:20 144 H 19 123/102 88 01/23/22 23:16 134 H 16 123/102 87 01/23/22 23:10 129 H 32 H 134/92 86 01/23/22 23:06 134 H 32 H 134/92 90 01/23/22 23:02 128 H 139/68 87 01/23/22 22:20 139/68 99 01/23/22 22:15 116 H 25 H 139/68 100 01/23/22 22:10 122 H 28 H 142/82 100 01/23/22 22:06 120 H 27 H 142/82 100 01/23/22 22:00 111 H 25 H 142/82 01/23/22 21:56 110 H 25 H 129/71 100 01/23/22 21:50 111 H 24 129/71 01/23/22 21:45 110 H 24 129/71 01/23/22 21:40 109 H 27 H 134/77 01/23/22 21:36 111 H 23 134/77 01/23/22 21:30 111 H 24 134/77 01/23/22 21:26 113 H 24 137/87 01/23/22 21:20 116 H 26 H 137/87 01/23/22 21:15 112 H 25 H 122/73 01/23/22 21:10 112 H 25 H 137/87 01/23/22 21:06 112 H 24 137/87 01/23/22 21:00 115 H 21 137/87 01/23/22 20:56 113 H 25 H 119/78 01/23/22 20:50 111 H 27 H 119/78 01/23/22 20:45 113 H 40 H 119/78 01/23/22 20:40 109 H 25 H 124/78 01/23/22 20:36 110 H 24 124/78 100 01/23/22 20:30 110 H 25 H 124/78 01/23/22 20:26 113 H 33 H 126/72 01/23/22 20:20 112 H 26 H 126/72 01/23/22 20:15 113 H 25 H 126/72 01/23/22 20:10 113 H 113 H 25 H 115/71 01/23/22 20:06 112 H 24 115/71 100 01/23/22 20:05 99.2 F 01/23/22 20:00 100.2 F H 111 H 34 H 115/71 100 01/23/22 19:56 111 H 22 113/67 100 01/23/22 19:55 100 01/23/22 19:50 112 H 50 H 113/67 100 01/23/22 19:45 115 H 51 H 113/67 100 01/23/22 19:40 117 H 13 115/77 01/23/22 19:36 110 H 31 H 115/77 01/23/22 19:30 116 H 37 H 115/77 100 01/23/22 19:26 113 H 26 H 129/74 100 01/23/22 19:20 114 H 30 H 129/74 100 01/23/22 19:15 116 H 25 H 129/74 100 01/23/22 19:10 115 H 31 H 124/83 01/23/22 19:06 120 H 26 H 124/83 01/23/22 19:00 118 H 17 124/83 100 01/23/22 18:56 116 H 27 H 124/83 100 01/23/22 18:50 116 H 27 H 124/83 01/23/22 18:46 121 H 26 H 124/83 99 01/23/22 18:40 123 H 27 H 124/83 99 01/23/22 18:36 123 H 20 124/83 99 01/23/22 18:30 123 H 29 H 102/62 98 01/23/22 18:26 123 H 31 H 102/62 97 01/23/22 18:20 136 H 102/62 94 01/23/22 18:16 144 H 42 H 102/62 87 01/23/22 18:10 132 H 27 H 102/62 97 01/23/22 18:06 117 H 14 102/62 98 01/23/22 18:00 107 H 26 H 102/62 98 01/23/22 17:56 105 H 25 H 109/70 97 01/23/22 17:50 107 H 25 H 109/70 99 01/23/22 17:46 106 H 26 H 109/70 98 01/23/22 17:40 107 H 23 121/72 98 01/23/22 17:36 108 H 18 121/72 99 01/23/22 17:30 117 H 13 121/72 98 01/23/22 17:26 110 H 23 121/72 100 01/23/22 17:20 110 H 16 121/72 01/23/22 17:16 115 H 16 121/72 01/23/22 17:10 112 H 25 H 121/72 01/23/22 17:06 107 H 24 121/72 01/23/22 17:00 104 H 23 121/72 01/23/22 16:56 105 H 24 115/67 01/23/22 16:50 110 H 25 H 115/67 01/23/22 16:46 111 H 25 H 115/67 01/23/22 16:40 107 H 25 H 115/67 01/23/22 16:36 107 H 25 H 115/67 01/23/22 16:30 108 H 25 H 115/67 01/23/22 16:26 108 H 26 H 111/70 01/23/22 16:20 109 H 27 H 111/70 01/23/22 16:16 110 H 27 H 111/70 01/23/22 16:10 109 H 24 111/70 01/23/22 16:06 108 H 24 111/70 01/23/22 16:00 100.0 F H 108 H 107 H 25 H 111/70 01/23/22 15:56 107 H 25 H 127/73 01/23/22 15:50 107 H 25 H 127/73 01/23/22 15:46 108 H 26 H 127/73 01/23/22 15:40 109 H 27 H 127/73 01/23/22 15:36 106 H 26 H 127/73 01/23/22 15:35 101.6 F H 01/23/22 15:30 109 H 26 H 127/73 01/23/22 15:26 111 H 27 H 131/79 01/23/22 15:20 118 H 30 H 131/79 01/23/22 15:16 116 H 32 H 131/79 01/23/22 15:10 117 H 29 H 131/79 01/23/22 15:05 122 H 18 131/79 01/23/22 15:04 117 H 22 131/75 01/23/22 13:36 101 H 27 H 131/75 100 01/23/22 13:30 101 H 27 H 131/75 01/23/22 13:26 104 H 26 H 112/68 100 01/23/22 13:20 106 H 30 H 112/68 100 01/23/22 13:16 105 H 27 H 112/68 100 01/23/22 13:10 105 H 28 H 112/01/23/22 13:06 107 H 27 H 112/01/23/22 13:00 107 H 27 H 123/68 100 - Physical Examination General: Other (Somnolent, but breathing comfortably on room air) HEENT: Positive: PERRL Neck: Positive: neck supple Cardiac: Positive: Regular Rhythm Lungs: Positive: Decreased Breath Sounds Neuro: Positive: Weakness (Generalized lethargy) Abdomen: Positive: Soft Skin: Positive: Clear Extremities: Absent: edema - Labs and Meds Cardiac Enzymes 01/23/22 01/24/22 Range/Units 20:54 03:15 AST 132 H (5-40) units/L CK-MB (CK-2) 38.7 H (0.0-4.0) ng/mL CBC 01/24/22 Range/Units 03:15 WBC 13.0 H (4.5-11.0) K/mm3 RBC 4.88 (3.65-5.03) M/mm3 Hgb 11.8 (10.1-14.3) gm/dl Hct 37.9 (30.3-42.9) % Plt Count 187 (140-440) K/mm3 Comprehensive Metabolic Panel 01/23/22 01/24/22 01/24/22 Range/Units 18:52 00:08 03:15 Sodium 142 141 144 (137-145) mmol/L Potassium 4.4 D 3.8 3.9 (3.6-5.0) mmol/L Chloride 106.9 107.0 108.7 H (98-107) mmol/L Carbon Dioxide 21 L 24 25 (22-30) mmol/L BUN 31 H 30 H 29 H (7-17) mg/dL Creatinine 1.0 0.9 0.8 (0.6-1.2) mg/dL Glucose 114 H 159 H 150 H (65-100) mg/dL Calcium 8.4 8.0 L 7.8 L (8.4-10.2) mg/dL AST 132 H (5-40) units/L ALT 59 H (7-56) units/L Alkaline Phosphatase 84 (35-129) units/L Total Protein 6.6 (6.3-8.2) g/dL Albumin 3.1 L (3.9-5) g/dL 01/24/ Range/Units 07:47 Sodium 143 (137-145) mmol/L Potassium 3.8 (3.6-5.0) mmol/L Chloride 109.1 H (98-107) mmol/L Carbon Dioxide 26 (22-30) mmol/L BUN 25 H (7-17) mg/dL Creatinine 0.8 (0.6-1.2) mg/dL Glucose 131 H (65-100) mg/dL Calcium 7.9 L (8.4-10.2) mg/dL AST (5-40) units/L ALT (7-56) units/L Alkaline Phosphatase (35-129) units/L Total Protein (6.3-8.2) g/dL Albumin (3.9-5) g/dL
--- NOTE | 2022-01-24 13:13 | Electrocardiograph Report ---
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
--- NOTE | 2022-01-24 13:19 | Electrocardiograph Report ---
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
--- NOTE | 2022-01-24 14:48 | Magnetic Resonance Report ---
MRA HEAD WITHOUT CONTRAST HISTORY: Recent Left parietal stroke. COMPARISON: CTA head 01/23/2022 TECHNIQUE: Routine MRA of the head performed. 3-D/MIP reformats postprocessed. FINDINGS: MRA HEAD: OVERVIEW: There is no evidence of intracranial stenosis or large vessel occlusion. There is no eviden ce of aneurysm or other vascular malformation. Intracranial vertebral arteries: Mild dominance of the left vertebral artery is noted. Both vertebral arteries contribute to the basilar artery origin. Basilar artery: Basilar artery has an unremarkable appearance. Posterior cerebral arteries: Normal and symmetrical appearing posterior cerebral arteries are identif ied. There is a left-sided posterior communicating artery. I do not identify a right-sided posterior communicating artery. Intracranial internal carotid arteries: No indication of hemodynamically significant stenosis or othe r abnormality. Anterior cerebral arteries: Bilaterally symmetrical A1 segments of the anterior cerebral arteries are demonstrated. No abnormalities are seen along the course of the A2 segments or visualized pericallos al branches. A small anterior communicating artery is identified. Middle cerebral arteries: Normal and symmetrical M1 segments are demonstrated bilaterally. No abnorma lities are seen on evaluation of the insular or opercular branches of the middle cerebral arteries. [place]:Not intact. See above discussion. IMPRESSION: 1. No significant abnormalities are identified on MRA head. No change since CTA head 01/23/2022. Signer Name: Garo Reeder MD Signed: 01/24/2022 2:44 PM Workstation Name: [id number]
--- NOTE | 2022-01-24 15:12 | Consultation ---
History of Present Illness Consult date: 01/24/22 Chief complaint: CVA History of present illness: The patient was consulted for CVA . The patient was admitted for FL and following FL developed CVA , status post Stents Past History Past Medical History: arthritis, diabetes, hypertension Past Surgical History: , Other () Social history: smoking Family history: diabetes, hypertension Medications and Allergies Allergies Allergy/AdvReac Type Severity Reaction Status Date / Time No Known Allergies Allergy Verified 01/21/22 23:36 Home Medications Medication Instructions Recorded Confirmed Last Taken Type No Known Home Medications [No 01/24/22 01/24/22 Unknown History Reported Home Medications] Active Meds: Active Medications Acetaminophen (Acetaminophen 325 Mg Tab) 650 mg PO Q6H PRN PRN Reason: Pain, Mild (1-3) Last Admin: 01/23/22 15:38 Dose: 650 mg Aspirin (Aspirin 81 Mg Tab Chew) 81 mg FEEDTUBE QDAY [facility] Atorvastatin Calcium (Atorvastatin 40 Mg Tab) 40 mg FEEDTUBE QHS [facility] Last Admin: 01/23/22 23:10 Dose: 40 mg Clopidogrel Bisulfate (Clopidogrel 75 Mg Tab) 75 mg FEEDTUBE QDAY [facility] Last Admin: 01/24/22 09:10 Dose: 75 mg Dextrose (Dextrose 50% In Water (25gm) 50 Ml Syringe) 50 ml IV Q30MIN PRN; Protocol PRN Reason: Hypoglycemia Docusate Sodium (Docusate Sodium 100 Mg/10 Ml Oral Liqd) 100 mg FEEDTUBE BID [facility] Last Admin: 01/24/22 09:10 Dose: 100 mg Famotidine (Famotidine 20 Mg Tab) 40 mg FEEDTUBE QHS [facility] Last Admin: 01/23/22 23:09 Dose: 40 mg Furosemide (Furosemide 40 Mg/4 Ml Inj) 40 mg IV BID [facility] Last Admin: 01/24/22 09:14 Dose: 40 mg Haloperidol Lactate (Haloperidol Lactate 5 Mg/1 Ml Inj) 5 mg IV Q6HR PRN PRN Reason: Agitation Last Admin: 01/24/22 05:41 Dose: 5 mg Hydralazine HCl (Hydralazine 20 Mg/1 Ml Inj) 10 mg IV Q4HR PRN PRN Reason: Hypertension Last Admin: 01/22/22 17:19 Dose: 10 mg Dexmedetomidine HCl 200 mcg/ (Sodium Chloride) 50 mls @ 3.856 mls/hr IV TITRATE IVETTE; Protocol Last Titration: 01/23/22 08:57 Dose: 0 mcg/kg/hr, 0 mls/hr Ceftriaxone Sodium (Rocephin/Ns 2 Gm/100 Ml) 2 gm in 100 mls @ 200 mls/hr IV Q24H IVETTE; Protocol Last Infusion: 01/24/22 10:45 Dose: Infused Dobutamine HCl/Dextrose (Dobutrex Drip 500mg/D5w 250ml) 500 mg in 250 mls @ 5.783 mls/hr IV DIRECT IVETTE; Protocol Last Infusion: 01/23/22 14:00 Dose: 0 mcg/kg/min, 0 mls/hr Azithromycin (Zithromax/Ns) 500 mg in 250 mls @ 250 mls/hr IV Q24H IVETTE Last Admin: 01/24/22 10:05 Dose: 250 mls/hr Sodium Chloride (Nacl 3%) 500 mls @ 40 mls/hr IV DIRECT IVETTE Insulin Human Lispro (Insulin Lispro 100 Unit/Ml) 0 unit SUB-Q Q6HR IVETTE; Protocol Last Admin: 01/24/22 11:57 Dose: Not Given Lorazepam (Lorazepam 2 Mg/Ml Vial) 1 mg IV Q4HR PRN PRN Reason: Agitation Last Admin: 01/24/22 13:50 Dose: 1 mg Morphine Sulfate (Morphine 4 Mg/1 Ml Inj) 2 mg IV Q5MIN PRN PRN Reason: Chest Pain unrelieved by NTG Last Admin: 01/24/22 04:30 Dose: 2 mg Nitroglycerin (Nitroglycerin 0.4 Mg Tab Subl) 0.4 mg SL Q5M PRN PRN Reason: Chest Pain Last Admin: 01/22/22 09:16 Dose: 0.4 mg Ondansetron HCl (Ondansetron 4 Mg/2 Ml Inj) 4 mg IV Q4H PRN PRN Reason: Nausea And Vomiting Last Admin: 01/22/22 10:18 Dose: 4 mg Sodium Chloride (Sodium Chloride 0.9% 10 Ml Flush Syringe) 10 ml IV PRN PRN PRN Reason: LINE FLUSH Last Admin: 01/24/22 09:11 Dose: 10 ml Tramadol HCl (Tramadol 50 Mg Tab) 50 mg PO Q6H PRN PRN Reason: Pain, Moderate (4-6) Physical Examination - Vital Signs Vital Signs: Vital Signs Temp Pulse Resp BP Pulse Ox 99.1 F 113 H 24 228/150 94 01/21/22 22:56 01/21/22 22:56 01/21/22 22:56 01/21/22 22:56 01/21/22 22:56 - Physical Exam Narrative exam: The patient was not examined since the patient just returned from MRI Brain and is sleeping. Results - Laboratory Findings CBC and BMP: 01/24/22 03:15 01/24/22 07:47 Abnormal Lab Findings: Abnormal Labs 01/21/22 01/21/22 01/21/22 23:19 23:19 23:19 WBC RBC 5.76 H Hgb 14.4 H Hct 44.9 H MCV 78 L MCH 25 L RDW 17.2 H Lymph % (Auto) [place] # (Auto) Seg Neutrophils % Seg Neutrophils # Potassium 3.5 L Chloride Carbon Dioxide BUN Glucose 264 H POC Glucose Hemoglobin A1c 7.7 H Lactic Acid Calcium AST ALT Total Creatine Kinase 249 H CK-MB (CK-2) 18.5 H CK-MB (CK-2) Rel Index 7.4 H Troponin T 0.211 H* C-Reactive Protein Albumin Triglycerides 203 H Cholesterol 328 H LDL Cholesterol Direct 246 H 01/22/22 01/22/22 01/22/22 01:02 02:27 05:50 WBC RBC Hgb Hct MCV MCH RDW Lymph % (Auto) [place] # (Auto) Seg Neutrophils % Seg Neutrophils # Potassium Chloride Carbon Dioxide BUN Glucose POC Glucose 213 H 244 H Hemoglobin A1c Lactic Acid Calcium AST ALT Total Creatine Kinase 47248 H CK-MB (CK-2) 300.0 H CK-MB (CK-2) Rel Index Troponin T 71.610 H* C-Reactive Protein Albumin Triglycerides Cholesterol LDL Cholesterol Direct 01/22/22 01/22/22 01/22/22 10:10 10:10 10:10 WBC 11.1 H RBC Hgb Hct MCV 78 L MCH 25 L RDW 17.2 H Lymph % (Auto) [place] # (Auto) Seg Neutrophils % Seg Neutrophils # Potassium Chloride Carbon Dioxide BUN Glucose 293 H POC Glucose Hemoglobin A1c Lactic Acid Calcium AST ALT Total Creatine Kinase 8640 H CK-MB (CK-2) > 600.0 H CK-MB (CK-2) Rel Index 6.9 H Troponin T 18.270 H* D C-Reactive Protein Albumin Triglycerides Cholesterol LDL Cholesterol Direct 01/22/22 01/22/22 01/22/22 12:34 16:43 20:11 WBC 12.5 H RBC 5.17 H Hgb Hct MCV 77 L MCH 25 L RDW 17.5 H Lymph % (Auto) [place] # (Auto) Seg Neutrophils % Seg Neutrophils # Potassium Chloride Carbon Dioxide BUN Glucose POC Glucose 277 H 188 H Hemoglobin A1c Lactic Acid Calcium AST ALT Total Creatine Kinase CK-MB (CK-2) CK-MB (CK-2) Rel Index Troponin T C-Reactive Protein Albumin Triglycerides Cholesterol LDL Cholesterol Direct 01/22/22 01/22/22 01/23/22 20:11 21:37 04:14 WBC 16.0 H RBC 5.27 H Hgb Hct MCV 77 L MCH 25 L RDW 17.2 H Lymph % (Auto) 12.5 L [place] # (Auto) 1.1 H Seg Neutrophils % 80.1 H Seg Neutrophils # 12.8 H Potassium Chloride Carbon Dioxide 18 L BUN 18 H Glucose 191 H POC Glucose 206 H Hemoglobin A1c Lactic Acid Calcium AST 351 H ALT 119 H Total Creatine Kinase CK-MB (CK-2) CK-MB (CK-2) Rel Index Troponin T C-Reactive Protein Albumin Triglycerides Cholesterol LDL Cholesterol Direct 01/23/22 01/23/22 01/23/22 04:14 07:26 11:34 WBC RBC Hgb Hct MCV MCH RDW Lymph % (Auto) [place] # (Auto) Seg Neutrophils % Seg Neutrophils # Potassium 6.0 H D Chloride Carbon Dioxide 20 L BUN 26 H Glucose 156 H POC Glucose 177 H 130 H Hemoglobin A1c Lactic Acid Calcium AST ALT Total Creatine Kinase CK-MB (CK-2) CK-MB (CK-2) Rel Index Troponin T 8.010 H* D C-Reactive Protein Albumin Triglycerides Cholesterol LDL Cholesterol Direct 01/23/22 01/23/22 01/23/22 11:39 18:52 18:52 WBC RBC Hgb Hct MCV MCH RDW Lymph % (Auto) [place] # (Auto) Seg Neutrophils % Seg Neutrophils # Potassium Chloride Carbon Dioxide BUN Glucose POC Glucose 132 H Hemoglobin A1c Lactic Acid 2.50 H* Calcium AST ALT Total Creatine Kinase CK-MB (CK-2) CK-MB (CK-2) Rel Index Troponin T C-Reactive Protein 17.00 H Albumin Triglycerides Cholesterol LDL Cholesterol Direct 01/23/22 01/23/22 01/23/22 18:52 20:54 22:12 WBC RBC Hgb Hct MCV MCH RDW Lymph % (Auto) [place] # (Auto) Seg Neutrophils % Seg Neutrophils # Potassium Chloride Carbon Dioxide 21 L BUN 31 H Glucose 114 H POC Glucose 116 H Hemoglobin A1c Lactic Acid Calcium AST ALT Total Creatine Kinase 1650 H CK-MB (CK-2) 38.7 H CK-MB (CK-2) Rel Index Troponin T 9.970 H* D C-Reactive Protein Albumin Triglycerides Cholesterol LDL Cholesterol Direct 01/24/22 01/24/22 01/24/22 00:08 03:15 03:15 WBC 13.0 H RBC Hgb Hct MCV 78 L MCH 24 L RDW 17.3 H Lymph % (Auto) [place] # (Auto) Seg Neutrophils % Seg Neutrophils # Potassium Chloride 108.7 H Carbon Dioxide BUN 30 H 29 H Glucose 159 H 150 H POC Glucose Hemoglobin A1c Lactic Acid Calcium 8.0 L 7.8 L AST 132 H ALT 59 H Total Creatine Kinase CK-MB (CK-2) CK-MB (CK-2) Rel Index Troponin T C-Reactive Protein Albumin 3.1 L Triglycerides Cholesterol LDL Cholesterol Direct 01/24/22 01/24/22 01/24/22 05:12 07:32 07:47 WBC RBC Hgb Hct MCV MCH RDW Lymph % (Auto) [place] # (Auto) Seg Neutrophils % Seg Neutrophils # Potassium Chloride 109.1 H Carbon Dioxide BUN 25 H Glucose 131 H POC Glucose 144 H 126 H Hemoglobin A1c Lactic Acid Calcium 7.9 L AST ALT Total Creatine Kinase CK-MB (CK-2) CK-MB (CK-2) Rel Index Troponin T C-Reactive Protein Albumin Triglycerides Cholesterol LDL Cholesterol Direct 01/24/22 11:18 WBC RBC Hgb Hct MCV MCH RDW Lymph % (Auto) [place] # (Auto) Seg Neutrophils % Seg Neutrophils # Potassium Chloride Carbon Dioxide BUN Glucose POC Glucose 157 H Hemoglobin A1c Lactic Acid Calcium AST ALT Total Creatine Kinase CK-MB (CK-2) CK-MB (CK-2) Rel Index Troponin T C-Reactive Protein Albumin Triglycerides Cholesterol LDL Cholesterol Direct Assessment and Plan 1. CVA ( Artery to Artery Embolus - awaits MRI Brain . 2. Reviewed CT Brain and CTA - discussed findings with patient . 3. Explained issue with Patients daughter 4. Continue All Home Medications for now . 5. Follow up in am and call back with questions . Dr. Murphy
--- NOTE | 2022-01-24 15:21 | Progress Note ---
Subjective Date of service: 01/24/22 Principal diagnosis: Acute STEMI Interval history: I am in agreement with transfer to [place] Katherine Donaldson Objective - Vital Sign Vital Signs - 12hr 01/24/22 01/24/22 01/24/22 03:26 03:29 03:30 Temperature 98.0 F Pulse Rate 118 H 115 H Pulse Rate [ From Monitor] Respiratory 33 H 29 H Rate Blood Pressure 142/83 145/82 O2 Sat by Pulse 100 100 Oximetry 01/24/22 01/24/22 01/24/22 03:36 03:40 03:45 Temperature Pulse Rate 115 H 117 H 114 H Pulse Rate [ From Monitor] Respiratory 27 H 27 H 30 H Rate Blood Pressure 145/82 145/82 146/84 O2 Sat by Pulse 100 100 100 Oximetry 01/24/22 01/24/22 01/24/22 03:50 03:56 04:00 Temperature Pulse Rate 114 H 119 H 118 H Pulse Rate [ From Monitor] Respiratory 27 H 30 H 28 H Rate Blood Pressure 146/84 145/82 152/91 O2 Sat by Pulse 100 100 100 Oximetry 01/24/22 01/24/22 01/24/22 04:06 04:10 04:15 Temperature Pulse Rate 114 H 113 H 114 H Pulse Rate [ From Monitor] Respiratory 29 H 31 H 26 H Rate Blood Pressure 152/91 152/91 161/89 O2 Sat by Pulse 100 100 100 Oximetry 01/24/22 01/24/22 01/24/22 04:20 04:26 04:30 Temperature Pulse Rate 127 H 133 H 133 H Pulse Rate [ From Monitor] Respiratory 30 H 35 H 37 H Rate Blood Pressure 161/89 161/89 161/89 O2 Sat by Pulse 100 90 93 Oximetry 01/24/22 01/24/22 01/24/22 04:36 04:40 04:45 Temperature Pulse Rate 120 H 118 H 121 H Pulse Rate [ From Monitor] Respiratory 28 H 30 H 21 Rate Blood Pressure 153/90 153/90 161/100 O2 Sat by Pulse 98 96 93 Oximetry 01/24/22 01/24/22 01/24/22 04:50 04:56 05:00 Temperature Pulse Rate 120 H 123 H 120 H Pulse Rate [ From Monitor] Respiratory 22 20 33 H Rate Blood Pressure 161/100 161/100 169/88 O2 Sat by Pulse 93 92 90 Oximetry 01/24/22 01/24/22 01/24/22 05:06 05:10 05:15 Temperature Pulse Rate 121 H 121 H 118 H Pulse Rate [ From Monitor] Respiratory 24 23 49 H Rate Blood Pressure 169/88 169/88 153/92 O2 Sat by Pulse 92 96 99 Oximetry 01/24/22 01/24/22 01/24/22 05:20 05:26 05:30 Temperature Pulse Rate 123 H 126 H 120 H Pulse Rate [ From Monitor] Respiratory 18 39 H 43 H Rate Blood Pressure 153/92 153/92 170/91 O2 Sat by Pulse 97 98 100 Oximetry 01/24/22 01/24/22 01/24/22 05:36 05:40 05:46 Temperature Pulse Rate 121 H 120 H 137 H Pulse Rate [ From Monitor] Respiratory 43 H 52 H 31 H Rate Blood Pressure 170/91 170/91 165/99 O2 Sat by Pulse 98 100 99 Oximetry 01/24/22 01/24/22 01/24/22 05:50 05:56 06:00 Temperature Pulse Rate 126 H 128 H 128 H Pulse Rate [ From Monitor] Respiratory 30 H 20 29 H Rate Blood Pressure 165/99 165/99 160/102 O2 Sat by Pulse 98 93 98 Oximetry 01/24/22 01/24/22 01/24/22 06:06 06:10 06:15 Temperature Pulse Rate 114 H 115 H 124 H Pulse Rate [ From Monitor] Respiratory 31 H 41 H 24 Rate Blood Pressure 160/102 160/102 159/97 O2 Sat by Pulse 93 98 98 Oximetry 01/24/22 01/24/22 01/24/22 06:20 06:26 06:30 Temperature Pulse Rate 122 H 124 H 121 H Pulse Rate [ From Monitor] Respiratory 11 L 22 23 Rate Blood Pressure 159/97 159/97 160/91 O2 Sat by Pulse 99 98 96 Oximetry 01/24/22 01/24/22 01/24/22 06:36 06:40 06:45 Temperature Pulse Rate 121 H 122 H 117 H Pulse Rate [ From Monitor] Respiratory 13 19 24 Rate Blood Pressure 160/91 160/91 141/86 O2 Sat by Pulse 97 96 95 Oximetry 01/24/22 01/24/22 01/24/22 06:50 06:56 07:00 Temperature Pulse Rate 118 H 123 H 123 H Pulse Rate [ From Monitor] Respiratory 42 H 23 22 Rate Blood Pressure 141/86 141/86 163/96 O2 Sat by Pulse 97 98 98 Oximetry 01/24/22 01/24/22 01/24/22 07:06 07:10 07:15 Temperature Pulse Rate 125 H 126 H 124 H Pulse Rate [ From Monitor] Respiratory 36 H 17 Rate Blood Pressure 163/96 163/96 180/106 O2 Sat by Pulse 92 85 96 Oximetry 01/24/22 01/24/22 01/24/22 07:20 07:24 07:26 Temperature 98.9 F Pulse Rate 126 H 121 H Pulse Rate [ From Monitor] Respiratory 18 20 Rate Blood Pressure 180/106 180/106 O2 Sat by Pulse 100 98 Oximetry 01/24/22 01/24/22 01/24/22 07:30 07:36 07:40 Temperature Pulse Rate 126 H 125 H 120 H Pulse Rate [ From Monitor] Respiratory 25 H 30 H 24 Rate Blood Pressure 161/104 161/104 161/104 O2 Sat by Pulse 100 98 100 Oximetry 01/24/22 01/24/22 01/24/22 07:44 07:45 07:50 Temperature Pulse Rate 116 H 118 H 135 H Pulse Rate [ From Monitor] Respiratory 28 H 35 H Rate Blood Pressure 175/97 175/97 O2 Sat by Pulse 100 98 Oximetry 01/24/22 01/24/22 01/24/22 07:56 08:00 08:06 Temperature Pulse Rate 123 H 118 H 117 H Pulse Rate [ 118 H From Monitor] Respiratory 27 H 26 H 25 H Rate Blood Pressure 175/97 171/96 171/96 O2 Sat by Pulse 98 98 100 Oximetry 01/24/22 01/24/22 01/24/22 08:10 08:16 08:20 Temperature Pulse Rate 116 H 117 H 120 H Pulse Rate [ From Monitor] Respiratory 28 H 28 H 28 H Rate Blood Pressure 171/96 171/96 171/96 O2 Sat by Pulse 83 L 99 100 Oximetry 01/24/22 01/24/22 01/24/22 08:26 08:30 08:34 Temperature Pulse Rate 118 H 118 H Pulse Rate [ From Monitor] Respiratory 27 H 28 H Rate Blood Pressure 171/96 157/93 O2 Sat by Pulse 100 100 100 Oximetry 01/24/22 01/24/22 01/24/22 08:36 08:40 08:46 Temperature Pulse Rate 122 H 120 H 116 H Pulse Rate [ From Monitor] Respiratory 29 H 27 H 27 H Rate Blood Pressure 157/93 157/93 157/93 O2 Sat by Pulse 100 100 100 Oximetry 01/24/22 01/24/22 01/24/22 08:50 08:56 09:00 Temperature Pulse Rate 117 H 121 H 118 H Pulse Rate [ From Monitor] Respiratory 27 H 27 H 28 H Rate Blood Pressure 157/93 157/93 165/96 O2 Sat by Pulse 100 100 100 Oximetry 01/24/22 01/24/22 01/24/22 09:06 09:10 09:16 Temperature Pulse Rate 118 H 119 H 118 H Pulse Rate [ From Monitor] Respiratory 27 H 26 H 27 H Rate Blood Pressure 157/93 157/93 157/93 O2 Sat by Pulse 100 100 100 Oximetry 01/24/22 01/24/22 01/24/22 09:20 09:26 09:30 Temperature Pulse Rate 120 H 119 H 117 H Pulse Rate [ From Monitor] Respiratory 27 H 28 H 26 H Rate Blood Pressure 157/93 157/93 177/81 O2 Sat by Pulse 100 100 100 Oximetry 01/24/22 01/24/22 01/24/22 09:36 09:40 09:46 Temperature Pulse Rate 120 H 137 H 138 H Pulse Rate [ From Monitor] Respiratory 28 H 35 H 35 H Rate Blood Pressure 177/81 177/81 177/81 O2 Sat by Pulse 100 99 98 Oximetry 01/24/22 01/24/22 01/24/22 09:50 09:56 10:00 Temperature Pulse Rate 137 H 134 H 133 H Pulse Rate [ From Monitor] Respiratory 36 H 40 H 27 H Rate Blood Pressure 177/81 177/81 169/103 O2 Sat by Pulse 95 100 98 Oximetry 01/24/22 01/24/22 01/24/22 10:06 10:10 10:16 Temperature Pulse Rate 137 H 131 H 123 H Pulse Rate [ From Monitor] Respiratory 24 28 H 27 H Rate Blood Pressure 169/103 169/103 169/103 O2 Sat by Pulse 99 99 100 Oximetry 01/24/22 01/24/22 01/24/22 10:20 10:26 10:30 Temperature Pulse Rate 126 H 122 H 126 H Pulse Rate [ From Monitor] Respiratory 31 H 27 H 26 H Rate Blood Pressure 169/103 169/103 160/96 O2 Sat by Pulse 100 100 100 Oximetry 01/24/22 01/24/22 01/24/22 11:00 11:30 11:52 Temperature 98.3 F Pulse Rate 123 H 118 H Pulse Rate [ From Monitor] Respiratory 26 H 28 H Rate Blood Pressure 150/92 163/81 O2 Sat by Pulse 100 100 Oximetry 01/24/22 01/24/22 01/24/22 12:00 12:30 13:00 Temperature Pulse Rate 128 H 122 H 124 H Pulse Rate [ 126 H From Monitor] Respiratory 27 H 27 H 28 H Rate Blood Pressure 153/104 169/98 169/98 O2 Sat by Pulse 100 99 99 Oximetry 01/24/22 01/24/22 14:24 14:30 Temperature Pulse Rate 122 H 118 H Pulse Rate [ From Monitor] Respiratory 26 H Rate Blood Pressure 175/92 146/84 O2 Sat by Pulse 99 100 Oximetry - Laboratory Findings CBC and BMP: 01/24/22 03:15 01/24/22 07:47 Abnormal Lab Findings: Abnormal Labs 01/21/22 01/21/22 01/21/22 23:19 23:19 23:19 WBC RBC 5.76 H Hgb 14.4 H Hct 44.9 H MCV 78 L MCH 25 L RDW 17.2 H Lymph % (Auto) [place] # (Auto) Seg Neutrophils % Seg Neutrophils # Potassium 3.5 L Chloride Carbon Dioxide BUN Glucose 264 H POC Glucose Hemoglobin A1c 7.7 H Lactic Acid Calcium AST ALT Total Creatine Kinase 249 H CK-MB (CK-2) 18.5 H CK-MB (CK-2) Rel Index 7.4 H Troponin T 0.211 H* C-Reactive Protein Albumin Triglycerides 203 H Cholesterol 328 H LDL Cholesterol Direct 246 H 01/22/22 01/22/22 01/22/22 01:02 02:27 05:50 WBC RBC Hgb Hct MCV MCH RDW Lymph % (Auto) [place] # (Auto) Seg Neutrophils % Seg Neutrophils # Potassium Chloride Carbon Dioxide BUN Glucose POC Glucose 213 H 244 H Hemoglobin A1c Lactic Acid Calcium AST ALT Total Creatine Kinase 18838 H CK-MB (CK-2) 300.0 H CK-MB (CK-2) Rel Index Troponin T 71.610 H* C-Reactive Protein Albumin Triglycerides Cholesterol LDL Cholesterol Direct 01/22/22 01/22/22 01/22/22 10:10 10:10 10:10 WBC 11.1 H RBC Hgb Hct MCV 78 L MCH 25 L RDW 17.2 H Lymph % (Auto) [place] # (Auto) Seg Neutrophils % Seg Neutrophils # Potassium Chloride Carbon Dioxide BUN Glucose 293 H POC Glucose Hemoglobin A1c Lactic Acid Calcium AST ALT Total Creatine Kinase 8640 H CK-MB (CK-2) > 600.0 H CK-MB (CK-2) Rel Index 6.9 H Troponin T 18.270 H* D C-Reactive Protein Albumin Triglycerides Cholesterol LDL Cholesterol Direct 01/22/22 01/22/22 01/22/22 12:34 16:43 20:11 WBC 12.5 H RBC 5.17 H Hgb Hct MCV 77 L MCH 25 L RDW 17.5 H Lymph % (Auto) [place] # (Auto) Seg Neutrophils % Seg Neutrophils # Potassium Chloride Carbon Dioxide BUN Glucose POC Glucose 277 H 188 H Hemoglobin A1c Lactic Acid Calcium AST ALT Total Creatine Kinase CK-MB (CK-2) CK-MB (CK-2) Rel Index Troponin T C-Reactive Protein Albumin Triglycerides Cholesterol LDL Cholesterol Direct 01/22/22 01/22/22 01/23/22 20:11 21:37 04:14 WBC 16.0 H RBC 5.27 H Hgb Hct MCV 77 L MCH 25 L RDW 17.2 H Lymph % (Auto) 12.5 L [place] # (Auto) 1.1 H Seg Neutrophils % 80.1 H Seg Neutrophils # 12.8 H Potassium Chloride Carbon Dioxide 18 L BUN 18 H Glucose 191 H POC Glucose 206 H Hemoglobin A1c Lactic Acid Calcium AST 351 H ALT 119 H Total Creatine Kinase CK-MB (CK-2) CK-MB (CK-2) Rel Index Troponin T C-Reactive Protein Albumin Triglycerides Cholesterol LDL Cholesterol Direct 01/23/22 01/23/22 01/23/22 04:14 07:26 11:34 WBC RBC Hgb Hct MCV MCH RDW Lymph % (Auto) [place] # (Auto) Seg Neutrophils % Seg Neutrophils # Potassium 6.0 H D Chloride Carbon Dioxide 20 L BUN 26 H Glucose 156 H POC Glucose 177 H 130 H Hemoglobin A1c Lactic Acid Calcium AST ALT Total Creatine Kinase CK-MB (CK-2) CK-MB (CK-2) Rel Index Troponin T 8.010 H* D C-Reactive Protein Albumin Triglycerides Cholesterol LDL Cholesterol Direct 01/23/22 01/23/22 01/23/22 11:39 18:52 18:52 WBC RBC Hgb Hct MCV MCH RDW Lymph % (Auto) [place] # (Auto) Seg Neutrophils % Seg Neutrophils # Potassium Chloride Carbon Dioxide BUN Glucose POC Glucose 132 H Hemoglobin A1c Lactic Acid 2.50 H* Calcium AST ALT Total Creatine Kinase CK-MB (CK-2) CK-MB (CK-2) Rel Index Troponin T C-Reactive Protein 17.00 H Albumin Triglycerides Cholesterol LDL Cholesterol Direct 01/23/22 01/23/22 01/23/22 18:52 20:54 22:12 WBC RBC Hgb Hct MCV MCH RDW Lymph % (Auto) [place] # (Auto) Seg Neutrophils % Seg Neutrophils # Potassium Chloride Carbon Dioxide 21 L BUN 31 H Glucose 114 H POC Glucose 116 H Hemoglobin A1c Lactic Acid Calcium AST ALT Total Creatine Kinase 1650 H CK-MB (CK-2) 38.7 H CK-MB (CK-2) Rel Index Troponin T 9.970 H* D C-Reactive Protein Albumin Triglycerides Cholesterol LDL Cholesterol Direct 01/24/22 01/24/22 01/24/22 00:08 03:15 03:15 WBC 13.0 H RBC Hgb Hct MCV 78 L MCH 24 L RDW 17.3 H Lymph % (Auto) [place] # (Auto) Seg Neutrophils % Seg Neutrophils # Potassium Chloride 108.7 H Carbon Dioxide BUN 30 H 29 H Glucose 159 H 150 H POC Glucose Hemoglobin A1c Lactic Acid Calcium 8.0 L 7.8 L AST 132 H ALT 59 H Total Creatine Kinase CK-MB (CK-2) CK-MB (CK-2) Rel Index Troponin T C-Reactive Protein Albumin 3.1 L Triglycerides Cholesterol LDL Cholesterol Direct 01/24/22 01/24/22 01/24/22 05:12 07:32 07:47 WBC RBC Hgb Hct MCV MCH RDW Lymph % (Auto) [place] # (Auto) Seg Neutrophils % Seg Neutrophils # Potassium Chloride 109.1 H Carbon Dioxide BUN 25 H Glucose 131 H POC Glucose 144 H 126 H Hemoglobin A1c Lactic Acid Calcium 7.9 L AST ALT Total Creatine Kinase CK-MB (CK-2) CK-MB (CK-2) Rel Index Troponin T C-Reactive Protein Albumin Triglycerides Cholesterol LDL Cholesterol Direct 01/24/22 11:18 WBC RBC Hgb Hct MCV MCH RDW Lymph % (Auto) [place] # (Auto) Seg Neutrophils % Seg Neutrophils # Potassium Chloride Carbon Dioxide BUN Glucose POC Glucose 157 H Hemoglobin A1c Lactic Acid Calcium AST ALT Total Creatine Kinase CK-MB (CK-2) CK-MB (CK-2) Rel Index Troponin T C-Reactive Protein Albumin Triglycerides Cholesterol LDL Cholesterol Direct
--- NOTE | 2022-01-24 15:50 | XRay Report ---
ABDOMEN 1 VIEW(S) INDICATION / CLINICAL INFORMATION: New dobhoff placement. COMPARISON: Yesterday FINDINGS: TUBES / LINES: The distal tip of the feeding tube terminates in the distal stomach or just within the duodenal bulb. BOWEL GAS PATTERN: No significant abnormality. FREE AIR / EXTRALUMINAL GAS: None seen. ADDITIONAL FINDINGS: No significant additional findings. IMPRESSION: No acute process. Feeding tube as described. Signer Name: Isrrael Boston Jr, MD Signed: 01/24/2022 3:45 PM Workstation Name: [id number]
--- NOTE | 2022-01-24 18:02 | Discharge Summary ---
<ROSIE WHIPPLE - Last Filed: 01/24/22 18:31> Providers - Providers Date of Admission: 01/21/22 23:35 Date of discharge: 01/24/22 Attending physician: SHARLENE LOCK MD 01/21/22 Consult to Cardiac Rehabilitation [CONS] Routine Reason For Exam: Phase I 01/21/22 23:16 Consult to Physician [CONS] Urgent Comment: Dr. Morgan spoke with Dr. Templeton @ [phone] Consulting Provider: JO ANN TEMPLETON Physician Instructions: Reason For Exam: stemi Consult to Physician [CONS] Urgent Comment: Dr. Morgan spoke with Dr. Castro @ [phone] Consulting Provider: GEORGETTE CASTRO Physician Instructions: Reason For Exam: stemi 01/21/22 23:35 Consult to Cardiology [CONS] Routine Consulting Provider: JO ANN TEMPLETON Reason For Exam: stemi Consult to Dietitian/Nutrition [CONS] Routine Physician Instructions: Reason For Exam: Reason for Consult: Diet education 01/22/22 Consult to Cardiac Rehabilitation [CONS] Routine Reason For Exam: post pci 01/23/22 15:41 Consult to Physician [CONS] Routine Comment: call office/gracy Consulting Provider: JHOAN ZAPIEN Physician Instructions: Reason For Exam: cva Primary care physician: KAUSHAL CONNELLY Hospitalization Reason for admission: STEMI Condition: Critical Hospital course: This is a 66-year-old female with HTN, DM initially admitted for STEMI s/p PCI to the LAD. On 01/22 patient noted with significant neuro changes and encephalopathy, MRI brain revealed acute CVA Hospital Course to Date: 01/22: Patient was on nitroglycerin drip and due to hypotension blood pressure medications were adjusted. After nitroglycerin drip was increased patient became hypotensive and exhibited altered mental status with orientation to self only. Prior to this patient was having in conversation with staff. Patient was taken for a stat CT head which was negative. Dr. Templeton was updated. Aggrastat discontinued. Patient placed on heparin subcu and placed back on lisinopril. She will continue FIONA, beta-mac, Plavix and Lipitor. 01/23: Patient still having altered mental status, repeat CT head was negative, MRI brain pending. Patient started on dobutamine and CXR did not show pulmonary edema and blood pressures are on the softer side. Patient was given Lasix. She was given Haldol and Ativan also. 01/24: MRI brains shows acute stroke with edema, 3% saline was initiated for a Na goal of 150 to 155, serial labs ordered. TeleNeuro pending. Patient remains encephalopathic, but able to protect her airway, O2 supplemenation wean to 4L NC. Dobutamine gtt held overnight due to tachycardia and hypertension. Patient remains on IV lasix per [facility]. [facility] discussed case with [facility], possible transfer to [place] once bed is avalaible. Assessment and Plan #Acute Metabolic Encephalopathy 06/29 #Acute CVA -Patient had an acute change in mental status and was taken for a stat CT head -CT headX2 was negative for acute changes -MRI brain revealed acute infarct centered within the left parietal lobe and developing edema and mild mass-effect with sulcal effacement. See report for detail -On 3% saline gtt, NA goal 150-155 -Reorientation as needed -Maintain sleep-wake cycle -As needed analgesia -Prn haldol and ativan -Neurology is following #STEMI -Presented with CP, ECG was consistent with STEMI -Trend Troponin (admit 0.211, 0227: 71.6, 1010: 18.2) -s/p PCI with stent to LAD (due to 100% occlusion) -Cardiology consulted, appreciate recommendations -On ACEi, BB, Plavix, lipitor -Heparin subq -Blood pressure monitoring per protocol -Echocardiogram shows EF of 25-30% -Nitro SL prn #Acute Hypoxic Respiratory Failure #Possible CAP -Currently on NRB -Supplemental oxygen as needed -SPO2 monitor per protocol -Pulmonary hygiene #: NAD -Monitor intake and output -Renally dose medications -Avoid nephrotoxic medications -Trend BMP #ID: r/o CAP -Cefepime -vancomycin x1 -BC x 2 -follow up with BC -Procal and CRP pending -Monitor WBC and temperature curve #Endo: h/o DM -Hbg A1C 7.7 -SSI -Accu-Cheks ACHS -Long-acting insulin, titrate as needed -Avoid hypoglycemia #GI/DVT Prophylaxis -PPI- Pepcid -SCDs to bilateral lower extremities while in bed Disposition: 04 [facility] Final Discharge Diagnosis (Prints w/discharge instructions): Acute CVA. STEMI Time spent for discharge: 35 Core Measure Documentation - Palliative Care Palliative Care/ Comfort Measures: Not Applicable - Core Measures Any of the following diagnoses?: acute PR, heart failure, stroke - Acute PR Discharge Requirements Aspirin at discharge: Yes FIONA/ARB for LVSD if EF <40%: Yes Beta mac at discharge: Yes Statin for LDL = or >100 mg/dl on DC: Yes - Heart Failure Discharge Requirements FIONA/ARB for LVSD if EF <40%: Yes Beta mac at discharge: Yes - Stroke Discharge Requirements Statin for LDL = or >70 mg/dl on DC: Yes Anticoag for atrial fib/atrial flutter: Not Applicable Antithrombotic for ischemic stroke: Yes Exam - Constitutional Vitals: Temp Pulse Resp BP Pulse Ox 98.2 F 125 H 27 H 169/89 100 01/24/22 16:41 01/24/22 17:00 01/24/22 17:00 01/24/22 17:00 01/24/22 17:00 General appearance: Present: no acute distress, well-nourished, obese - EENT Eyes: Present: PERRL - Neck Neck: Present: normal ROM - Respiratory Respiratory effort: accessory muscle use, other (Tachypnea) Respiratory: bilateral: diminished - Cardiovascular Rhythm: regular Heart Sounds: Present: S1 & S2 - Extremities Extremities: no ischemia, pulses intact, pulses symmetrical Extremity abnormal: edema - Peripheral Assessment Generalized Edema Type: Non-pitting Edema Degree: 2+ Capillary Refill: < 3 seconds Skin Temperature: Warm Peripheral Pulses: within normal limits - Abdominal General gastrointestinal: Present: soft, non-distended, normal bowel sounds Female genitourinary: Present: deferred - Rectal Rectal Exam: deferred - Integumentary Integumentary: Present: warm, dry - Musculoskeletal Musculoskeletal: generalized weakness - Psychiatric Psychiatric: other (Lethargic, confused) - Neurologic Neurologic: moves all extremities, other (Confused) - Allied Health Allied health notes reviewed: nursing, case management Plan Activity: other (Per facility) Diet: other (TF) Wound: open to air Follow up with: KAUSHAL CONNELLY MD [Primary Care Provider] - 3-5 Days <SHARLENE LOCK - Last Filed: 01/25/22 07:30> Providers - Providers Date of Admission: 01/21/22 23:35 Attending physician: SHARLENE LOCK MD 01/21/22 Consult to Cardiac Rehabilitation [CONS] Routine Reason For Exam: Phase I 01/21/22 23:16 Consult to Physician [CONS] Urgent Comment: Dr. Morgan spoke with Dr. Templeton @ [phone] Consulting Provider: JO ANN TEMPLETON Physician Instructions: Reason For Exam: stemi Consult to Physician [CONS] Urgent Comment: Dr. Morgan spoke with Dr. Castro @ [phone] Consulting Provider: GEORGETTE CASTRO Physician Instructions: Reason For Exam: stemi 01/21/22 23:35 Consult to Cardiology [CONS] Routine Consulting Provider: JO ANN TEMPLETON Reason For Exam: stemi Consult to Dietitian/Nutrition [CONS] Routine Physician Instructions: Reason For Exam: Reason for Consult: Diet education 01/22/22 Consult to Cardiac Rehabilitation [CONS] Routine Reason For Exam: post pci 01/23/22 15:41 Consult to Physician [CONS] Routine Comment: call office/gracy Consulting Provider: JHOAN ZAPIEN Physician Instructions: Reason For Exam: cva Primary care physician: KAUSHAL CONNELLY Hospitalization Hospital course: I saw and evaluated the patient. I agree with the findings and the plan of care as documented in the Nurse Practitioner's~note, with the following corrections and additions. Exam - Constitutional Vitals: Temp Pulse Resp BP Pulse Ox 98.2 F 122 H 26 H 168/91 100 01/24/22 16:41 01/24/22 18:00 01/24/22 18:00 01/24/22 18:00 01/24/22 18:00
[2022-01-24 18:12] VITALS: BP 168/91
[2022-01-24] MEDS ORDERED: METOPROLOL TARTRATE 25 MG TAB PO SCH (22:00)
[2022-01-25] MEDS ORDERED: ASPIRIN 81 MG TAB CHEW FEEDTUBE SCH (10:00)
== END 2022-01-24 19:09 | disposition short-term general hospital (02) | DRG 246 ==
LOC: ED 22:55 → CC1 23:35
PROVIDERS: ADMIT Hospitalist; ATTEND Internal Medicine
PROC: 027034Z Dilation of Coronary Artery, One Artery with Drug-eluting Intraluminal Device, Percutaneous Approach (ICD-10-PCS; principal; 2022-01-21)
PROC: 02C03ZZ Extirpation of Matter from Coronary Artery, One Artery, Percutaneous Approach (ICD-10-PCS; 2022-01-21)
PROC: 4A023N7 Measurement of Cardiac Sampling and Pressure, Left Heart, Percutaneous Approach (ICD-10-PCS; 2022-01-21)
PROC: B2111ZZ Fluoroscopy of Multiple Coronary Arteries using Low Osmolar Contrast (ICD-10-PCS; 2022-01-21)
PROC: 02HV33Z Insertion of Infusion Device into Superior Vena Cava, Percutaneous Approach (ICD-10-PCS; 2022-01-23)
PROC: B548ZZA Ultrasonography of Superior Vena Cava, Guidance (ICD-10-PCS; 2022-01-23)
DX: I21.3 ST elevation (STEMI) myocardial infarction of unspecified site (principal); G93.41 Metabolic encephalopathy; J96.01 Acute respiratory failure with hypoxia; I63.9 Cerebral infarction, unspecified; J18.9 Pneumonia, unspecified organism; I16.1 Hypertensive emergency; I50.40 Unspecified combined systolic (congestive) and diastolic (congestive) heart failure; E87.6 Hypokalemia; D72.829 Elevated white blood cell count, unspecified; Z20.822 Contact with and (suspected) exposure to COVID-19; E11.9 Type 2 diabetes mellitus without complications; M19.90 Unspecified osteoarthritis, unspecified site; F17.200 Nicotine dependence, unspecified, uncomplicated; I11.0 Hypertensive heart disease with heart failure; Z82.49 Family history of ischemic heart disease and other diseases of the circulatory system; Z83.3 Family history of diabetes mellitus
CPT/HCPCS: 36415; 70450; 70496; 70498; 70544; 70551; 71045; 74018; 80048; 80053; 80061; 81001; 82140; 82550; 82553; 82803; 82962; 83036; 83735; 83935; 84100; 84145; 84300; 84484; 85014; 85018; 85025; 85027; 85610; 85730; 86140; 86850; 86900; 86901; 87040; 92941; 93005; 93306; 93454; 94760; 96374; 99285; G0378; J1815; J3490; J7121; Q9967; C1725; C1769; C1874; C1887; C1894; C8929; C9606; J0360; J0456; J0696; J1250; J1630; J1644; J1940; J2060; J2250; J2270; J2405; J3010; J3246; J7030; U0003